=== PATIENT | male | born 1940 | race African-American/Black ===

== ENCOUNTER 2017-04-02 19:24 | Observation (INO) | payer MEDICARE ==
[~2017-04-02] VITALS: Ht 175.3 cm; Wt 100.7 kg
[~2017-04-02 19:24] MED LIST: AMLO10TA2 PO; Atenolol PO; BIMA2.5D EACHEYE; COLC0.6T34 PO; FERR325C PO; FLUT1DIS3 IH
[2017-04-02] MEDS ORDERED: FAMOTIDINE 20 MG/2 ML VIAL ONE (19:28)
[2017-04-02] MEDS ORDERED: methylPREDNISolone SOD SUCC PF 125 MG/2 ML VIAL. ONE (19:28)
[2017-04-02] MEDS ORDERED: diphenhydrAMINE 50 MG/ML VIAL ONE (19:28)
[2017-04-02] MEDS ORDERED: EPINEPHrine 1 MG/ML VIAL ONE (19:28)
[2017-04-02 19:43] LABS: BASO # 0.1 x10^3/uL (0.0-0.2); BASO % 1 % (0-3); EOS % 8 % (0-3); HEMOGLOBIN 15.5 g/dL (13.0-17.5); LYMPH # 3.6 x10^3/uL (1.0-4.8); LYMPH % 39 % (24-48); MEAN CORPUSCULAR HEMOGLOBIN 30 pg (25-35); MEAN CORPUSCULAR HGB CONC 33 g/dL (31-37); MEAN CORPUSCULAR VOLUME 89 fL (79-100); MONO % 12 % (0-9); NEUT % 40 % (31-73); PLATELET COUNT 338 x10^3/uL (140-400); RED BLOOD COUNT 5.27 x10^6/uL (4.30-5.70); RED CELL DISTRIBUTION WIDTH 14.2 % (11.5-14.5); WHITE BLOOD COUNT 9.3 x10^3/uL (4.0-11.0)
[2017-04-02] MEDS ORDERED: EPINEPHrine 1 MG/ML VIAL IM ONE ×2 (19:45→20:30)
[2017-04-02] MEDS ORDERED: methylPREDNISolone SOD SUCC PF 125 MG/2 ML VIAL. IV ONE (19:45)
[2017-04-02] MEDS ORDERED: FAMOTIDINE 20 MG/2 ML VIAL IVP ONE (19:45)
[2017-04-02] MEDS ORDERED: diphenhydrAMINE 50 MG/ML VIAL IV ONE (19:45)
[2017-04-02 19:59] LABS: CALCIUM 9.4 mg/dL (8.5-10.1); CREATININE 0.9 mg/dL (0.7-1.3); GFR 99.3; POTASSIUM 4.1 mmol/L (3.5-5.1)
[2017-04-02] MEDS ORDERED: EPIN0.3A8 IJ (19:59)
--- NOTE | 2017-04-02 19:59 | PHYS DOC ---
Past Medical History Past Medical History: Hypertension, Other Additional Past Medical Histor: GOUT Past Surgical History: Other Additional Past Surgical Histo: EYE SURGERY Alcohol Use: None Drug Use: None Adult General Chief Complaint Chief Complaint: ALLERGIC REACTION HPI HPI 77-year-old male presenting to the emergency department after having allergic reaction throat swelling and tongue swelling. This started approximately an hour prior to arrival. He is had this episode a few times now and does not know what the inciting factor is. Duration constant. No alleviating or exacerbating factors. Timing nonspecific. He denies being on STUART inhibitor's. Review of systems is negative for chest pain shortness of breath. He does report mild difficulty swallowing. She denies confusion syncope. All other review of systems is negative unless otherwise noted in history of present illness. ED course: 77-year-old male presenting to the emergency department today with anaphylaxis. Less likely STUART inhibitor angioedema given the lack of STUART inhibitor history. IV established. Intramuscular epinephrine along with Benadryl and steroids given. On reexamination the patient had improved. Patient' s tongue was mildly swollen still. No stridor present. Otherwise much improvement. Because of the tongue swelling the patient was to overnight for medical monitoring. The patient was then admitted to Dr. warren for further evaluation workup and care. Review of Systems Review of Systems SEE ABOVE. Current Medications Current Medications Current Medications Medications (Trade) Dose Ordered Sig/Ken Start Time Stop Time Status Last Admin Dose Admin Diphenhydramine HCl (Benadryl) 25 mg 1X ONCE 04/02/17 19:45 04/02/17 19:46 DC 04/02/17 19:38 25 MG Epinephrine HCl (Adrenalin) 0.3 mg 1X ONCE 04/02/17 20:30 04/02/17 20:31 DC 04/02/17 20:21 0.3 MG Famotidine (Pepcid) 20 mg 1X ONCE 04/02/17 19:45 04/02/17 19:46 DC 04/02/17 19:38 20 MG Methylprednisolone Sodium Succinate (SOLU-Medrol 125MG VIAL) 125 mg 1X ONCE 04/02/17 19:45 04/02/17 19:46 DC 04/02/17 19:37 125 MG Allergies Allergies Allergies Coded Allergies Type Severity Reaction Last Updated Verified No Known Drug Allergies 07/23/14 No Physical Exam Physical Exam Constitutional: Well developed, well nourished, no acute distress, non-toxic appearance. [] HENT: Normocephalic, atraumatic, bilateral external ears normal, . The patient' s face has mild swelling generally. His tongue is swollen. He is able to control his secretions during the examination and is able to swallow. Mild swelling of the neck as well. No stridor present. Eyes: PERRLA, EOMI, conjunctiva normal, no discharge. Neck: Normal range of motion, no tenderness, supple, no stridor. [] Cardiovascular:Heart rate regular rhythm, no murmur [] Lungs & Thorax: Bilateral breath sounds clear to auscultation Abdomen: Bowel sounds normal, soft, no tenderness, no masses, no pulsatile masses. [] Skin: Warm, dry, no erythema, no rash. [] Back: No tenderness, no CVA tenderness. Extremities: No tenderness, no cyanosis, no clubbing, ROM intact, no edema. [] Neurologic: Alert and oriented X 3, normal motor function, normal sensory function, no focal deficits noted. Psychologic: Affect normal, judgement normal, mood normal. [] Current Patient Data Vital Signs Vital Signs Date Time Temp Pulse Resp B/P (MAP) Pulse Ox O2 Delivery O2 Flow Rate FiO2 04/02/17 19:33 97.9 73 15 178/93 (121) 99 Room Air 97.9 Lab Values Laboratory Tests Test 04/02/17 19:35 White Blood Count 9.3 x10^3/uL (4.0-11.0) Red Blood Count 5.27 x10^6/uL (4.30-5.70) Hemoglobin 15.5 g/dL (13.0-17.5) Hematocrit 47.0 % (39.0-53.0) Mean Corpuscular Volume 89 fL (79-100) Mean Corpuscular Hemoglobin 30 pg (25-35) Mean Corpuscular Hemoglobin Concent 33 g/dL (31-37) Red Cell Distribution Width 14.2 % (11.5-14.5) Platelet Count 338 x10^3/uL (140-400) Neutrophils (%) (Auto) 40 % (31-73) Lymphocytes (%) (Auto) 39 % (24-48) Monocytes (%) (Auto) 12 % (0-9) H Eosinophils (%) (Auto) 8 % (0-3) H Basophils (%) (Auto) 1 % (0-3) Neutrophils # (Auto) 3.8 x10^3uL (1.8-7.7) Lymphocytes # (Auto) 3.6 x10^3/uL (1.0-4.8) Monocytes # (Auto) 1.2 x10^3/uL (0.0-1.1) H Eosinophils # (Auto) 0.7 x10^3/uL (0.0-0.7) Basophils # (Auto) 0.1 x10^3/uL (0.0-0.2) Sodium Level 141 mmol/L (136-145) Potassium Level 4.1 mmol/L (3.5-5.1) Chloride Level 105 mmol/L (98-107) Carbon Dioxide Level 29 mmol/L (21-32) Anion Gap 7 (6-14) Blood Urea Nitrogen 11 mg/dL (8-26) Creatinine 0.9 mg/dL (0.7-1.3) Estimated GFR (Cockcroft-Gault) 99.3 Glucose Level 102 mg/dL (70-99) H Calcium Level 9.4 mg/dL (8.5-10.1) Laboratory Tests 04/02/17 19:35 Laboratory Tests 04/02/17 19:35 EKG EKG [] Radiology/Procedures Radiology/Procedures [] Course & Med Decision Making Course & Med Decision Making Pertinent Labs and Imaging studies reviewed. (See chart for details) [] Dragon Disclaimer Dragon Disclaimer This electronic medical record was generated, in whole or in part, using a voice recognition dictation system. Departure Departure Impression: Primary Impression: Anaphylaxis Disposition: 01 HOME, SELF-CARE Condition: IMPROVED Referrals: DANNY COLLADO MD (PCP) Patient Instructions: Anaphylactic Reaction Scripts Epinephrine (EPINEPHRINE) 0.3 Mg/0.3 Ml Auto.injct 0.3 MG IJ PRN Y for ANAPHYLAXIS, #1 Prov: ROXIE HEATON MD 04/02/17 Critical Care Time Critical care time was [42] minutes exclusive of procedures. Time was spent evaluating the patient, ordering the administration of epinephrine and other medications, reevaluating the patient, and discussing with the admitting provider. Time was also spent documenting. ROXIE HEATON MD Apr 02, 2017 19:59
[2017-04-02] MEDS ORDERED: MORPHINE SULFATE 2 MG/ML DISP.SYRIN. IV PRN (21:00)
[2017-04-02] MEDS ORDERED: ONDANSETRON PF 4 MG/2 ML VIAL. IV PRN (21:00)
[2017-04-02 21:30] VITALS: BP 171/90
[2017-04-02] MEDS ORDERED: ATEN50TA PO (21:33)
[2017-04-02 23:00] VITALS: BP 157/86
[2017-04-03 03:00] VITALS: BP 154/86
[2017-04-03 05:25] LABS: BASO % 0 % (0-3); EOS % 0 % (0-3); HEMATOCRIT 47.1 % (39.0-53.0); HEMOGLOBIN 15.9 g/dL (13.0-17.5); LYMPH # 1.2 x10^3/uL (1.0-4.8); LYMPH % 17 % (24-48); MEAN CORPUSCULAR HEMOGLOBIN 30 pg (25-35); MEAN CORPUSCULAR HGB CONC 34 g/dL (31-37); MEAN CORPUSCULAR VOLUME 88 fL (79-100); MONO % 1 % (0-9); NEUT % 82 % (31-73); PLATELET COUNT 359 x10^3/uL (140-400); RED BLOOD COUNT 5.36 x10^6/uL (4.30-5.70); RED CELL DISTRIBUTION WIDTH 14.3 % (11.5-14.5); WHITE BLOOD COUNT 7.2 x10^3/uL (4.0-11.0)
[2017-04-03 05:57] LABS: CALCIUM 9.5 mg/dL (8.5-10.1); GFR 87.9; POTASSIUM 4.4 mmol/L (3.5-5.1)
[2017-04-03 07:00] VITALS: BP 149/93
[2017-04-03] MEDS ORDERED: NON FORMULARY ITEM (Fluticasone/Salmeterol (Advair 250-50 Diskus) 1 PUFF) IH PRN (09:30)
[2017-04-03] MEDS ORDERED: ATENOLOL 50 MG TABLET. PO SCH (10:00)
[2017-04-03] MEDS ORDERED: amLODIPine BESYLATE 10 MG TABLET PO SCH (10:00)
[2017-04-03 10:52] VITALS: BP 139/88
[2017-04-03] MEDS ORDERED: BUDESONIDE 0.5 MG/2 ML NEBU. NEB SCH (11:00)
[2017-04-03] MEDS ORDERED: ALBUTEROL SULFATE 2.5 MG/3 ML NEBU. NEB SCH (12:00)
[2017-04-03] MEDS ORDERED: EPIPEN 2-P0.3 MG/0.3 IJ (12:47)
[2017-04-03] MEDS ORDERED: PROAIR HFA8.5 GM INH (12:47)
[2017-04-03] MEDS ORDERED: LATANOPROST 0.005% OPHTH SOLUTION 2.5ML BOTTLE. OU SCH (21:00)
--- NOTE | 2017-04-04 00:16 | HP ---
ADMIT DATE: 04/02/2017 ADMITTING DIAGNOSES AND CHIEF COMPLAINT: Tongue and neck swelling. HISTORY OF PRESENT ILLNESS AND HOSPITAL COURSE: This patient is a 77-year-old -[place] male who was in usual state of health when he woke up with swollen tongue and neck. He had had minimal difficulty breathing, but had increased swelling, it was not resolved; therefore, came to Emergency Room for further evaluation. He was felt to have an allergic reaction and the patient does state he had a ____ back up in his home and had some wetness in his carpet and the cleaning company came and cleaned the carpet and some of the chemicals may have caused him to react. The patient was given IV steroids and treated in the Emergency Room and resolved, but due to clear recurrence and overt obstruction, he was admitted overnight for evaluation. The patient's symptoms continued to improve and no further evidence of allergies, therefore, plans for discharge to home were made and the patient was given EpiPen for recurrent Emergency symptoms and told to refer to Emergency Room if increased swelling does occur. He was discharged on his previous home medications without change and will follow up in the clinic in 2-3 days for continued care. PAST MEDICAL HISTORY: Significant for, 1. Asthma. 2. Hypertension. 3. Morbid obesity. 4. Hyperlipidemia. 5. Inflammatory arthritis. FAMILY HISTORY: Noncontributory. SOCIAL HISTORY: He does not smoke. He lives with his . He does not use alcohol. 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 ALLERGIES: Denies any drug allergies. REVIEW OF SYSTEMS: Benign except for current ____ of swelling. 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 PHYSICAL EXAMINATION: GENERAL: He is a morbidly obese -[place] male in no apparent distress. HEENT: Was now benign after treatment in the Emergency Room and observation for 12 hours. HEART: Regular rate and rhythm. LUNGS: Revealed occasional wheezing, but 100% saturation on room air. CARDIAC: Regular rate and rhythm. ABDOMEN: Soft, nontender. EXTREMITIES: Showed 2+ pulses without significant edema. NEUROLOGIC: Intact. ASSESSMENT: 1. ____ due to foreign chemical. 2. See past medical history. PLAN: To proceed with outpatient observation and discharged to home to follow up in the clinic in 3 days for routine 6-month checkup. DANNY COLLADO MD DR: Liza JOB#: [id number] / [id number]
== END 2017-04-03 13:20 | disposition home or self-care (01) ==
LOC: ER 19:24 → 5 SOUTH 20:43
PROVIDERS: ADMIT Family Medicine; ATTEND Family Medicine
DX: T88.6XXA Anaphylactic reaction due to adverse effect of correct drug or medicament properly administered, initial encounter (principal); J45.909 Unspecified asthma, uncomplicated; I10 Essential (primary) hypertension; E78.5 Hyperlipidemia, unspecified; M06.4 Inflammatory polyarthropathy; E66.01 Morbid (severe) obesity due to excess calories; M10.9 Gout, unspecified; X58.XXXA Exposure to other specified factors, initial encounter
CPT/HCPCS: 36415; 80048; 85027; 94250; 94640; 94760; 96372; 96374; 96375; 99291; G0378; J0171; J1200; J2930; S0028; G0379

== ENCOUNTER 2019-07-28 15:00 | Inpatient (IN) | payer MEDICARE ==
[~2019-07-28] VITALS: Ht 177.8 cm; Wt 102.3 kg
[~2019-07-28 15:00] MED LIST changes: +ALBU2.5V8 INH; -AMLO10TA2 PO; +AMLO10TA8 PO; +ATEN50TA PO; +EPIN0.3A8 IJ; +EPIPEN 2-P0.3 MG/0.3 IJ
[2019-07-28] MEDS ORDERED: AMIODARONE 150 MG in IV DEXTROSE 5% 100ML 100 ML IV ONE (15:15)
[2019-07-28] MEDS ORDERED: AMIODARONE 900 MG in IV DEXTROSE 5% 500 ML IV PRN (15:15)
[2019-07-28] MEDS ORDERED: AMIODARONE 150 MG/3 ML VIAL ONE (15:16)
[2019-07-28] MEDS ORDERED: ETOMIDATE 20 MG/10 ML VIAL. IV ONE (15:20)
[2019-07-28] MEDS ORDERED: PROPOFOL 0 ML IV ONE (15:21)
--- NOTE | 2019-07-28 15:21 | PHYS DOC ---
MODERATE SEDATION ASSESSMENT RISKS/ALTERNATIVES Risks/Alternatives Risks and alternatives of this type of sedation and procedure discussed with: RISK/ALTERNATIVES: Patient H & P ON CHART H & P H & P on chart and reviewed for co-morbid conditions and appropriate labs. H&P ON CHART: Yes STATUS PREG STATUS ASSESSED: N/A MEDS/ALLERGIES REVIEWED Meds/Allergies Reviewed Medications and Allergies including time and route of recently administered narcotics and sedatives. MEDS/ALLERGIES REVIEWED: Yes ASA RATING ASA RATING: III AIRWAY ASSESSMENT Airway Assessment Airway patency, oral function limitations, presence of caps, crowns, dentures, partials, and ability to extend neck assessed. AIRWAY ASSESSMENT: Yes MALLAMPATI SCORE MALLAMPATI SCORE: II PRE-SEDATION ASSESSMENT PRE-SEDATION ASSESSMENT: Yes ERICK MONTESINOS MD Jul 28, 2019 15:21
[2019-07-28 15:22] LABS: BASO # 0.1 x10^3/uL (0.0-0.2); BASO % 1 % (0-3); EOS # 0.4 x10^3/uL (0.0-0.7); EOS % 5 % (0-3); HEMATOCRIT 49.1 % (39.0-53.0); HEMOGLOBIN 16.3 g/dL (13.0-17.5); LYMPH # 3.1 x10^3/uL (1.0-4.8); LYMPH % 37 % (24-48); MEAN CORPUSCULAR HEMOGLOBIN 30 pg (25-35); MEAN CORPUSCULAR HGB CONC 33 g/dL (31-37); MEAN CORPUSCULAR VOLUME 90 fL (79-100); MONO % 12 % (0-9); NEUT # 3.9 x10^3/uL (1.8-7.7); NEUT % 46 % (31-73); PLATELET COUNT 363 x10^3/uL (140-400); RED BLOOD COUNT 5.47 x10^6/uL (4.30-5.70); RED CELL DISTRIBUTION WIDTH 14.5 % (11.5-14.5); WHITE BLOOD COUNT 8.6 x10^3/uL (4.0-11.0)
[2019-07-28 15:29] LABS: PROTHROMBIN TIME PATIENT 14.3 SEC (11.7-14.0)
[2019-07-28 15:32] LABS: CALCIUM 9.7 mg/dL (8.5-10.1); CREATININE 1.7 mg/dL (0.7-1.3); GFR 47.4; POTASSIUM 4.1 mmol/L (3.5-5.1)
[2019-07-28 15:38] LABS: ALBUMIN 3.5 g/dL (3.4-5.0); ALBUMIN/GLOBULIN RATIO 0.7 (1.0-1.7); TOTAL BILIRUBIN 1.8 mg/dL (0.2-1.0); TOTAL PROTEIN 8.5 g/dL (6.4-8.2)
--- NOTE | 2019-07-28 15:43 | PHYS DOC ---
Past Medical History Past Medical History: Asthma, Hypertension, Other Additional Past Medical Histor: , GLAUCOMA Past Surgical History: Other Additional Past Surgical Histo: EYE SURGERY, COLONOSCOPY Alcohol Use: None Drug Use: None Adult General Chief Complaint Chief Complaint: RAPID HEART RATE HPI HPI Patient is a 79 year old male presenting with weakness chest pain left-sided 2 hours associated with palpitations. In the emergency room triage was found to have a heart rate of 200 overall history is limited by the patient acuity Review of Systems Review of Systems Overall history limited by the patient's acuity however patient did note feeling not well for the last 2 days intermittent chest discomfort had some before going to [employer] went to [employer] did well then had this pain and discomfort again around noon or so Current Medications Current Medications Current Medications Medications (Trade) Dose Ordered Sig/Ken Start Time Stop Time Status Last Admin Dose Admin Amiodarone HCl (Cordarone) 150 mg STK-MED ONCE 07/28/19 15:16 07/28/19 15:16 DC Amiodarone HCl 150 mg/Dextrose 103 ml @ 618 mls/hr 1X ONCE 07/28/19 15:15 07/28/19 15:24 DC 07/28/19 15:40 618 MLS/HR Amiodarone HCl 900 mg/Dextrose 518 ml @ 33 mls/hr CONT PRN 07/28/19 15:15 07/28/19 15:40 DC 07/28/19 15:39 33 MLS/HR Aspirin (Children'S Aspirin) 324 mg 1X ONCE 07/28/19 15:45 07/28/19 15:46 DC 07/28/19 15:51 324 MG Etomidate (Amidate) 20 mg STK-MED ONCE 07/28/19 15:20 07/28/19 15:20 DC Heparin Sodium (Porcine) (Heparin Sodium) 4,000 unit 1X ONCE 07/28/19 16:00 07/28/19 16:01 UNV Propofol 0 ml @ As Directed STK-MED ONCE 07/28/19 15:21 07/28/19 15:21 DC Allergies Allergies Allergies Coded Allergies Type Severity Reaction Last Updated Verified No Known Drug Allergies 07/23/14 No Physical Exam Physical Exam Constitutional: Well developed, moderate distress HENT: Normocephalic, atraumatic, bilateral external ears normal, oropharynx moist, no oral exudates, nose normal. [] Eyes: PERRLA, EOMI, conjunctiva normal, no discharge. [] Neck: Normal range of motion, no tenderness, supple, no stridor. [] Cardiovascular:tachy diffcult to assess murmur Lungs & Thorax: Bilateral breath sounds clear to auscultation [] Abdomen: Bowel sounds normal, soft, no tenderness, no masses, no pulsatile masses. [] Skin: Warm, dry, no erythema, no rash. [] Back: No tenderness, no CVA tenderness. [] Extremities: No tenderness, no cyanosis, no clubbing, ROM intact, no edema. [] Neurologic: Alert and oriented X 3, normal motor function, normal sensory function, no focal deficits noted. [] Psychologic: Affect normal, judgement normal, mood normal. [] Current Patient Data Vital Signs Vital Signs Date Time Temp Pulse Resp B/P (MAP) Pulse Ox O2 Delivery O2 Flow Rate FiO2 07/28/19 15:40 71 168/100 Lab Values Laboratory Tests Test 07/28/19 15:10 White Blood Count 8.6 x10^3/uL (4.0-11.0) Red Blood Count 5.47 x10^6/uL (4.30-5.70) Hemoglobin 16.3 g/dL (13.0-17.5) Hematocrit 49.1 % (39.0-53.0) Mean Corpuscular Volume 90 fL (79-100) Mean Corpuscular Hemoglobin 30 pg (25-35) Mean Corpuscular Hemoglobin Concent 33 g/dL (31-37) Red Cell Distribution Width 14.5 % (11.5-14.5) Platelet Count 363 x10^3/uL (140-400) Neutrophils (%) (Auto) 46 % (31-73) Lymphocytes (%) (Auto) 37 % (24-48) Monocytes (%) (Auto) 12 % (0-9) H Eosinophils (%) (Auto) 5 % (0-3) H Basophils (%) (Auto) 1 % (0-3) Neutrophils # (Auto) 3.9 x10^3/uL (1.8-7.7) Lymphocytes # (Auto) 3.1 x10^3/uL (1.0-4.8) Monocytes # (Auto) 1.0 x10^3/uL (0.0-1.1) Eosinophils # (Auto) 0.4 x10^3/uL (0.0-0.7) Basophils # (Auto) 0.1 x10^3/uL (0.0-0.2) Prothrombin Time 14.3 SEC (11.7-14.0) H Prothrombin Time INR 1.1 (0.8-1.1) Sodium Level 145 mmol/L (136-145) Potassium Level 4.1 mmol/L (3.5-5.1) Chloride Level 105 mmol/L (98-107) Carbon Dioxide Level 29 mmol/L (21-32) Anion Gap 11 (6-14) Blood Urea Nitrogen 22 mg/dL (8-26) Creatinine 1.7 mg/dL (0.7-1.3) H Estimated GFR (Cockcroft-Gault) 47.4 BUN/Creatinine Ratio 13 (6-20) Glucose Level 126 mg/dL (70-99) H Calcium Level 9.7 mg/dL (8.5-10.1) Magnesium Level 2.0 mg/dL (1.8-2.4) Total Bilirubin 1.8 mg/dL (0.2-1.0) H Aspartate Amino Transferase (AST) 46 U/L (15-37) H Alanine Aminotransferase (ALT) 48 U/L (16-63) Alkaline Phosphatase 67 U/L (46-116) Troponin I Quantitative 1.026 ng/mL (0.000-0.055) XR-Mtu-B-Type Natriuretic Peptide 6999 pg/mL (0-449) H Total Protein 8.5 g/dL (6.4-8.2) H Albumin 3.5 g/dL (3.4-5.0) Albumin/Globulin Ratio 0.7 (1.0-1.7) L Laboratory Tests 07/28/19 15:10 Laboratory Tests 07/28/19 15:10 EKG EKG []EKG showed a normal sinus rhythm with rate of 74 there was a bundle branch block pattern there is some borderline ST elevation in lead 3 no clear STEMI was identified interpreted by me the time of encounter Radiology/Procedures Radiology/Procedures [] Course & Med Decision Making Course & Med Decision Making Pertinent Labs and Imaging studies reviewed. (See chart for details) [] Critical care time was 45 minutes exclusive of procedures. Patient presents with ventricular tachycardia rate of 190 perform cardioversion due to her instability chest pain. Informed consent was obtained patient's identity was confirmed with place the patient on cardiac specialist end-tidal CO2 continuous pulse ox blood pressure monitoring cardiac monitoring we gave a total of 8 mg of etomidate after the appropriate time out patient had no apnea and no hypoxia I performed a synchronous cardioversion at 100 J with good result we cardioverted the patient out of ventricular tachycardia into sinus rhythm repeat blood pressure was 168/100 patient slowly woke up over the course of 10 minutes. EKG prashant allen consulted will come in to cath. CAME IN to er at 345 plan to admit to [facility], currently labs are in process trop elev k is okay aspirin heparin amiodarone Dragon Disclaimer Dragon Disclaimer This electronic medical record was generated, in whole or in part, using a voice recognition dictation system. Departure Departure Impression: Primary Impression: Ventricular tachycardia Disposition: ADMITTED INPATIENT Admitting Physician: Angelica Lopez Condition: CRITICAL Referrals: DANNY COLLADO MD (PCP) ERICK MONTESINOS MD Jul 28, 2019 15:43
[2019-07-28] MEDS ORDERED: ASPIRIN CHEWABLE 81 MG TABLET. PO ONE (15:45)
[2019-07-28] MEDS ORDERED: HEPARIN for IV BOLUS 10,000 UNIT/10 ML VIAL. ONE ×2 (15:52→16:03)
[2019-07-28] MEDS ORDERED: HEPARIN for IV BOLUS 10,000 UNIT/10 ML VIAL. IV ONE ×2 (16:00→17:00)
[2019-07-28] MEDS ORDERED: fentaNYL PF VIAL 100 MCG/2 ML VIAL ONE (16:02)
[2019-07-28] MEDS ORDERED: IODIXANOL 320 MG/ML 100 ML VIAL. ONE ×2 (16:02→16:43)
[2019-07-28] MEDS ORDERED: VERAPAMIL 5 MG/2 ML VIAL. ONE (16:03)
[2019-07-28] MEDS ORDERED: LIDOCAINE 1% PF 2 ML VIAL. ONE (16:03)
[2019-07-28] MEDS ORDERED: NITROGLYCERIN 200 MCG/2 ML SYRINGE FOR CATH/VASC LAB. ONE (16:03)
[2019-07-28] MEDS ORDERED: MIDAZOLAM HCL/PF 2 MG/2 ML VIAL. ONE (16:03)
--- NOTE | 2019-07-28 16:23 | RAD ---
PORTABLE CHEST 1V Clinical History: Technique: AP view of the chest was obtained at 07/28/2019 3:14 PM. Comparison: None. Findings: The heart is mildly enlarged. The pulmonary vessels appear normal. There is linear opacities in the left lung base. Impression: 1. Mild, cardiomegaly. 2. Mild left basal infiltrate likely discoid atelectasis. Electronically signed by: Rufus Khan III, MD (07/28/2019 4:20 PM) [facility]
[2019-07-28] MEDS ORDERED: TIROFIBAN 12.5MG -0.9% NS 250 ML IV ONE (16:43)
[2019-07-28] MEDS ORDERED: IODIXANOL 320 MG/ML 100 ML VIAL. IART ONE (17:00)
[2019-07-28] MEDS ORDERED: NITROGLYCERIN 200 MCG/2 ML SYRINGE FOR CATH/VASC LAB. ICAR ONE (17:00)
[2019-07-28] MEDS ORDERED: CONTRAST GIVEN. MC PRN (17:00)
[2019-07-28] MEDS ORDERED: TIROFIBAN 12.5MG -0.9% NS 250 ML IV PRN (17:00)
[2019-07-28] MEDS ORDERED: HEPARIN for IV BOLUS 10,000 UNIT/10 ML VIAL. IART ONE (17:00)
[2019-07-28] MEDS ORDERED: NITROGLYCERIN 200 MCG/2 ML SYRINGE FOR CATH/VASC LAB. IART ONE (17:00)
[2019-07-28] MEDS ORDERED: fentaNYL PF VIAL 100 MCG/2 ML VIAL IV ONE (17:00)
[2019-07-28] MEDS ORDERED: VERAPAMIL 5 MG/2 ML VIAL. IART ONE (17:00)
[2019-07-28] MEDS ORDERED: MIDAZOLAM HCL/PF 2 MG/2 ML VIAL. IV ONE (17:00)
[2019-07-28] MEDS ORDERED: LIDOCAINE 1% PF 2 ML VIAL. INJ ONE (17:00)
[2019-07-28] MEDS ORDERED: PRASUGREL 10 MG TABLET. ONE (17:11)
--- NOTE | 2019-07-28 17:44 | CONS ---
DATE OF CONSULTATION: 07/28/2019 REASON FOR CONSULTATION: Chest pain and VT. HISTORY OF PRESENT ILLNESS: The patient is a pleasant 79-year-old man with past medical history as noted below, presented to the hospital in the setting of stuttering chest pain and dyspnea. Upon arrival to the ER, was noted to be in ventricular tachycardia with heart rate of 190. He was promptly cardioverted and post EKG did not reveal any acute ST elevations, but he did have an elevated troponin with persistent stuttering chest pain and therefore after discussion with the patient and the family, a decision was made to take him emergently to the paint laboratory technician. In speaking with the patient at baseline, he is able to do activities of daily living without any significant problems. Over the last 3-4 days, he has had exertional dyspnea and chest pain. PAST MEDICAL HISTORY: 1. Asthma. 2. Hypertension. SOCIAL HISTORY: The patient denies any alcohol, tobacco or illicit drug use. He is retired. FAMILY HISTORY: Noncontributory. ALLERGIES: No known drug allergies. CURRENT CARDIOVASCULAR MEDICATIONS: Unknown. REVIEW OF SYSTEMS: Negative unless otherwise mentioned above in HPI. PHYSICAL EXAMINATION: VITAL SIGNS: Afebrile, heart rate 100, blood pressure 178/86, respiratory rate 20 with a pulse oxygenation of 98% on 2 liters nasal cannula. GENERAL: He was mildly sedated from his recent cardioversion, but otherwise alert and oriented to person, place and time. HEAD AND NECK: Unremarkable. CARDIAC: Regular rate and rhythm without any obvious murmurs, rubs or gallops. LUNGS: Notable for decreased breath sounds at the bases. ABDOMEN: Obese, protuberant, nontender. EXTREMITIES: No cyanosis or clubbing with 2+ radial and dorsalis pedis pulses. NEUROLOGIC: No focal deficits. MUSCULOSKELETAL: No obvious trauma. DIAGNOSTIC STUDIES: Troponin elevated at 1.8. EKG demonstrates sinus rhythm with first degree AV block, right bundle branch block and PVCs. EKG during initial arrival revealed a ventricular tachycardia with low inferior axis. Cardiac catheterization demonstrated a 1-vessel coronary artery disease with subtotal occlusion of the ramus intermedius and he underwent successful stenting of the large ramus branch and balloon angioplasty of the smaller branch. IMPRESSION: 1. Ventricular tachycardia, likely ischemia due to ramus occlusion. 2. One vessel coronary artery disease. 3. Hypertension. 4. Acute on chronic decompensated diastolic heart failure with an LVEDP of 30. RECOMMENDATIONS: 1. Continue aspirin 81 mg daily, prasugrel 10 mg daily. 2. High dose statin therapy and cardiac rehabilitation upon discharge. 3. We will plan for an echocardiogram and further evaluation of his chronic kidney disease. 4. Likely will go home on a LifeVest therapy with consideration of ICD on an outpatient basis depending on his ejection fraction. Thank you for this consultation. GUNJAN OSPINA MD DR: CANDICE/nts JOB#: [id number] / [id number]
[2019-07-28 17:56] VITALS: BP 146/81
[2019-07-28 19:30] VITALS: BP 163/75
--- NOTE | 2019-07-28 20:06 | NUR ---
Patient admitted too room 107 at 1800 from labor commissioner. R wrist TR band with 14ml air remaining at time of arrival. Full code, no allergies. Call light in hand. Patient on Amio gtt, Aggrastat, MIV. Patient A/O x4, able to answer admit questions. Patient's son and DIL at bedside. See vascular assessment, VS, Assessments. Patient settled, assessed. Report given to Janee HALL.
[2019-07-28 20:55] VITALS: BP 153/81
[2019-07-28 21:30] VITALS: BP 145/78
[2019-07-28 22:45] VITALS: BP 176/79
[2019-07-28 23:32] VITALS: BP 176/79
[2019-07-29] VITALS (19 sets, daily range): BP systolic 104–191; BP diastolic 44–98
[2019-07-29] MEDS ORDERED: TIZA4TAB8 PO (06:42)
[2019-07-29] MEDS ORDERED: MELO7.5T29 PO (06:42)
[2019-07-29] MEDS ORDERED: TAMS0.4C97 PO (06:42)
[2019-07-29] MEDS ORDERED: METO50TA6 PO (06:42)
[2019-07-29] MEDS ORDERED: CHOL500050 PO (06:42)
[2019-07-29] MEDS ORDERED: NON FORMULARY ITEM (Fluticasone/Salmeterol (Advair 250-50 Diskus) 1 PUFF) IH PRN (06:45)
[2019-07-29] MEDS ORDERED: ALBUTEROL SULFATE 2.5 MG/3 ML NEBU. INH PRN (07:00)
--- NOTE | 2019-07-29 07:34 | EKG ---
[facility] [address] [place] [address] Test Date: 2019-07-28 Test Time: 15:09:18 Pat Name: CONY VILCHIS Department: Room: [facility] 1 Gender: M Pin Pusher: : 1940 Requested By: ERICK MONTESINOS Order Number: [id number] Reading MD: Jordan Loera MD Measurements Intervals [place] Rate: 191 P: HI: QRS: 57 QRSD: 180 T: -143 QT: 286 QTc: 511 Interpretive Statements PROBABLE VENTRICULAR TACHYCARDIA Electronically Signed On 08-06-2019 14:20:42 CDT by Jordan Loera MD
--- NOTE | 2019-07-29 07:37 | HP ---
ADMIT DATE: 07/28/2019 CHIEF COMPLAINT: Tachycardia. HISTORY OF PRESENT ILLNESS AND HOSPITAL COURSE: This patient is a 79-year-old -[place] male who states that two days prior to admission he did feel some palpitations; this resolved when taking aspirin. The patient began having recurrent palpitations on the day of admission with left-sided chest pain radiating to left arm, mild shortness of breath and diaphoresis. Upon arrival to the Emergency Room, he was found to be in ventricular tachycardia. The patient was conscious and was sedated and cardioverted with good results at this point. ST elevated TN was diagnosed and the patient was taken directly to the construction or leak gang laborer by Cardiology and had coronary artery disease diagnosed with a stent placed to a subtotal occlusion of the ramus intermedius as well as balloon angioplasty. The patient had excellent results and was transferred to the ICU. PAST MEDICAL HISTORY: Significant for: 1. Hypertension. 2. Asthma. 3. Hyperlipidemia. 4. Morbid obesity. 5. Inflammatory arthritis. 6. Vitamin D deficiency. PAST SURGICAL HISTORY: The patient has no significant surgical history. FAMILY HISTORY: Noncontributory. SOCIAL HISTORY: The patient does not smoke. He does not use alcohol. 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 The patient lives alone. The patient's as of one year ago. ALLERGIES: The patient has no known drug allergies. REVIEW OF SYSTEMS: Negative for weight loss, cough, cold, congestion, nausea, vomiting. The patient did have palpitations, diaphoresis, mild shortness of breath and radiation of pain to the left arm with palpitations occurring approximately two days ago as well. PHYSICAL EXAMINATION: GENERAL: A well-nourished, well-developed obese -[place] male in no apparent distress on my exam. He is alert and oriented. HEENT: Benign. NECK: Supple. CARDIAC: Regular rate and rhythm without murmur. LUNGS: Clear with some upper airway wheezing noted. ABDOMEN: Soft, nontender, without masses. EXTREMITIES: Have 2+ pulses without significant edema. NEUROLOGIC: Showed no unilateral findings. ASSESSMENT: 1. Ventricular tachycardia. 2. ST elevated myocardial infarction. 3. Coronary artery disease. 4. Hypertension. PLAN: To proceed with Cardiology care post-stent placement. Add nystatin therapy and monitor the patient's post-cardiac catheterization and TN course. DANNY COLLADO MD DR: Liza JOB#: [id number] / [id number]
[2019-07-29] MEDS: ALBUTEROL SULFATE 2.5 MG/3 ML NEBU. NEB SCH ×5 (07:42→23:34)
[2019-07-29] MEDS: BUDESONIDE 0.5 MG/2 ML NEBU. NEB SCH ×2 (07:42→19:37)
[2019-07-29 08:31] LABS: BASO # 0.1 x10^3/uL (0.0-0.2); BASO % 1 % (0-3); EOS # 0.6 x10^3/uL (0.0-0.7); EOS % 7 % (0-3); HEMATOCRIT 45.8 % (39.0-53.0); HEMOGLOBIN 15.1 g/dL (13.0-17.5); LYMPH # 2.3 x10^3/uL (1.0-4.8); LYMPH % 27 % (24-48); MEAN CORPUSCULAR HEMOGLOBIN 30 pg (25-35); MEAN CORPUSCULAR HGB CONC 33 g/dL (31-37); MEAN CORPUSCULAR VOLUME 90 fL (79-100); MONO # 1.1 x10^3/uL (0.0-1.1); MONO % 13 % (0-9); NEUT # 4.3 x10^3/uL (1.8-7.7); NEUT % 51 % (31-73); PLATELET COUNT 311 x10^3/uL (140-400); RED BLOOD COUNT 5.09 x10^6/uL (4.30-5.70); RED CELL DISTRIBUTION WIDTH 14.3 % (11.5-14.5); WHITE BLOOD COUNT 8.3 x10^3/uL (4.0-11.0)
[2019-07-29] MEDS ORDERED: PRASUGREL 10 MG TABLET. PO SCH ×2 (08:45→09:45)
[2019-07-29] MEDS: MELOXICAM 7.5 MG TABLET PO SCH (09:28)
[2019-07-29] MEDS: METOPROLOL TART IMMED RELEASE 50 MG TABLET. PO SCH (09:28)
[2019-07-29] MEDS: amLODIPine BESYLATE 10 MG TABLET PO SCH (09:32)
[2019-07-29] MEDS ORDERED: PRASUGREL 10 MG TABLET. PO ONE (10:15)
--- NOTE | 2019-07-29 10:45 | PDOC ---
LIU BOB [facility] 07/29/19 1045: CARDIO Progress Notes Date and Time Date of Service 07/29/19 Time of Evaluation 1045 Subjective Subjective: No Chest Pain, No shortness of breath, No Palpitations Vitals Vitals Vital Signs Date Time Temp Pulse Resp B/P (MAP) Pulse Ox O2 Delivery O2 Flow Rate FiO2 07/29/19 09:32 73 192/110 07/29/19 08:30 98.1 95 Nasal Cannula 2.0 98.1 07/29/19 05:32 17 Weight Weight [ ] Input and Output Intake and Output Intake and Output 07/29/19 07:00 Intake Total 403 ml Output Total 800 ml Balance -397 ml Intake Oral 300 ml IV Total 103 ml Output Urine Total 800 ml Laboratory Labs Laboratory Tests Test 07/28/19 15:10 07/28/19 18:55 07/29/19 07:41 07/29/19 08:15 White Blood Count 8.6 x10^3/uL (4.0-11.0) 8.3 x10^3/uL (4.0-11.0) Red Blood Count 5.47 x10^6/uL (4.30-5.70) 5.09 x10^6/uL (4.30-5.70) Hemoglobin 16.3 g/dL (13.0-17.5) 15.1 g/dL (13.0-17.5) Hematocrit 49.1 % (39.0-53.0) 45.8 % (39.0-53.0) Mean Corpuscular Volume 90 fL (79-100) 90 fL (79-100) Mean Corpuscular Hemoglobin 30 pg (25-35) 30 pg (25-35) Mean Corpuscular Hemoglobin Concent 33 g/dL (31-37) 33 g/dL (31-37) Red Cell Distribution Width 14.5 % (11.5-14.5) 14.3 % (11.5-14.5) Platelet Count 363 x10^3/uL (140-400) 311 x10^3/uL (140-400) Neutrophils (%) (Auto) 46 % (31-73) 51 % (31-73) Lymphocytes (%) (Auto) 37 % (24-48) 27 % (24-48) Monocytes (%) (Auto) 12 % (0-9) 13 % (0-9) Eosinophils (%) (Auto) 5 % (0-3) 7 % (0-3) Basophils (%) (Auto) 1 % (0-3) 1 % (0-3) Neutrophils # (Auto) 3.9 x10^3/uL (1.8-7.7) 4.3 x10^3/uL (1.8-7.7) Lymphocytes # (Auto) 3.1 x10^3/uL (1.0-4.8) 2.3 x10^3/uL (1.0-4.8) Monocytes # (Auto) 1.0 x10^3/uL (0.0-1.1) 1.1 x10^3/uL (0.0-1.1) Eosinophils # (Auto) 0.4 x10^3/uL (0.0-0.7) 0.6 x10^3/uL (0.0-0.7) Basophils # (Auto) 0.1 x10^3/uL (0.0-0.2) 0.1 x10^3/uL (0.0-0.2) Prothrombin Time 14.3 SEC (11.7-14.0) Prothromb Time International Ratio 1.1 (0.8-1.1) Sodium Level 145 mmol/L (136-145) Potassium Level 4.1 mmol/L (3.5-5.1) Chloride Level 105 mmol/L (98-107) Carbon Dioxide Level 29 mmol/L (21-32) Anion Gap 11 (6-14) Blood Urea Nitrogen 22 mg/dL (8-26) Creatinine 1.7 mg/dL (0.7-1.3) Estimated GFR (Cockcroft-Gault) 47.4 BUN/Creatinine Ratio 13 (6-20) Glucose Level 126 mg/dL (70-99) Calcium Level 9.7 mg/dL (8.5-10.1) Magnesium Level 2.0 mg/dL (1.8-2.4) Total Bilirubin 1.8 mg/dL (0.2-1.0) Aspartate Amino Transf (AST/SGOT) 46 U/L (15-37) Alanine Aminotransferase (ALT/SGPT) 48 U/L (16-63) Alkaline Phosphatase 67 U/L (46-116) Troponin I Quantitative 1.026 ng/mL (0.000-0.055) 0.857 ng/mL (0.000-0.055) IW-Unv-I-Type Natriuretic Peptide 6999 pg/mL (0-449) Total Protein 8.5 g/dL (6.4-8.2) Albumin 3.5 g/dL (3.4-5.0) Albumin/Globulin Ratio 0.7 (1.0-1.7) Glucose (Fingerstick) 96 mg/dL (70-99) Physical Exam HEENT: Neck Supple W Full Motion Chest: Symmetric LUNGS: Clear to Auscultation, Other (diminished ) Heart: S1S2, RRR, other (2/6 systolic murmur ) Abdomen: Soft N/T Extremities: Other (trace bilateral LE edema ) Neurology: alert, oriented, follow commands Assessment Assessment 1. Ventricular tachycardia most probably inducted by obstructive CAD. One e pisode of NSVT noted this morning on tele, otherwise maintaining SR 2. CAD; s/p PCI/ANAID to the ramus intermedius 3. Acute on chronic heart failure with probably systolic dysfunction; LVEDP 30 4. Hypertension; labile this morning 5. CKD Recommendations Lasix therapy Lipid panel Secondary prevention DAPT with ASA, Effient Continue BB, add ACEi Echocardiogram to assess LV systolic function If further significant arrhythmias noted, will start oral Amiodarone LIfeVest upon discharge if LVEF diminished Supportive care GUNJAN OSPINA MD 07/29/19 0622: CARDIO Progress Notes Plan Plan Pt. seen and examined. Agree with above BUSINESS INSTRUCTOR note Continue med titration of ischemic CMP Discussed with family LISBETHLIU [facility]ANTIAGO [facility] Jul 29, 2019 10:45 GUNJAN OSPINA MD Jul 29, 2019 21:59
--- NOTE | 2019-07-29 11:49 | CARD ---
MR#: [id number] Date of Study: 07/28/2019 Ordering Physician: GUNJAN OSPINA, Referring Physician: GUNJAN OSPINA, Tech: RT Hugo (R) KAITLYN APPROVED REPORT Technologist: RT Hugo (R) KAITLYN Nurse: Wilma Zaman R.N. Procedure(s) performed: FLUORO TIME 9.6 MINUTES DOSE 223.88 Gycm2 CONTRAST 154 VISIPAQUE MODERATE SEDATION 67 MINUTES LHC, Coronary angiography PCI of the Ramus Intermedius HISTORY : The patient is a 79 year-old male with a history of . INDICATION The indication(s) include : ventricular tachycardia. CSHA Clinical Frailty Scale CS Clinical Frailty Scale: Managing Well Heart Failure Heart Failure: Yes If Yes, Newly Diagnosed: Yes If Yes, HF Type: Diastolic If Yes, NYHA Class: Class III PROCEDURE NARRATIVE INFORMED CONSENT: After explaining the risks and benefits of the procedure and alternatives, informed consent was obtained. The patient was brought electively to the cardiac catheterization lab. A timeout was performed confi rming the patient's name, date of , procedure, and site of procedure. All necessary personnel w ere wearing the appropriate protective equipment and radiation monitor devices. (See nursing notes for medications administered). ACCESS: The right wrist was sterilely prepped and draped in the usual fashion. The right wrist was infiltrat ed with 1 mL of 2% lidocaine for subcutaneous anesthesia. A 6 Vietnamese Terumo glide sheath was inserte d into the right radial artery without difficulty. CORONARY ANGIOGRAPHY: Right and left coronary angiography was performed using a 6Fr TIG 4.0 catheter. Left ventricular en d diastolic pressure was obtained with a pigtail catheter and pullback was performed. All catheter e xchanges and advancements were performed over a guidewire. FINDINGS: HEMODYNAMICS: LVEDP 30 mm Hg No gradient on LV to aortic pullback. AO: 128/78 LEFT VENTRICULOGRAM: Deferred due to CKD CORONARY ANGIOGRAPHY: LM is a large caliber vessel with normal angiographic appearance. LAD is a large caliber vessel with normal angiographic appearance. Ramus is a moderate caliber bifurcating vessel with a focal 99% subtotal occlusion at the ostium of a small superior branch and a 90% focal stenossi of the inferior branch. LCx is a large caliber non-dominant vessel with normal angiographic appearance. OM1 is a large caliber vessel with normal angiographic appearance. RCA is a large caliber dominant vessel with a proximal 50% stenosis. RPDA is a moderate caliber vessel with normal angiographic appearance. INTERVENTIONAL TECHNIQUE: Due to the patient's presentation with stuttering chest pain, VT and NSTEMI with evidence of signific ant ramus disease, an intervention was planned. Heparin and Tirofiban were used for anticoagulation. Through a 6Fr EBU 3.75 guide catheter, a 0.014'' prowater wire was placed in the inferior ramus branc h. A second wire was placed in the superior branch. Next, the lesion in the ramus was angioplastied w ith a 2.5/12 mm balloon and then stented with a Resolute 2.5/15 mm ANAID. The superior branch was angio plastied with the 2.5 mm balloon at 14 michael. Finally, a kissing balloon was performed with a 3.0 mm NC balloon in the main vessel and 2.5mm balloon in the smaller superior branch. The superior branch was not stented due to less than 2mm size distally. Final angiography demonstrated excellent stent expan aisha with AMBER 3 flow in the vessel. CLOSURE: At case completion the right radial sheath was removed and a Terumo radial band was applied with 13 m l of air. COMPLICATIONS: The patient tolerated the procedure well and there were no immediate complications. AMBER Flow AMBER Flow (Pre-Intervention): AMBER-2 AMBER Flow (Post-Intervention): AMBER-3 Conclusion 1. Acute on chronic diastolic HF. LVEDP 30 mm Hg 2. Probable LV systolic dysfunction, await echo 3. Two vessel CAD 4. Successful PCI of the Ramus Intermedius vessel with a 2.5/15 ANAID Recommendations ASA 81 mg daily Prasugrel 10mg daily high dose statin therapy cardiac rehab. Signed by : Gunjan Ospina, Electronically Approved : 07/29/2019 11:49:30
[2019-07-29 12:04] LABS: CALCIUM 8.8 mg/dL (8.5-10.1); GFR 87.4
[2019-07-29 12:12] LABS: CHOLESTEROL/HDL RATIO 3.5
[2019-07-29] MEDS: ASPIRIN ENTERIC COATED 81 MG TABLET.DR. PO SCH (13:30)
[2019-07-29] MEDS ORDERED: FUROSEMIDE 40 MG/4 ML VIAL. IVP ONE (14:00)
[2019-07-29] MEDS ORDERED: FUROSEMIDE 100 MG/10 ML VIAL. IVP ONE (14:00)
[2019-07-29] MEDS ORDERED: LISINOPRIL 5 MG TABLET. PO SCH (14:00)
[2019-07-29] MEDS: PRASUGREL 10 MG TABLET. PO SCH (14:24)
--- NOTE | 2019-07-29 15:52 | NUR ---
SS following for discharge planning. SS reviewed pt chart. Pt is from home ([facility]) alone in independent living. Pt is currently requiring oxygen. PT/OT evaluated and recommended home independent. Pt transferring to room 252. SS will continue to follow for discharge planning.
[2019-07-29] MEDS: tiZANidine 4 MG TABLET. PO SCH (21:15)
[2019-07-29] MEDS: LATANOPROST 0.005% OPHTH SOLUTION 2.5ML BOTTLE. OU SCH (21:15)
[2019-07-29] MEDS: TAMSULOSIN 0.4 MG CAP.ER.24H. PO SCH (21:15)
[2019-07-29] MEDS ORDERED: LISINOPRIL 20 MG TABLET PO SCH (22:00)
[2019-07-30] VITALS (13 sets, daily range): BP systolic 118–165; BP diastolic 56–112
[2019-07-30] MEDS ORDERED: diphenhydrAMINE HCL 25 MG CAPSULE PO ONE ×2 (07:00→09:30)
[2019-07-30 07:30] LABS: BASO # 0.1 x10^3/uL (0.0-0.2); BASO % 1 % (0-3); EOS # 0.6 x10^3/uL (0.0-0.7); EOS % 7 % (0-3); HEMATOCRIT 46.4 % (39.0-53.0); HEMOGLOBIN 15.4 g/dL (13.0-17.5); LYMPH # 2.1 x10^3/uL (1.0-4.8); LYMPH % 24 % (24-48); MEAN CORPUSCULAR HEMOGLOBIN 30 pg (25-35); MEAN CORPUSCULAR HGB CONC 33 g/dL (31-37); MEAN CORPUSCULAR VOLUME 89 fL (79-100); MONO # 1.2 x10^3/uL (0.0-1.1); MONO % 13 % (0-9); NEUT # 4.9 x10^3/uL (1.8-7.7); NEUT % 55 % (31-73); PLATELET COUNT 310 x10^3/uL (140-400); RED BLOOD COUNT 5.21 x10^6/uL (4.30-5.70); RED CELL DISTRIBUTION WIDTH 14.2 % (11.5-14.5); WHITE BLOOD COUNT 8.9 x10^3/uL (4.0-11.0)
[2019-07-30 07:39] LABS: CALCIUM 8.8 mg/dL (8.5-10.1); GFR 87.4; POTASSIUM 3.5 mmol/L (3.5-5.1)
[2019-07-30] MEDS: BUDESONIDE 0.5 MG/2 ML NEBU. NEB SCH ×2 (08:15→19:24)
[2019-07-30] MEDS: ALBUTEROL SULFATE 2.5 MG/3 ML NEBU. NEB SCH ×3 (08:15→19:24)
[2019-07-30] MEDS: METOPROLOL TART IMMED RELEASE 50 MG TABLET. PO SCH (08:39)
[2019-07-30] MEDS: amLODIPine BESYLATE 10 MG TABLET PO SCH (08:39)
[2019-07-30] MEDS: MELOXICAM 7.5 MG TABLET PO SCH (08:40)
[2019-07-30] MEDS: ASPIRIN ENTERIC COATED 81 MG TABLET.DR. PO SCH (08:40)
[2019-07-30] MEDS: PRASUGREL 10 MG TABLET. PO SCH (08:40)
[2019-07-30] MEDS ORDERED: MAGNESIUM SULFATE 1GM 100 ML IV ONE (09:00)
[2019-07-30] MEDS ORDERED: POTASSIUM CHLORIDE 20 MEQ TABLET.ER. PO ONE (09:00)
[2019-07-30] MEDS ORDERED: AMIODARONE 150 MG in IV DEXTROSE 5% 100ML 100 ML IV ONE (09:00)
--- NOTE | 2019-07-30 09:16 | PDOC ---
SONNY UMANZOR [employer] 07/30/19 0916: CARDIO Progress Notes Date and Time Date of Service 07/30/2019 Time of Evaluation 0900 Subjective Subjective: No Chest Pain, No shortness of breath, No Palpitations Vitals Vitals Vital Signs Date Time Temp Pulse Resp B/P (MAP) Pulse Ox O2 Delivery O2 Flow Rate FiO2 07/30/19 08:39 82 165/86 07/30/19 08:25 98 Room Air 07/30/19 07:00 98.1 18 98.1 07/29/19 19:07 2.0 Weight Weight [ ] Input and Output Intake and Output Intake and Output 07/30/19 07:00 Intake Total 1260 ml Output Total 1751 ml Balance -491 ml Intake Oral 1260 ml Output Urine Total 1751 ml # Voids 1 Laboratory Labs Laboratory Tests Test 07/29/19 11:28 07/29/19 12:49 07/29/19 18:03 07/29/19 21:23 Sodium Level 141 mmol/L (136-145) Potassium Level 4.0 mmol/L (3.5-5.1) Chloride Level 105 mmol/L (98-107) Carbon Dioxide Level 27 mmol/L (21-32) Anion Gap 9 (6-14) Blood Urea Nitrogen 13 mg/dL (8-26) Creatinine 1.0 mg/dL (0.7-1.3) Estimated GFR (Cockcroft-Gault) 87.4 Glucose Level 112 mg/dL (70-99) Calcium Level 8.8 mg/dL (8.5-10.1) Magnesium Level 1.8 mg/dL (1.8-2.4) Triglycerides Level 78 mg/dL (0-150) Cholesterol Level 176 mg/dL (0-200) LDL Cholesterol, Calculated 109 mg/dL (0-100) VLDL Cholesterol, Calculated 16 mg/dL (0-40) Non-HDL Cholesterol Calculated 125 mg/dL (0-129) HDL Cholesterol 51 mg/dL (40-60) Cholesterol/HDL Ratio 3.5 Thyroid Stimulating Hormone (TSH) 1.988 uIU/mL (0.358-3.74) Glucose (Fingerstick) 105 mg/dL (70-99) 131 mg/dL (70-99) 103 mg/dL (70-99) Test 07/30/19 06:20 07/30/19 07:14 White Blood Count 8.9 x10^3/uL (4.0-11.0) Red Blood Count 5.21 x10^6/uL (4.30-5.70) Hemoglobin 15.4 g/dL (13.0-17.5) Hematocrit 46.4 % (39.0-53.0) Mean Corpuscular Volume 89 fL (79-100) Mean Corpuscular Hemoglobin 30 pg (25-35) Mean Corpuscular Hemoglobin Concent 33 g/dL (31-37) Red Cell Distribution Width 14.2 % (11.5-14.5) Platelet Count 310 x10^3/uL (140-400) Neutrophils (%) (Auto) 55 % (31-73) Lymphocytes (%) (Auto) 24 % (24-48) Monocytes (%) (Auto) 13 % (0-9) Eosinophils (%) (Auto) 7 % (0-3) Basophils (%) (Auto) 1 % (0-3) Neutrophils # (Auto) 4.9 x10^3/uL (1.8-7.7) Lymphocytes # (Auto) 2.1 x10^3/uL (1.0-4.8) Monocytes # (Auto) 1.2 x10^3/uL (0.0-1.1) Eosinophils # (Auto) 0.6 x10^3/uL (0.0-0.7) Basophils # (Auto) 0.1 x10^3/uL (0.0-0.2) Sodium Level 143 mmol/L (136-145) Potassium Level 3.5 mmol/L (3.5-5.1) Chloride Level 105 mmol/L (98-107) Carbon Dioxide Level 26 mmol/L (21-32) Anion Gap 12 (6-14) Blood Urea Nitrogen 11 mg/dL (8-26) Creatinine 1.0 mg/dL (0.7-1.3) Estimated GFR (Cockcroft-Gault) 87.4 Glucose Level 114 mg/dL (70-99) Calcium Level 8.8 mg/dL (8.5-10.1) Magnesium Level 1.9 mg/dL (1.8-2.4) Glucose (Fingerstick) 122 mg/dL (70-99) Physical Exam HEENT: Neck Supple W Full Motion Chest: Symmetric LUNGS: Other (diffuse wheeze) Heart: S1S2, RRR (SR with NSVT), other (2/6 systolic murmur ) Abdomen: Soft N/T Extremities: Other (trace bilateral LE edema ) Neurology: alert, oriented, follow commands Assessment Assessment 1. Ventricular tachycardia most probably inducted by obstructive CAD. 2. CAD; s/p PCI/ANAID to the ramus intermedius 3. Acute on chronic heart failure with probably systolic dysfunction; LVEDP 30 4. Hypertension; labile 5. CKD 6. NSVT: frequent 10-20 sec episodes 7. Facial swelling: possible angioedema Recommendations 1. Amiodarone protocol 2. Awaiting TTE and note EF and consideration for life vest 3. Mg and K replacement 4. Secondary prevention 5. DAPT with ASA, Effient 6. No ACEi/ARB for potential allergy with facial swelling 7. Lasix therapy. Pepcid and benadryl and solumedrol 8. EKG and check A1C. RBBB first degree AV block MCOT if no lifevest GUNJAN OSPINA MD 07/30/19 1646: CARDIO Progress Notes Plan Plan Patient seen and examined. Agree with above nurse practitioner note. No acute events overnight. He did have episodes of nonsustained VT requiring reinitiation of amiodarone therapy I had a long discussion today with the patient and his family regarding ICD therapy for his ventricular tachycardia. Options would be LifeVest therapy versus implantation of ICD prior to discharge. The family and him we'll discuss this and make a decision over the next 24 hours. His echocardiogram reveals ejection fraction with ischemic cardio myopathy at 45%. Continue aggressive medical therapy. We will stop his STUART inhibitor and put him on hydralazine and Imdur given his recent angioedema. 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 SONNY UMANZOR APRN Jul 30, 2019 09:16 GUJNAN OSPINA MD Jul 30, 2019 16:46
[2019-07-30] MEDS ORDERED: methylPREDNISolone SOD SUCC PF 125 MG/2 ML VIAL. IV ONE (09:30)
[2019-07-30] MEDS ORDERED: AMIODARONE 900 MG in IV DEXTROSE 5% 500 ML IV PRN (09:30)
[2019-07-30] MEDS ORDERED: FAMOTIDINE 20 MG TABLET. PO ONE (09:30)
--- NOTE | 2019-07-30 09:55 | EKG ---
[facility] [address] [place] [address] Test Date: 2019-07-30 Test Time: 10:50:09 Pat Name: CONY VILCHIS Department: Room: 252 1 Gender: M Lining Layer: CRISS : [id number] Requested By: SONNY UMANZOR Order Number: [id number] Reading MD: Jordan Loera MD Measurements Intervals [place] Rate: 59 P: 40 MN: 296 QRS: -76 QRSD: 122 T: 86 QT: 516 QTc: 516 Interpretive Statements SINUS RHYTHM PROLONGED MN INTERVAL RBBB Electronically Signed On 07-30-2019 11:50:12 CDT by Jordan Loera MD
--- NOTE | 2019-07-30 10:08 | RAD ---
CHEST AP ONLY Clinical Indication: CHF Comparison: 07/28/2019 portable chest x-ray exam. Findings: Portable upright frontal view the chest was obtained. The cardiomediastinal silhouette is enlarged in appearance although this may be in part technique related. Lungs are clear. There is no pneumothorax. No pleural effusion is appreciated. No acute bone abnormality. IMPRESSION: No acute cardiopulmonary process. Electronically signed by: De Singh MD (07/30/2019 10:05 AM) [facility]
[2019-07-30] MEDS ORDERED: METOPROLOL SUCC 24HR ER 25 MG TAB.ER.24H. PO ONE (12:00)
[2019-07-30] MEDS: ISOSORBIDE MONONITRATE ER 30 MG TAB.ER.24H PO SCH (12:40)
--- NOTE | 2019-07-30 13:16 | PDOC ---
PROGRESS NOTES Subjective Subjective Patient had several episodes of V. tach over the evening. These were asymptomatic. Patient also having swelling on left side of his face. Patient states this happens to him not to infrequently over the last several years. Patient's losartan and lisinopril have been discontinued due to suspected angioedema. Objective Objective Vital Signs Date Time Temp Pulse Resp B/P (MAP) Pulse Ox O2 Delivery O2 Flow Rate FiO2 07/30/19 12:40 82 148/86 07/30/19 12:04 Room Air 07/30/19 11:02 97.5 18 96 97.5 07/29/19 19:07 2.0 Intake and Output 07/30/19 07:00 Intake Total 1260 ml Output Total 1751 ml Balance -491 ml Intake Oral 1260 ml Output Urine Total 1751 ml # Voids 1 Physical Exam Physical Exam Left-sided facial swelling and lip edema. Abdomen: Normal bowel sounds Heart: Other Extremities: No edema (regular) General: Alert Lungs: Other (wheezing lower lobes bilaterally.) Assessment Assessment Problems Medical Problems: (1) Ventricular tachycardia Status: Acute 1. Ventricular tachycardia. 2. ST elevated myocardial infarction. 3. Coronary artery disease. 4. Hypertension. 5. Facial edema consistent with allergic response 6. Asthma with mild exacerbation Plan Plan of Care Continue cardiology eval. Await cardiac echo. Consider LifeVest versus pacer with ICD. Proceed with breathing treatments consider increased steroids if wheezing and facial swelling worsen. Comment Review of Relevant I have reviewed the following items ashkan (where applicable) has been applied. Labs Laboratory Tests Test 07/28/19 15:10 07/28/19 18:55 07/29/19 07:41 07/29/19 08:15 White Blood Count 8.6 x10^3/uL (4.0-11.0) 8.3 x10^3/uL (4.0-11.0) Red Blood Count 5.47 x10^6/uL (4.30-5.70) 5.09 x10^6/uL (4.30-5.70) Hemoglobin 16.3 g/dL (13.0-17.5) 15.1 g/dL (13.0-17.5) Hematocrit 49.1 % (39.0-53.0) 45.8 % (39.0-53.0) Mean Corpuscular Volume 90 fL (79-100) 90 fL (79-100) Mean Corpuscular Hemoglobin 30 pg (25-35) 30 pg (25-35) Mean Corpuscular Hemoglobin Concent 33 g/dL (31-37) 33 g/dL (31-37) Red Cell Distribution Width 14.5 % (11.5-14.5) 14.3 % (11.5-14.5) Platelet Count 363 x10^3/uL (140-400) 311 x10^3/uL (140-400) Neutrophils (%) (Auto) 46 % (31-73) 51 % (31-73) Lymphocytes (%) (Auto) 37 % (24-48) 27 % (24-48) Monocytes (%) (Auto) 12 % (0-9) 13 % (0-9) Eosinophils (%) (Auto) 5 % (0-3) 7 % (0-3) Basophils (%) (Auto) 1 % (0-3) 1 % (0-3) Neutrophils # (Auto) 3.9 x10^3/uL (1.8-7.7) 4.3 x10^3/uL (1.8-7.7) Lymphocytes # (Auto) 3.1 x10^3/uL (1.0-4.8) 2.3 x10^3/uL (1.0-4.8) Monocytes # (Auto) 1.0 x10^3/uL (0.0-1.1) 1.1 x10^3/uL (0.0-1.1) Eosinophils # (Auto) 0.4 x10^3/uL (0.0-0.7) 0.6 x10^3/uL (0.0-0.7) Basophils # (Auto) 0.1 x10^3/uL (0.0-0.2) 0.1 x10^3/uL (0.0-0.2) Prothrombin Time 14.3 SEC (11.7-14.0) Prothromb Time International Ratio 1.1 (0.8-1.1) Sodium Level 145 mmol/L (136-145) Potassium Level 4.1 mmol/L (3.5-5.1) Chloride Level 105 mmol/L (98-107) Carbon Dioxide Level 29 mmol/L (21-32) Anion Gap 11 (6-14) Blood Urea Nitrogen 22 mg/dL (8-26) Creatinine 1.7 mg/dL (0.7-1.3) Estimated GFR (Cockcroft-Gault) 47.4 BUN/Creatinine Ratio 13 (6-20) Glucose Level 126 mg/dL (70-99) Calcium Level 9.7 mg/dL (8.5-10.1) Magnesium Level 2.0 mg/dL (1.8-2.4) Total Bilirubin 1.8 mg/dL (0.2-1.0) Aspartate Amino Transf (AST/SGOT) 46 U/L (15-37) Alanine Aminotransferase (ALT/SGPT) 48 U/L (16-63) Alkaline Phosphatase 67 U/L (46-116) Troponin I Quantitative 1.026 ng/mL (0.000-0.055) 0.857 ng/mL (0.000-0.055) SD-Ymq-Y-Type Natriuretic Peptide 6999 pg/mL (0-449) Total Protein 8.5 g/dL (6.4-8.2) Albumin 3.5 g/dL (3.4-5.0) Albumin/Globulin Ratio 0.7 (1.0-1.7) Glucose (Fingerstick) 96 mg/dL (70-99) Test 07/29/19 11:28 07/29/19 12:49 07/29/19 18:03 07/29/19 21:23 Sodium Level 141 mmol/L (136-145) Potassium Level 4.0 mmol/L (3.5-5.1) Chloride Level 105 mmol/L (98-107) Carbon Dioxide Level 27 mmol/L (21-32) Anion Gap 9 (6-14) Blood Urea Nitrogen 13 mg/dL (8-26) Creatinine 1.0 mg/dL (0.7-1.3) Estimated GFR (Cockcroft-Gault) 87.4 Glucose Level 112 mg/dL (70-99) Calcium Level 8.8 mg/dL (8.5-10.1) Magnesium Level 1.8 mg/dL (1.8-2.4) Triglycerides Level 78 mg/dL (0-150) Cholesterol Level 176 mg/dL (0-200) LDL Cholesterol, Calculated 109 mg/dL (0-100) VLDL Cholesterol, Calculated 16 mg/dL (0-40) Non-HDL Cholesterol Calculated 125 mg/dL (0-129) HDL Cholesterol 51 mg/dL (40-60) Cholesterol/HDL Ratio 3.5 Thyroid Stimulating Hormone (TSH) 1.988 uIU/mL (0.358-3.74) Glucose (Fingerstick) 105 mg/dL (70-99) 131 mg/dL (70-99) 103 mg/dL (70-99) Test 07/30/19 06:20 07/30/19 07:14 07/30/19 11:24 White Blood Count 8.9 x10^3/uL (4.0-11.0) Red Blood Count 5.21 x10^6/uL (4.30-5.70) Hemoglobin 15.4 g/dL (13.0-17.5) Hematocrit 46.4 % (39.0-53.0) Mean Corpuscular Volume 89 fL (79-100) Mean Corpuscular Hemoglobin 30 pg (25-35) Mean Corpuscular Hemoglobin Concent 33 g/dL (31-37) Red Cell Distribution Width 14.2 % (11.5-14.5) Platelet Count 310 x10^3/uL (140-400) Neutrophils (%) (Auto) 55 % (31-73) Lymphocytes (%) (Auto) 24 % (24-48) Monocytes (%) (Auto) 13 % (0-9) Eosinophils (%) (Auto) 7 % (0-3) Basophils (%) (Auto) 1 % (0-3) Neutrophils # (Auto) 4.9 x10^3/uL (1.8-7.7) Lymphocytes # (Auto) 2.1 x10^3/uL (1.0-4.8) Monocytes # (Auto) 1.2 x10^3/uL (0.0-1.1) Eosinophils # (Auto) 0.6 x10^3/uL (0.0-0.7) Basophils # (Auto) 0.1 x10^3/uL (0.0-0.2) Sodium Level 143 mmol/L (136-145) Potassium Level 3.5 mmol/L (3.5-5.1) Chloride Level 105 mmol/L (98-107) Carbon Dioxide Level 26 mmol/L (21-32) Anion Gap 12 (6-14) Blood Urea Nitrogen 11 mg/dL (8-26) Creatinine 1.0 mg/dL (0.7-1.3) Estimated GFR (Cockcroft-Gault) 87.4 Glucose Level 114 mg/dL (70-99) Calcium Level 8.8 mg/dL (8.5-10.1) Magnesium Level 1.9 mg/dL (1.8-2.4) Glucose (Fingerstick) 122 mg/dL (70-99) 109 mg/dL (70-99) Laboratory Tests Test 07/29/19 18:03 07/29/19 21:23 07/30/19 06:20 07/30/19 07:14 Glucose (Fingerstick) 131 mg/dL (70-99) 103 mg/dL (70-99) 122 mg/dL (70-99) White Blood Count 8.9 x10^3/uL (4.0-11.0) Red Blood Count 5.21 x10^6/uL (4.30-5.70) Hemoglobin 15.4 g/dL (13.0-17.5) Hematocrit 46.4 % (39.0-53.0) Mean Corpuscular Volume 89 fL (79-100) Mean Corpuscular Hemoglobin 30 pg (25-35) Mean Corpuscular Hemoglobin Concent 33 g/dL (31-37) Red Cell Distribution Width 14.2 % (11.5-14.5) Platelet Count 310 x10^3/uL (140-400) Neutrophils (%) (Auto) 55 % (31-73) Lymphocytes (%) (Auto) 24 % (24-48) Monocytes (%) (Auto) 13 % (0-9) Eosinophils (%) (Auto) 7 % (0-3) Basophils (%) (Auto) 1 % (0-3) Neutrophils # (Auto) 4.9 x10^3/uL (1.8-7.7) Lymphocytes # (Auto) 2.1 x10^3/uL (1.0-4.8) Monocytes # (Auto) 1.2 x10^3/uL (0.0-1.1) Eosinophils # (Auto) 0.6 x10^3/uL (0.0-0.7) Basophils # (Auto) 0.1 x10^3/uL (0.0-0.2) Sodium Level 143 mmol/L (136-145) Potassium Level 3.5 mmol/L (3.5-5.1) Chloride Level 105 mmol/L (98-107) Carbon Dioxide Level 26 mmol/L (21-32) Anion Gap 12 (6-14) Blood Urea Nitrogen 11 mg/dL (8-26) Creatinine 1.0 mg/dL (0.7-1.3) Estimated GFR (Cockcroft-Gault) 87.4 Glucose Level 114 mg/dL (70-99) Calcium Level 8.8 mg/dL (8.5-10.1) Magnesium Level 1.9 mg/dL (1.8-2.4) Test 07/30/19 11:24 Glucose (Fingerstick) 109 mg/dL (70-99) Medications Current Medications Amiodarone HCl 150 mg/Dextrose 103 ml @ 618 mls/hr 1X ONCE IV Last administered on 07/28/19at 15:40; Start 07/28/19 at 15:15; Stop 07/28/19 at 1 5:24; Status DC Amiodarone HCl 900 mg/Dextrose 518 ml @ 33 mls/hr CONT PRN IV SEE I/O RECORD Last administered on 07/28/19at 15:39; Start 07/28/19 at 15:15; Stop 07/28/19 at 15:40; Status DC Amiodarone HCl (Cordarone) 150 mg STK-MED ONCE .ROUTE ; Start 07/28/19 at 15:16; Stop 07/28/19 at 15:16; Status DC Etomidate (Amidate) 20 mg STK-MED ONCE IV ; Start 07/28/19 at 15:20; Stop 07/28/19 at 15:20; Status DC Propofol 0 ml @ As Directed STK-MED ONCE IV ; Start 07/28/19 at 15:21; Stop 07/28/19 at 15:21; Status DC Aspirin (Children'S Aspirin) 324 mg 1X ONCE PO Last administered on 07/28/19at 15:51; Start 07/28/19 at 15:45; Stop 07/28/19 at 15:46; Status DC Heparin Sodium (Porcine) (Heparin Sodium) 4,000 unit 1X ONCE IV Last administered on 07/28/19at 15:58; Start 07/28/19 at 16:00; Stop 07/28/19 at 16:01; Status DC Heparin Sodium (Porcine) (Heparin Sodium) 10,000 unit STK-MED ONCE .ROUTE ; Start 07/28/19 at 15:52; Stop 07/28/19 at 15:53; Status DC Iodixanol (Visipaque 320) 100 ml STK-MED ONCE .ROUTE ; Start 07/28/19 at 16:02; Stop 07/28/19 at 16:03; Status DC Fentanyl Citrate (Fentanyl 2ml Vial) 100 mcg STK-MED ONCE .ROUTE ; Start 07/28/19 at 16:02; Stop 07/28/19 at 16:03; Status DC Midazolam HCl (Versed) 2 mg STK-MED ONCE .ROUTE ; Start 07/28/19 at 16:03; Stop 07/28/19 at 16:03; Status DC Heparin Sodium (Porcine) (Heparin Sodium) 10,000 unit STK-MED ONCE .ROUTE ; Start 07/28/19 at 16:03; Stop 07/28/19 at 16:03; Status DC Lidocaine HCl (Xylocaine-Mpf 1% 2ml Vial) 2 ml STK-MED ONCE .ROUTE ; Start 07/28/19 at 16:03; Stop 07/28/19 at 16:03; Status DC Verapamil HCl (Verapamil) 5 mg STK-MED ONCE .ROUTE ; Start 07/28/19 at 16:03; Stop 07/28/19 at 16:03; Status DC Heparin Sodium/ Sodium Chloride 1,000 ml @ As Directed STK-MED ONCE .ROUTE ; Start 07/28/19 at 16:03; Stop 07/28/19 at 16:03; Status DC Nitroglycerin (Nitroglycerin) 200 mcg STK-MED ONCE .ROUTE ; Start 07/28/19 at 16:03; Stop 07/28/19 at 16:04; Status DC Iodixanol (Visipaque 320) 100 ml STK-MED ONCE .ROUTE ; Start 07/28/19 at 16:43; Stop 07/28/19 at 16:43; Status DC Tirofiban/Sodium Chloride 250 ml @ As Directed STK-MED ONCE IV ; Start 07/28/19 at 16:43; Stop 07/28/19 at 16:43; Status DC Nitroglycerin (Nitroglycerin) 200 mcg 1X ONCE IART Last administered on 07/28/19 17:30; Start 07/28/19 at 17:00; Stop 07/28/19 at 17:02; Status DC Verapamil HCl (Verapamil) 2.5 mg 1X ONCE IART Last administered on 07/28/19at 17:31; Start 07/28/19 at 17:00; Stop 07/28/19 at 17:02; Status DC Heparin Sodium (Porcine) (Heparin Sodium) 2,500 unit 1X ONCE IART Last administered on 07/28/19at 17:38; Start 07/28/19 at 17:00; Stop 07/28/19 at 1 7:02; Status DC Heparin Sodium/ Sodium Chloride (HEPARIN for ARTERIAL LINE FLUSH) 1,000 unit 1X ONCE IART Last administered on 07/28/19 17:29; Start 07/28/19 at 17:00; Stop 07/28/19 at 17:02; Status DC Heparin Sodium/ Sodium Chloride (HEPARIN for ARTERIAL LINE FLUSH) 1,000 unit 1X ONCE IART Last administered on 07/28/19 17:30; Start 07/28/19 at 17:00; Stop 07/28/19 at 17:02; Status DC Midazolam HCl (Versed) 2 mg 1X ONCE IV Last administered on 07/28/19at 17:32; Start 07/28/19 at 17:00; Stop 07/28/19 at 17:02; Status DC Fentanyl Citrate (Fentanyl 2ml Vial) 100 mcg 1X ONCE IV Last administered on 07/28/19at 17:32; Start 07/28/19 at 17:00; Stop 07/28/19 at 17:02; Status DC Iodixanol (Visipaque 320) 100 ml 1X ONCE IART Last administered on 07/28/19 17:29; Start 07/28/19 at 17:00; Stop 07/28/19 at 17:02; Status DC Heparin Sodium (Porcine) (Heparin Sodium) 2,000 unit 1X ONCE IV Last administered on 07/28/19at 17:39; Start 07/28/19 at 17:00; Stop 07/28/19 at 17:02; Status DC Tirofiban/Sodium Chloride 250 ml @ 9.243 mls/ hr CONT PRN IV PER PROTOCOL Last administered on 07/28/19at 17:34; Start 07/28/19 at 17:00; Stop 07/29/19 at 10:59; Status DC Lidocaine HCl (Xylocaine-Mpf 1% 2ml Vial) 2 ml 1X ONCE INJ Last administered on 07/28/19at 17:29; Start 07/28/19 at 17:00; Stop 07/28/19 at 17:02; Status DC Nitroglycerin (Nitroglycerin) 200 mcg 1X ONCE ICAR Last administered on 07/28/19at 17:30; Start 07/28/19 at 17:00; Stop 07/28/19 at 17:02; Status DC Info (CONTRAST GIVEN -- Rx MONITORING) 1 each PRN DAILY PRN MC SEE COMMENTS; Start 07/28/19 at 17:00; Stop 07/30/19 at 16:59 Prasugrel (Effient) 10 mg STK-MED ONCE .ROUTE ; Start 07/28/19 at 17:11; Stop 07/28/19 at 17:11; Status DC Latanoprost (Xalatan) 1 drop QHS OU Last administered on 07/29/19at 21:15; Start 07/29/19 at 21:00 Non-Formulary Medication (Fluticasone/ Salmeterol (Advair 250-50 Diskus)) 1 puff PRN PRN IH SHORTNESS OF BREATH; Start 07/29/19 at 06:45; Status UNV Amlodipine Besylate (Norvasc) 10 mg DAILY PO Last administered on 07/30/19at 08:39; Start 07/29/19 at 09:00 Meloxicam (Mobic) 7.5 mg DAILY PO Last administered on 07/30/19at 08:40; Start 07/29/19 at 09:00 Metoprolol Tartrate (Lopressor) 50 mg DAILY08 PO Last administered on 07/30/19at 08:39; Start 07/29/19 at 08:00; Stop 07/30/19 at 09:13; Status DC Tamsulosin HCl (Flomax) 0.4 mg HS PO Last administered on 07/29/19at 21:15; Start 07/29/19 at 21:00 Tizanidine HCl (Zanaflex) 4 mg QHS PO Last administered on 07/29/19at 21:15; Start 07/29/19 at 21:00 Albuterol Sulfate (Ventolin Neb Soln) 2 mg PRN Q6HRS PRN INH SHORTNESS OF BREATH; Start 07/29/19 at 07:00 Albuterol Sulfate (Ventolin Neb Soln) 2.5 mg Q6HRS NEB Last administered on 07/30/19at 12:03; Start 07/29/19 at 07:30 Budesonide (Pulmicort) 0.5 mg RTBID NEB Last administered on 07/30/19at 08:15; Start 07/29/19 at 08:00 Prasugrel (Effient) 60 mg 1X PO ; Start 07/29/19 at 08:45; Stop 07/29/19 at 09:43; Status DC Prasugrel (Effient) 60 mg 1X PO ; Start 07/29/19 at 09:45; Status Cancel Prasugrel (Effient) 60 mg 1X ONCE PO Last administered on 07/28/19at 15:36; Start 07/29/19 at 10:15; Stop 07/29/19 at 10:16; Status DC Aspirin (Ecotrin) 81 mg DAILYWBKFT PO Last administered on 07/30/19at 08:40; Start 07/29/19 at 13:30 Furosemide (Lasix) 40 mg 1X ONCE IVP ; Start 07/29/19 at 14:00; Stop 07/29/19 at 14:01; Status Cancel Lisinopril (Prinivil) 5 mg DAILY PO Last administered on 07/29/19at 14:24; Start 07/29/19 at 14:00; Stop 07/29/19 at 21:34; Status DC Prasugrel (Effient) 10 mg DAILYWBKFT PO Last administered on 07/30/19at 08:40; Start 07/29/19 at 13:45 Furosemide (Lasix) 80 mg 1X ONCE IVP Last administered on 07/29/19at 14:23; Start 07/29/19 at 14:00; Stop 07/29/19 at 14:01; Status DC Lisinopril (Prinivil) 20 mg DAILY PO Last administered on 07/29/19at 22:01; Start 07/29/19 at 22:00; Stop 07/30/19 at 06:46; Status DC Diphenhydramine HCl (Benadryl) 50 mg 1X ONCE PO Last administered on 07/30/19at 07:10; Start 07/30/19 at 07:00; Stop 07/30/19 at 07:01; Status DC Amiodarone HCl 150 mg/Dextrose 103 ml @ 618 mls/hr 1X ONCE IV Last administered on 07/30/19at 09:15; Start 07/30/19 at 09:00; Stop 07/30/19 at 09:09; Status DC Magnesium Sulfate/ Dextrose 100 ml @ 100 mls/hr 1X ONCE IV Last administered on 07/30/19at 09:15; Start 07/30/19 at 09:00; Stop 07/30/19 at 09:59; Status DC Potassium Chloride (Klor-Con) 40 meq 1X ONCE PO Last administered on 07/30/19at 09:16; Start 07/30/19 at 09:00; Stop 07/30/19 at 09:01; Status DC Metoprolol Tartrate (Lopressor) 50 mg BID PO ; Start 07/30/19 at 21:00; Stop 07/30/19 at 11:54; Status DC Diphenhydramine HCl (Benadryl) 25 mg 1X ONCE PO ; Start 07/30/19 at 09:30; Stop 07/30/19 at 09:31; Status DC Famotidine (Pepcid) 20 mg 1X ONCE PO Last administered on 07/30/19at 10:09; Start 07/30/19 at 09:30; Stop 07/30/19 at 09:31; Status DC Methylprednisolone Sodium Succinate (SOLU-Medrol 125MG VIAL) 125 mg 1X ONCE IV Last administered on 07/30/19at 10:09; Start 07/30/19 at 09:30; Stop 07/30/19 at 09:31; Status DC Amiodarone HCl 900 mg/Dextrose 518 ml @ 0 mls/hr CONT PRN IV SEE I/O RECORD; Start 07/30/19 at 09:30; Stop 07/31/19 at 09:29 Hydralazine HCl (Apresoline) 25 mg TID PO ; Start 07/30/19 at 14:00 Isosorbide Mononitrate (Imdur) 30 mg DAILY PO Last administered on 07/30/19at 12:40; Start 07/30/19 at 12:00 Metoprolol Succinate (Toprol Xl) 50 mg DAILY PO ; Start 07/31/19 at 09:00 Metoprolol Succinate (Toprol Xl) 25 mg 1X ONCE PO Last administered on 07/30/19at 12:40; Start 07/30/19 at 12:00; Stop 07/30/19 at 12:01; Status DC Amiodarone HCl (Cordarone) 400 mg BID PO ; Start 07/30/19 at 21:00 Active Scripts Active Epipen 2-Martin (Epinephrine) 0.3 Mg/0.3 Ml Auto.injct 0.3 Mg IJ 1X Proair Hfa Inhaler (Albuterol Sulfate) 8.5 Gm Hfa.aer.ad 2 Puff INH PRN Q6HRS PRN Epinephrine 0.3 Mg/0.3 Ml Auto.injct 0.3 Mg IJ PRN PRN Reported Vitamin D (Cholecalciferol (Vitamin D3)) 50,000 Unit Capsule 1 Cap PO WEEKLY 28 Days Metoprolol Tartrate 50 Mg Tablet 1 Tab PO DAILY08 Meloxicam 7.5 Mg Tablet 1 Tab PO DAILY 30 Days Zanaflex (Tizanidine Hcl) 4 Mg Tablet 1 Tab PO QHS 30 Days Flomax (Tamsulosin Hcl) 0.4 Mg Cap.er.24h 1 Cap PO HS Atenolol 50 Mg Tablet 50 Mg PO DAILY Amlodipine Besylate 10 Mg Tablet 1 Tab PO DAILY Lumigan (Bimatoprost) 2.5 Ml Drops 1 Drop EACHEYE QHS Advair 250-50 Diskus (Fluticasone/Salmeterol) 1 Each Disk.w.dev 1 Puff IH PRN PRN Vitals/I & O Vital Sign - Last 24 Hours 07/29/19 07/29/19 07/29/19 07/29/19 13:30 13:47 14:00 14:24 Temp 98.7 98.7 98.7 98.7 Pulse 73 73 73 B/P (MAP) 168/95 (119) 158/95 (116) 161/97 Pulse Ox 95 93 93 O2 Delivery Nasal Cannula Room Air Nasal Cannula O2 Flow Rate 2.0 2.0 07/29/19 07/29/19 07/29/19 07/29/19 15:30 16:00 16:30 19:07 Temp 98.7 98.7 98.7 98.7 Pulse 73 73 Resp 20 B/P (MAP) 144/72 (96) 144/72 (96) Pulse Ox 93 93 O2 Delivery Nasal Cannula Nasal Cannula Nasal Cannula Nasal Cannula O2 Flow Rate 2.0 2.0 2.0 07/29/19 07/29/19 07/29/19 07/29/19 19:37 19:50 22:01 22:55 Temp 98.1 97.9 98.1 97.9 Pulse 64 64 67 Resp 20 18 B/P (MAP) 191/96 (127) 191/96 142/77 (98) Pulse Ox 93 95 97 O2 Delivery Room Air Room Air Room Air 07/30/19 07/30/19 07/30/19 07/30/19 02:45 07:00 08:00 08:17 Temp 98.2 98.1 98.2 98.1 Pulse 89 82 Resp 20 18 B/P (MAP) 150/66 (94) 165/86 (112) Pulse Ox 95 96 98 O2 Delivery Room Air Room Air Room Air Room Air 07/30/19 07/30/19 07/30/19 07/30/19 08:25 08:39 08:39 09:15 Pulse 82 82 82 B/P (MAP) 165/86 165/86 165/86 Pulse Ox 98 O2 Delivery Room Air 07/30/19 07/30/19 07/30/19 07/30/19 11:02 12:04 12:40 12:40 Temp 97.5 97.5 Pulse 82 82 82 Resp 18 B/P (MAP) 148/ 148/86 148/86 Pulse Ox 96 O2 Delivery Room Air Room Air Intake and Output 07/29/19 07/29/19 07/30/19 15:00 23:00 07:00 Intake Total 900 ml 260 ml 100 ml Output Total 1200 ml 351 ml 200 ml Balance -300 ml -91 ml -100 ml DANNY COLLADO MD Jul 30, 2019 13:16
[2019-07-30] MEDS: hydrALAZINE 25 MG TABLET PO SCH ×2 (15:15→20:55)
--- NOTE | 2019-07-30 16:19 | CARD ---
MR#: [id number] Date of Study: 07/30/2019 Ordering Physician: LIU BOB, Referring Physician: LIU BOB, Tech: Johanny Smyth [facility] APPROVED REPORT EXAM: Two-dimensional and M-mode echocardiogram with Doppler and color Doppler. Other Information Quality : AverageHR: 56bpm Rhythm : BradycardiaTechnically limited study due to body habitus. INDICATION CAD 2D DIMENSIONS RVDd3.1 (2.9-3.5cm)Left Atrium(2D)4.3 (1.6-4.0cm) IVSd1.9 (0.7-1.1cm)Aortic Root(2D)3.7 (2.0-3.7cm) LVDd5.1 (3.9-5.9cm)LVOT Diameter2.3 (1.8-2.4cm) PWd1.5 (0.7-1.1cm)LVDs3.9 (2.5-4.0cm) FS (%) 20.2 %SV50.3 ml LVEF(%)43.0 (>50%) M-Mode DIMENSIONS Left Atrium(MM)4.70 (2.5-4.0cm)Aortic Root3.38 (2.2-3.7cm) Aortic Valve AoV Peak [place].337.5cm/sAoV VTI67.2cm AO Peak GR.45.6mmHgLVOT VTI 26.72cm AO Mean GR.17mmHgAVA (VTI)1.70cm2 AI P 1/2 [id number] Mitral Valve MV E Nyttlorc37.9cm/sMV DECEL [id number] MV A Uhnsdpgz23.1cm/sE/A Ratio0.9 MV A [id number] TDI Lateral E' P. V7.47cm/sMedial E' P. V7.21cm/s E/Lateral E'8.8E/Medial E'9.1 LEFT VENTRICLE The left ventricle is normal size. There is moderate to severe concentric left ventricular hypertroph y. The systolic function is mildly impaired. The Ejection Fraction is 40-45%. There is mild to modera te global hypokinesis. Transmitral Doppler flow pattern is abnormal. RIGHT VENTRICLE The right ventricle is normal size. There is normal right ventricular wall thickness. The right ventr icular systolic function is normal. ATRIA The left atrium is mildly dilated. The right atrium size is normal. The interatrial septum is intact with no evidence for an atrial septal defect or patent foramen ovale as noted on 2-D or Doppler imagi ng. AORTIC VALVE The aortic valve is probably trileaflet. The aortic valve is moderately calcified. Doppler and Color Flow revealed trace to mild aortic regurgitation. There is mild to moderate valvular aortic stenosis. Calculated aortic valve area is 1.6 cm2 with maximum pressure gradient of 45 mmHg and mean pressure gradient of 17 mmHg. There is no aortic valvular vegetation. MITRAL VALVE The mitral valve is thickened but opens well. There is no evidence of mitral valve prolapse. There is no mitral valve stenosis. Doppler and Color-flow revealed trace mitral regurgitation. TRICUSPID VALVE The tricuspid valve is normal in structure and function. Doppler and Color Flow revealed no tricuspid valve regurgitation noted. There is no tricuspid valve prolapse or vegetation. There is no tricuspid valve stenosis. PULMONIC VALVE The pulmonic valve is not well visualized. GREAT VESSELS The aortic root is normal in size. The ascending aorta is normal in size. The IVC was not visualized. PERICARDIAL EFFUSION There is no evidence of significant pericardial effusion. Critical Notification Critical Value: No <Conclusion> The systolic function is mildly impaired. The Ejection Fraction is 40-45%. There is mild to moderate global hypokinesis. There is mild to moderate valvular aortic stenosis. Calculated aortic valve area is 1.6 cm2 with maxi mum pressure gradient of 45 mmHg and mean pressure gradient of 17 mmHg. Signed by : Jordan Loera, Electronically Approved : 07/30/2019 16:18:45
[2019-07-30] MEDS: AMIODARONE HCL 200 MG TABLET. PO SCH (20:54)
[2019-07-30] MEDS: TAMSULOSIN 0.4 MG CAP.ER.24H. PO SCH (20:55)
[2019-07-30] MEDS: LATANOPROST 0.005% OPHTH SOLUTION 2.5ML BOTTLE. OU SCH (20:55)
[2019-07-30] MEDS: tiZANidine 4 MG TABLET. PO SCH (20:55)
[2019-07-30] MEDS ORDERED: METOPROLOL TART IMMED RELEASE 50 MG TABLET. PO SCH (21:00)
--- NOTE | 2019-07-31 06:45 | NUR ---
REPORTED TO DR BERNARDO THAT PT WAS IN AND OUT OF VTACH OVER 10 MIN RATE 190.. 157/87 PT SOB PLACED ON 2 LITERS, EKG WAS DONE. ORDERS TO RESTART AMIODArone gtt per protocol. new iv placed in right hand #22. blood return and flushed.lcrn
[2019-07-31 07:00] VITALS: BP 157/87
[2019-07-31] MEDS ORDERED: AMIODARONE 150 MG in IV DEXTROSE 5% 100ML 100 ML IV ONE (07:45)
[2019-07-31] MEDS ORDERED: AMIODARONE 900 MG in IV DEXTROSE 5% 500 ML IV PRN (07:45)
[2019-07-31] MEDS: BUDESONIDE 0.5 MG/2 ML NEBU. NEB SCH (07:57)
[2019-07-31] MEDS: ALBUTEROL SULFATE 2.5 MG/3 ML NEBU. NEB SCH ×2 (07:57→12:08)
--- NOTE | 2019-07-31 08:00 | EKG ---
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
[2019-07-31] MEDS ORDERED: MAGNESIUM CITRATE 296 ML SOLUTION. PO ONE (09:00)
[2019-07-31] MEDS ORDERED: METOPROLOL SUCC 24HR ER 50 MG TAB.ER.24H. PO SCH (09:00)
[2019-07-31] MEDS: AMIODARONE HCL 200 MG TABLET. PO SCH (09:00)
[2019-07-31] MEDS: amLODIPine BESYLATE 10 MG TABLET PO SCH (09:09)
[2019-07-31] MEDS: ASPIRIN ENTERIC COATED 81 MG TABLET.DR. PO SCH (09:09)
[2019-07-31] MEDS: PRASUGREL 10 MG TABLET. PO SCH (09:09)
[2019-07-31] MEDS: ISOSORBIDE MONONITRATE ER 30 MG TAB.ER.24H PO SCH (09:09)
[2019-07-31] MEDS: MELOXICAM 7.5 MG TABLET PO SCH (09:09)
[2019-07-31] MEDS: hydrALAZINE 25 MG TABLET PO SCH (09:10)
--- NOTE | 2019-07-31 10:38 | PDOC ---
LIU BOB NISS[employer] SAL[employer] CONSULTANT 07/31/19 1038: CARDIO Progress Notes Date and Time Date of Service 07/31/19 Time of Evaluation 1040 Subjective Subjective: No Chest Pain, No shortness of breath, No Palpitations, No Dizziness Vitals Vitals Vital Signs Date Time Temp Pulse Resp B/P (MAP) Pulse Ox O2 Delivery O2 Flow Rate FiO2 07/31/19 09:10 82 157/87 07/31/19 08:00 99 Nasal Cannula 2.0 07/31/19 07:00 97.6 20 97.6 Weight Weight [ ] Input and Output Intake and Output Intake and Output 07/31/19 07:00 Intake Total 1680 ml Output Total 1270 ml Balance 410 ml Intake Oral 1680 ml Output Urine Total 1270 ml # Bowel Movements 1 Laboratory Labs Laboratory Tests Test 07/30/19 11:24 07/30/19 17:03 07/30/19 21:08 07/31/19 07:56 Glucose (Fingerstick) 109 mg/dL (70-99) 154 mg/dL (70-99) 195 mg/dL (70-99) 129 mg/dL (70-99) Physical Exam HEENT: Neck Supple W Full Motion Chest: Symmetric LUNGS: Other (faint expiratroy wheeze) Heart: S1S2, RRR (SR; having frequents episode of VT), other (2/6 systolic murmur ) Abdomen: Soft N/T Extremities: Other (trace bilateral LE edema ) Neurology: alert, oriented, follow commands Assessment Assessment 1. Ventricular tachycardia; continues to have episodes of VT despite Amiodarone therapy. QTc 520. 2. CAD; s/p PCI/ANAID 3. Acute on chronic systolic heart failure 4. ICM: LVEF 40-45% 4. Hypertension 5. CKD 6. Angioedema; ACEi discontinued Recommendations BMP, Mg Start Mexilitine given recurrent, sustained VT Will need AICD in primary prevention of SCD. Will transfer to [facility] as patient is [id number] here with [employer] Secondary prevention; DAPT with ASA, Effient Continue BB, Imdur, hydralazine. No ACEi/ARB with angioedema. EP evaluation Supportive care GUNJAN OSPINA MD 07/31/19 1535: CARDIO Progress Notes Plan Plan Patient seen and examined. Agree with above nurse practitioner note. Overnight he continues to have episodes of nonsustained VT versus SVT with aberrancy Denies any chest pain or dyspnea. His angioedema is improved. As noted above we'll plan on transfer due to insurance issues. Discussed his case with outside hospital hospitalist and cardiology nurse practitioner. Discussed with family as well. LIU BOB APRN Jul 31, 2019 10:38 GUNJAN OSPINA MD Jul 31, 2019 17:55
[2019-07-31 11:00] VITALS: BP 144/80
[2019-07-31] MEDS ORDERED: MEXILETINE HCL 200 MG CAPSULE PO SCH (12:00)
[2019-07-31 12:12] LABS: CALCIUM 8.8 mg/dL (8.5-10.1); CREATININE 1.3 mg/dL (0.7-1.3); GFR 64.6; POTASSIUM 3.8 mmol/L (3.5-5.1)
[2019-07-31] MEDS ORDERED: POTASSIUM CHLORIDE 20 MEQ TABLET.ER. PO ONE (12:45)
--- NOTE | 2019-07-31 12:51 | NUR ---
SS following up with discharge planning. SS received request for transfer to [facility]. SS contacted [facility] transfer line, , and made request. SS phoned and faxed records to [facility] per request, fax# [phone]. SS will await acceptance decision and will proceed accordingly. Packet, transfer form, and ambulance form on the chart.
--- NOTE | 2019-07-31 14:57 | NUR ---
SS following up with discharge planning. Pt accepted at [facility] ([facility]). Pt will discharge today and go to [facility] ([facility]) to room #578 at 1600 via [facility] transport, . [facility] ambulance reported that they had no availability until after 1800. RN notified to call report into [facility], at [phone]. Packet, [facility] form, and transfer form on the chart.
[2019-07-31 15:00] VITALS: BP 125/69
[2019-07-31 15:58] VITALS: BP 125/69
--- NOTE | 2019-07-31 16:33 | NUR ---
Discharge Note: WILBER VILCHIS [facility] Discharge instructions and discharge home medications attempted to be reviewed with Other facility, awaiting return phone call; copy sent with [facility].
--- NOTE | 2019-08-01 00:48 | DS ---
DATE OF DISCHARGE: 07/31/2019 ADMITTING DIAGNOSIS: ST elevated myocardial infarction. SECONDARY DIAGNOSES: 1. Ventricular tachycardia. 2. Coronary artery disease, status post stenting. 3. Hypertension. 4. Asthma. 5. Morbid obesity. 6. Hyperlipidemia. 7. Inflammatory arthritis. 8. Vitamin D deficiency. 9. Angioedema due to STUART inhibitor. HISTORY OF PRESENT ILLNESS AND HOSPITAL COURSE: This patient is a 79-year-old -[place] male who came to the Emergency Room complaining of rapid heart rate, was found to be in V-tach, was sedated and cardioverted in the Emergency Room, at which time he was found to have an ST elevated myocardial infarction. He was taken directly to [facility] where he had a stent placed to the inferior ramus. Despite this, the patient continued to have episodes of V-tach, although these were asymptomatic. He was treated with IV amiodarone and then subsequently was switched to mexiletine. The patient stabilized and further evaluation was held due to the patient being out of network and he was transferred to an in-network hospital at [facility]. Echocardiogram confirmed ejection fraction of 45% with some global hypokinesis noted as well as moderate aortic stenosis. DISCHARGE MEDICATIONS: The patient was discharged on the following medications: ProAir inhaler 2 puffs q.6h. p.r.n., amlodipine 10 mg daily, EpiPen p.r.n., Advair 250/50 one puff b.i.d., meloxicam 75 mg daily, metoprolol 50 mg b.i.d., tamsulosin 0.4 at bedtime, tizanidine 4 mg at bedtime, mexiletine was given in the hospital and followup antiarrhythmics will be managed by Cardiology at [facility]. DANNY COLLADO MD DR: DESIRAE/lani JOB#: [id number] / [id number]
[2019-08-01] MEDS ORDERED: AMIODARONE HCL 200 MG TABLET. PO SCH (09:00)
== END 2019-07-31 16:05 | disposition short-term general hospital (02) | DRG 246 ==
LOC: ER 15:00 → 1 WEST ICU 16:17 → 2 SOUTH 07-29 15:58
PROVIDERS: ADMIT Family Medicine; ATTEND Family Medicine
PROC: 027034Z Dilation of Coronary Artery, One Artery with Drug-eluting Intraluminal Device, Percutaneous Approach (ICD-10-PCS; principal; 2019-07-28)
PROC: 4A023N7 Measurement of Cardiac Sampling and Pressure, Left Heart, Percutaneous Approach (ICD-10-PCS; 2019-07-28)
PROC: B211YZZ Fluoroscopy of Multiple Coronary Arteries using Other Contrast (ICD-10-PCS; 2019-07-28)
PROC: B215YZZ Fluoroscopy of Left Heart using Other Contrast (ICD-10-PCS; 2019-07-28)
PROC: 02713ZZ Dilation of Coronary Artery, Two Arteries, Percutaneous Approach (ICD-10-PCS; 2019-07-28)
DX: I21.3 ST elevation (STEMI) myocardial infarction of unspecified site (principal); I50.43 Acute on chronic combined systolic (congestive) and diastolic (congestive) heart failure; I47.2 Ventricular tachycardia; I13.0 Hypertensive heart and chronic kidney disease with heart failure and stage 1 through stage 4 chronic kidney disease, or unspecified chronic kidney disease; J45.901 Unspecified asthma with (acute) exacerbation; T78.3XXA Angioneurotic edema, initial encounter; T46.4X5A Adverse effect of angiotensin-converting-enzyme inhibitors, initial encounter; E66.01 Morbid (severe) obesity due to excess calories; E55.9 Vitamin D deficiency, unspecified; N18.9 Chronic kidney disease, unspecified; I35.0 Nonrheumatic aortic (valve) stenosis; M06.4 Inflammatory polyarthropathy; H40.9 Unspecified glaucoma; I25.10 Atherosclerotic heart disease of native coronary artery without angina pectoris; E78.5 Hyperlipidemia, unspecified; Z68.32 Body mass index [BMI] 32.0-32.9, adult; Z95.5 Presence of coronary angioplasty implant and graft; Y92.89 Other specified places as the place of occurrence of the external cause
CPT/HCPCS: 36415; 71045; 80048; 80053; 80061; 82962; 83036; 83735; 83880; 84443; 84484; 85025; 85610; 92928; 93005; 93306; 93458; 94640; 94760; 96365; 96375; 99152; 99153; C1725; C1769; C1874; C1887; C1892; J0282; J1644; J1940; J2250; J2930; J3010; J3475; J3490; J7613; J7626; Q0163; Q9967; 99291-25; C1713; G0378; J3246

== ENCOUNTER 2019-10-01 04:06 | Inpatient (IN) | payer MEDICARE ==
[~2019-10-01] VITALS: Ht 177.8 cm; Wt 99.1 kg
[~2019-10-01 04:06] MED LIST changes: +CHOL500050 PO; +MELO7.5T29 PO; +METO50TA6 PO; +TAMS0.4C97 PO; +TIZA4TAB8 PO
--- NOTE | 2019-10-01 05:28 | PHYS DOC ---
Past Medical History Past Medical History: Asthma, Hypertension, Other Additional Past Medical Histor: , GLAUCOMA (JUAN RAMON MILLER DO) Past Surgical History: Other Additional Past Surgical Histo: EYE SURGERY, COLONOSCOPY, cardiac stent (JUAN RAMON MILLER DO) Alcohol Use: None Drug Use: None (JUAN RAMON MILLER DO) Adult General Chief Complaint Chief Complaint: BLOODY STOOL HPI HPI Patient is a 79 year old Armenian male with history of CAD, pacemaker who pres ents with a single episode of bright red blood with bowel movement earlier this morning. Patient reports only mild abdominal pain and cramping. Reports feeling generally weak and dizzy.. No fevers chills or sweats. Patient is on the anticoagulation therapy but does not remember the name of medication or have his medication list with him. Additional history obtained from the patient's son. (JUAN RAMON MILLER DO) Review of Systems Review of Systems ROS as per HPI [] All other systems were reviewed and found to be within normal limits, except as documented in this note. (JUAN RAMON MILLER DO) Current Medications Current Medications Current Medications Medications (Trade) Dose Ordered Sig/Ken Start Time Stop Time Status Last Admin Dose Admin Ketorolac Tromethamine (Toradol 15mg Vial) 15 mg 1X ONCE 10/01/19 05:30 10/01/19 05:31 DC 10/01/19 05:32 15 MG Ondansetron HCl (Zofran) 4 mg 1X ONCE 10/01/19 05:30 10/01/19 05:31 DC 10/01/19 05:32 4 MG Sodium Chloride 1,000 ml @ 1,000 mls/hr 1X ONCE 10/01/19 05:30 10/01/19 06:29 DC 10/01/19 05:32 1,000 MLS/HR (LINDSAY KIMBROUGH MD) Allergies Allergies Allergies Coded Allergies Type Severity Reaction Last Updated Verified No Known Drug Allergies 07/23/14 No (LINDSAY KIMBROUGH MD) Physical Exam Physical Exam Constitutional: Well developed, well nourished, no acute distress, non-toxic appearance. [] HENT: Normocephalic, atraumatic, bilateral external ears normal, oropharynx moist, nose normal. [] Eyes: PERRLA, EOMI, conjunctiva normal, no discharge. [] Neck: Normal range of motion, no tenderness, supple, no stridor. [] Cardiovascular:Heart rate regular rhythm, no murmur [] Lungs & Thorax: Bilateral breath sounds clear to auscultation [] Abdomen: Bowel sounds normal, soft, no tenderness. [] rectal: Dark red blood per rectum. [] Back: No tenderness. [] Extremities: No tenderness, peripheral edema. [] Neurologic: Alert and oriented X 3, normal motor function, normal sensory function, no focal deficits noted. [] Psychologic: Affect normal, judgement normal, mood normal. [] (JUAN RAMON MILLER DO) Current Patient Data Vital Signs Vital Signs Date Time Temp Pulse Resp B/P (MAP) Pulse Ox O2 Delivery O2 Flow Rate FiO2 10/01/19 04:45 97.5 69 18 157/84 (108) 97 Room Air 97.5 (LINDSAY KIMBROUGH MD) Lab Values Laboratory Tests Test 10/01/19 05:20 White Blood Count 6.1 x10^3/uL (4.0-11.0) Red Blood Count 4.84 x10^6/uL (4.30-5.70) Hemoglobin 14.3 g/dL (13.0-17.5) Hematocrit 43.5 % (39.0-53.0) Mean Corpuscular Volume 90 fL (79-100) Mean Corpuscular Hemoglobin 30 pg (25-35) Mean Corpuscular Hemoglobin Concent 33 g/dL (31-37) Red Cell Distribution Width 14.4 % (11.5-14.5) Platelet Count 228 x10^3/uL (140-400) Neutrophils (%) (Auto) 39 % (31-73) Lymphocytes (%) (Auto) 34 % (24-48) Monocytes (%) (Auto) 11 % (0-9) H Eosinophils (%) (Auto) 15 % (0-3) H Basophils (%) (Auto) 1 % (0-3) Neutrophils # (Auto) 2.4 x10^3/uL (1.8-7.7) Lymphocytes # (Auto) 2.1 x10^3/uL (1.0-4.8) Monocytes # (Auto) 0.7 x10^3/uL (0.0-1.1) Eosinophils # (Auto) 0.9 x10^3/uL (0.0-0.7) H Basophils # (Auto) 0.1 x10^3/uL (0.0-0.2) Prothrombin Time 13.6 SEC (11.7-14.0) Prothrombin Time INR 1.1 (0.8-1.1) Laboratory Tests 10/01/19 05:20 (LINDSAY KIMBROUGH MD) Lab Values Laboratory Tests Test 10/01/19 05:20 White Blood Count 6.1 x10^3/uL (4.0-11.0) Red Blood Count 4.84 x10^6/uL (4.30-5.70) Hemoglobin 14.3 g/dL (13.0-17.5) Hematocrit 43.5 % (39.0-53.0) Mean Corpuscular Volume 90 fL (79-100) Mean Corpuscular Hemoglobin 30 pg (25-35) Mean Corpuscular Hemoglobin Concent 33 g/dL (31-37) Red Cell Distribution Width 14.4 % (11.5-14.5) Platelet Count 228 x10^3/uL (140-400) Neutrophils (%) (Auto) 39 % (31-73) Lymphocytes (%) (Auto) 34 % (24-48) Monocytes (%) (Auto) 11 % (0-9) H Eosinophils (%) (Auto) 15 % (0-3) H Basophils (%) (Auto) 1 % (0-3) Neutrophils # (Auto) 2.4 x10^3/uL (1.8-7.7) Lymphocytes # (Auto) 2.1 x10^3/uL (1.0-4.8) Monocytes # (Auto) 0.7 x10^3/uL (0.0-1.1) Eosinophils # (Auto) 0.9 x10^3/uL (0.0-0.7) H Basophils # (Auto) 0.1 x10^3/uL (0.0-0.2) Prothrombin Time 13.6 SEC (11.7-14.0) Prothrombin Time INR 1.1 (0.8-1.1) Laboratory Tests 10/01/19 05:20 (JUAN RAMON MILLER DO) EKG EKG [] (JUAN RAMON MILLER DO) Radiology/Procedures Radiology/Procedures [] (JUAN RAMON MILLER DO) Course & Med Decision Making Course & Med Decision Making Pertinent Labs and Imaging studies reviewed. (See chart for details) [Dark red blood per rectum. On Effient. Care endorsed to oncoming ERP at 06:00 (JUAN RAMON MILLER DO) Course & Med Decision Making Patient's care transferred to [facility] at 0600. Patient complaining of 3 episodes of rectal bleeding since 3 AM today and had another episode of rectal bleeding while he was in ER with maroon-colored large amount of blood. Patient had stable vital signs without drop-off hemoglobin. Patient stated he took Advil last night for headache and currently taking anticoagulation medication. Patient requiring admission for further evaluation and treatment. Discussed with Dr. Soto who is in agreement with admission. Discussed findings and plan with p atient and family, who acknowledge understanding and agreement. (LINDSAY KIMBROUGH MD) Dragon Disclaimer Dragon Disclaimer This electronic medical record was generated, in whole or in part, using a voice recognition dictation system. (JUAN RAMON MILLER DO) Departure Departure Impression: Primary Impression: Lower GI bleed Disposition: ADMITTED INPATIENT (at 0710) Admitting Physician: NOVA (Dr. Soto accepted admission at 0708) (LINDSAY KIMBROUGH MD) Condition: IMPROVED Referrals: DANNY COLLADO MD (PCP) JUAN RAMON MILLER DO Oct 01, 2019 05:28 LINDSAY KIMBROUGH MD Oct 01, 2019 08:38
[2019-10-01] MEDS ORDERED: KETOROLAC 15 MG/ML VIAL. IVP ONE (05:30)
[2019-10-01] MEDS ORDERED: IV NORMAL SALINE 1000ML BAG 1,000 ML IV ONE (05:30)
[2019-10-01] MEDS ORDERED: ONDANSETRON PF 4 MG/2 ML VIAL. IVP ONE (05:30)
[2019-10-01 05:40] LABS: BASO # 0.1 x10^3/uL (0.0-0.2); BASO % 1 % (0-3); EOS # 0.9 x10^3/uL (0.0-0.7); EOS % 15 % (0-3); HEMATOCRIT 43.5 % (39.0-53.0); HEMOGLOBIN 14.3 g/dL (13.0-17.5); LYMPH # 2.1 x10^3/uL (1.0-4.8); LYMPH % 34 % (24-48); MEAN CORPUSCULAR HEMOGLOBIN 30 pg (25-35); MEAN CORPUSCULAR HGB CONC 33 g/dL (31-37); MEAN CORPUSCULAR VOLUME 90 fL (79-100); MONO # 0.7 x10^3/uL (0.0-1.1); MONO % 11 % (0-9); NEUT # 2.4 x10^3/uL (1.8-7.7); NEUT % 39 % (31-73); PLATELET COUNT 228 x10^3/uL (140-400); RED BLOOD COUNT 4.84 x10^6/uL (4.30-5.70); RED CELL DISTRIBUTION WIDTH 14.4 % (11.5-14.5); WHITE BLOOD COUNT 6.1 x10^3/uL (4.0-11.0)
[2019-10-01 05:50] LABS: PROTHROMBIN TIME PATIENT 13.6 SEC (11.7-14.0)
[2019-10-01 07:28] LABS: CREATININE 0.9 mg/dL (0.7-1.3); GFR 98.7; POTASSIUM 4.1 mmol/L (3.5-5.1)
[2019-10-01] MEDS ORDERED: PANTOPRAZOLE IV PUSH 40 MG VIAL. IVP ONE ×2 (07:30→08:00)
[2019-10-01] MEDS ORDERED: PANTOPRAZOLE SODIUM IV DRIP 80 MG in IV NORMAL SALINE 100ML 100 ML IV SCH ×2 (07:30→08:00)
[2019-10-01 07:33] LABS: ALBUMIN 2.7 g/dL (3.4-5.0); ALBUMIN/GLOBULIN RATIO 0.7 (1.0-1.7); TOTAL BILIRUBIN 0.5 mg/dL (0.2-1.0); TOTAL PROTEIN 6.8 g/dL (6.4-8.2)
[2019-10-01 07:37] LABS: FECAL OB PT POSITIVE (NEG)
[2019-10-01] MEDS ORDERED: PANTOPRAZOLE SODIUM IV DRIP 80 MG in IV NORMAL SALINE 100ML 100 ML IV PRN (08:00)
[2019-10-01] MEDS ORDERED: IV NORMAL SALINE 1000ML BAG 1,000 ML IV SCH (08:22)
--- NOTE | 2019-10-01 09:00 | NUR ---
The patient, CONY VILCHIS, 79 y/o, M admitted by CAROLYN STRICKLAND III, DO, was given written information regarding hospital policies, unit procedures and contact persons. Valuables were checked and left in room with patient. Pt arrived via wheelchair from ED. Ambulated to bathroom upon arrival. This RN noted blood in pt's stool. No complaints of pain at this time. Pt's son at bedside. VSS, on room air, call light within reach. Will continue to monitor.
[2019-10-01 09:35] VITALS: BP 176/84
[2019-10-01] MEDS ORDERED: PRAS10TA9 PO (09:35)
[2019-10-01] MEDS ORDERED: ASPI-630 PO (09:35)
[2019-10-01] MEDS ORDERED: FURO40TA4 PO (09:35)
[2019-10-01] MEDS ORDERED: LATA2.5D3 EACHEYE (09:35)
[2019-10-01] MEDS ORDERED: ISOS30TA4 PO (09:35)
[2019-10-01] MEDS ORDERED: METO200T46 PO (09:35)
[2019-10-01] MEDS ORDERED: ALBU2.5V14 NEB ×2 (09:35)
[2019-10-01] MEDS ORDERED: HYDR-2869 PO (09:35)
[2019-10-01] MEDS ORDERED: SOTA80TA48 PO (09:35)
[2019-10-01 10:50] VITALS: BP 123/67
--- NOTE | 2019-10-01 11:12 | PDOC2 ---
LIU BOB [facility] 10/01/19 1112: CARDIAC CONSULT DATE OF CONSULT Date of Consult DATE: 10/01/19 TIME: 11:01 REASON FOR CONSULT Reason for Consult: recent stent placement, on Effient REFERRING PHYSICIAN Referring Physician: Dr. Contreras SOURCE Source: Chart review, Patient HISTORY OF PRESENT ILLNESS HISTORY OF PRESENT ILLNESS This is a 79 yo male who presented secondary to blood in his stool. Patient repo rts he initially noticed some dark blood in his stool yesterday. Event became bring red blood in his stool. Persisted into early this morning so he came to the ED for further evaluation and treatment. No dizziness, diaphoresis, shortness of breath, palpitations, or nausea/vomiting. Has a history of CAD s/p PCI/ANAID to ramus intermedius 07/28/2019 and VT s/p AICD in late July of this year as well. Is on DAPT with ASA and Effient. PAST MEDICAL HISTORY Cardiovascular: CAD, CHF, HTN, Other (VT) Pulmonary: Asthma Rheumatologic: Gout Renal/: Benign prostatic enlarg. PAST SURGICAL HISTORY Past Surgical History: Pacemaker (AICD), Other (PCI/ANAID to ramus intermedius ) FAMILY HISTORY Family History: Hypertension SOCIAL HISTORY Smoke: No ALCOHOL: none Drugs: None Lives: Alone CURRENT MEDICATIONS CURRENT MEDICATIONS Current Medications Medications (Trade) Dose Ordered Sig/Ken Route PRN Reason Start Time Stop Time Status Last Admin Dose Admin Sodium Chloride 1,000 ml @ 1,000 mls/hr 1X ONCE IV 10/01/19 05:30 10/01/19 06:29 DC 10/01/19 05:32 Ketorolac Tromethamine (Toradol 15mg Vial) 15 mg 1X ONCE IVP 10/01/19 05:30 10/01/19 05:31 DC 10/01/19 05:32 Ondansetron HCl (Zofran) 4 mg 1X ONCE IVP 10/01/19 05:30 10/01/19 05:31 DC 10/01/19 05:32 Pantoprazole Sodium (PROTONIX VIAL for IV PUSH) 40 mg 1X ONCE IVP 10/01/19 08:00 10/01/19 08:01 DC 10/01/19 08:43 Pantoprazole Sodium 80 mg/ Sodium Chloride 100 ml @ 10 mls/hr Q10H PRN IV . 10/01/19 08:00 10/01/19 08:42 ALLERGIES ALLERGIES: Coded Allergies: No Known Drug Allergies (Unverified , 07/23/14) ROS Review of System 14 point ROS conducted with pertinent positives noted above in HPI. PHYSICAL EXAM General: Alert, Oriented X3, Cooperative, No acute distress HEENT: Atraumatic, Mucous membr. moist/pink Lungs: Clear to auscultation, Normal air movement Heart: Regular rate, Normal S1, Normal S2, Other (2/6 systolic murmur ) Abdomen: No tenderness Extremities: No edema, Normal pulses Skin: No breakdown, No significant lesion Neuro: Normal speech, Sensation intact Psych/Mental Status: Mental status NL, Mood NL MUSCULOSKELETAL: Osteoarthritic changes both hands VITALS/I&O VITALS/I&O: Vital Signs Date Time Temp Pulse Resp B/P (MAP) Pulse Ox O2 Delivery O2 Flow Rate FiO2 10/01/19 10:50 97.4 70 18 123/67 (85) 93 Room Air 97.4 LABS Lab: Laboratory Tests Test 10/01/19 05:20 10/01/19 06:30 10/01/19 07:00 White Blood Count 6.1 x10^3/uL (4.0-11.0) Red Blood Count 4.84 x10^6/uL (4.30-5.70) Hemoglobin 14.3 g/dL (13.0-17.5) Hematocrit 43.5 % (39.0-53.0) Mean Corpuscular Volume 90 fL (79-100) Mean Corpuscular Hemoglobin 30 pg (25-35) Mean Corpuscular Hemoglobin Concent 33 g/dL (31-37) Red Cell Distribution Width 14.4 % (11.5-14.5) Platelet Count 228 x10^3/uL (140-400) Neutrophils (%) (Auto) 39 % (31-73) Lymphocytes (%) (Auto) 34 % (24-48) Monocytes (%) (Auto) 11 % (0-9) H Eosinophils (%) (Auto) 15 % (0-3) H Basophils (%) (Auto) 1 % (0-3) Neutrophils # (Auto) 2.4 x10^3/uL (1.8-7.7) Lymphocytes # (Auto) 2.1 x10^3/uL (1.0-4.8) Monocytes # (Auto) 0.7 x10^3/uL (0.0-1.1) Eosinophils # (Auto) 0.9 x10^3/uL (0.0-0.7) H Basophils # (Auto) 0.1 x10^3/uL (0.0-0.2) Prothrombin Time 13.6 SEC (11.7-14.0) Prothrombin Time INR 1.1 (0.8-1.1) Stool Occult Blood Positive (NEG) Sodium Level 140 mmol/L (136-145) Potassium Level 4.1 mmol/L (3.5-5.1) Chloride Level 105 mmol/L (98-107) Carbon Dioxide Level 28 mmol/L (21-32) Anion Gap 7 (6-14) Blood Urea Nitrogen 16 mg/dL (8-26) Creatinine 0.9 mg/dL (0.7-1.3) Estimated GFR (Cockcroft-Gault) 98.7 BUN/Creatinine Ratio 18 (6-20) Glucose Level 106 mg/dL (70-99) H Calcium Level 8.0 mg/dL (8.5-10.1) L Total Bilirubin 0.5 mg/dL (0.2-1.0) Aspartate Amino Transferase (AST) 21 U/L (15-37) Alanine Aminotransferase (ALT) 13 U/L (16-63) L Alkaline Phosphatase 70 U/L (46-116) Total Protein 6.8 g/dL (6.4-8.2) Albumin 2.7 g/dL (3.4-5.0) L Albumin/Globulin Ratio 0.7 (1.0-1.7) L Laboratory Tests 10/01/19 05:20 Laboratory Tests 10/01/19 07:00 ECHOCARDIOGRAM ECHOCARDIOGRAM <Conclusion> The systolic function is mildly impaired. The Ejection Fraction is 40-45%. There is mild to moderate global hypokinesis. There is mild to moderate valvular aortic stenosis. Calculated aortic valve area is 1.6 cm2 with maximum pressure gradient of 45 mmHg and mean pressure gradient of 17 mmHg. DATE: 07/30/19 1603 HEART CATH HEART CATH CORONARY ANGIOGRAPHY: LM is a large caliber vessel with normal angiographic appearance. LAD is a large caliber vessel with normal angiographic appearance. Ramus is a moderate caliber bifurcating vessel with a focal 99% subtotal occlusion at the ostium of a small superior branch and a 90% focal stenossi of the inferior branch. LCx is a large caliber non-dominant vessel with normal angiographic appearance. OM1 is a large caliber vessel with normal angiographic appearance. RCA is a large caliber dominant vessel with a proximal 50% stenosis. RPDA is a moderate caliber vessel with normal angiographic appearance. INTERVENTIONAL TECHNIQUE: Due to the patient's presentation with stuttering chest pain, VT and NSTEMI with evidence of significant ramus disease, an intervention was planned. Heparin and Tirofiban were used for anticoagulation. Through a 6Fr EBU 3.75 guide catheter, a 0.014'' prowater wire was placed in the inferior ramus branch. A second wire was placed in the superior branch. Next, the lesion in the ramus was angioplastied with a 2.5/12 mm balloon and then stented with a Resolute 2.5/15 mm ANAID. The superior branch was angioplastied with the 2.5 mm balloon at 14 michael. Finally, a kissing balloon was performed with a 3.0 mm NC balloon in the main vessel and 2.5mm balloon in the smaller superior branch. The superior branch was not stented due to less than 2mm size distally. Final angiography demonstrated excellent stent expansion with AMBER 3 flow in the vessel. CLOSURE: At case completion the right radial sheath was removed and a Terumo radial band was applied with 13 ml of air. COMPLICATIONS: The patient tolerated the procedure well and there were no immediate complications. AMBER Flow AMBER Flow (Pre-Intervention): AMBER-2 AMBER Flow (Post-Intervention): AMBER-3 Conclusion 1. Acute on chronic diastolic HF. LVEDP 30 mm Hg 2. Probable LV systolic dysfunction, await echo 3. Two vessel CAD 4. Successful PCI of the Ramus Intermedius vessel with a 2.5/15 ANAID Recommendations ASA 81 mg daily Prasugrel 10mg daily high dose statin therapy cardiac rehab. DATE: 07/28/19 1721 ASSESSMENT/PLAN ASSESSMENT/PLAN 1. Hematochezia; hgb at 14. ? hemorrhoid bleeding 2. CAD; s/p recent PCI/ANAID to the ramus intermedius. On DAPT with ASA and Effient 3. Chronic systolic heart failure with ICM; LVEF 45%. Clinically compensated. 4. H/o VT s/p AICD; on sotalol for rhythm maintenance 4. Hypertension 5. CKD; stable. Recommendations Secondary prevention measures as able. Resume BB, sotalol. EKG note QTc Hold ASA/Effient for now with possible GI bleed No ACEi/ARB with h/o potential allergy with facial swelling PPI, monitor H and H Supportive care GUNJAN OSPINA MD 10/01/19 1537: CARDIAC CONSULT ASSESSMENT/PLAN ASSESSMENT/PLAN Patient seen and examined. Agree with above nurse practitioner note. 79-year-old man with possible GI bleeding in the setting of dual antiplatelet therapy for a recent PCI He is status post ICD Continue current medical therapy. We will withhold his aspirin and Effient for now. When cleared by the GI service would resume either aspirin 81mg daily or Plavix 75mg daily monotherapy only. Please call with any further questions. He will follow-up at [facility] cardiology service. LIU BOB APRN Oct 01, 2019 11:12 GUNJAN OSPINA MD Oct 01, 2019 15:37
--- NOTE | 2019-10-01 11:32 | PDOC1 ---
History and Physical Date of Admission: Date of Admission DATE: 10/01/19 TIME: 11:28 Chief Complaint: Problems: (1) Lower GI bleed (2) Ventricular tachycardia (3) STEMI (ST elevation myocardial infarction) (4) Lower GI bleed Chief Complain: Hematochezia History of Present Illness: HPI: This is a pleasant middle-aged -Armenian male who had cardiac stents and a pacemaker within the past few months The stents were actually placed here but the pacemaker was put in at another facility Basically he is on Effient and now he has melena I discussed the case with ER physician We are admitting the patient with consultation to GI and cardiology She we note the patient has associated weakness this is been occurring for several days moving makes it worse nothing makes it better described as irritating Past Medical/Surgical History: PMH/PSH: CAD and hypertension Arrhythmias Allergies: Allergies: Coded Allergies: No Known Drug Allergies (Unverified , 07/23/14) Family History: Family History: Coronary disease Social History: Social Hisoty: He doesn't drink smoke or take drugs He is retired and used to work at a [employer] Current Medications: Current Medications Current Medications Sodium Chloride 1,000 ml @ 1,000 mls/hr 1X ONCE IV Last administered on 10/01/19at 05:32; Start 10/01/19 at 05:30; Stop 10/01/19 at 06:29; Status DC Ketorolac Tromethamine (Toradol 15mg Vial) 15 mg 1X ONCE IVP Last administered on 10/01/19at 05:32; Start 10/01/19 at 05:30; Stop 10/01/19 at 05:31; Status DC Ondansetron HCl (Zofran) 4 mg 1X ONCE IVP Last administered on 10/01/19at 05:32; Start 10/01/19 at 05:30; Stop 10/01/19 at 05:31; Status DC Pantoprazole Sodium (PROTONIX VIAL for IV PUSH) 40 mg 1X ONCE IVP ; Start 10/01/19 at 07:30; Stop 10/01/19 at 07:36; Status DC Pantoprazole Sodium 80 mg/ Sodium Chloride 100 ml @ 10 mls/hr Q10H IV ; Start 10/01/19 at 07:30; Stop 10/01/19 at 07:46; Status DC Pantoprazole Sodium (PROTONIX VIAL for IV PUSH) 40 mg 1X ONCE IVP Last administered on 10/01/19at 08:43; Start 10/01/19 at 08:00; Stop 10/01/19 at 08:01; Status DC Pantoprazole Sodium 80 mg/ Sodium Chloride 100 ml @ 10 mls/hr Q10H IV ; Start 10/01/19 at 08:00; Stop 10/01/19 at 07:47; Status DC Pantoprazole Sodium 80 mg/ Sodium Chloride 100 ml @ 10 mls/hr Q10H PRN IV . Last administered on 10/01/19at 08:42; Start 10/01/19 at 08:00 Sodium Chloride 1,000 ml @ 150 mls/hr Q6H40M IV ; Start 10/01/19 at 08:22; Stop 10/02/19 at 08:21 Active Scripts Active Reported Effient (Prasugrel Hcl) 10 Mg Tablet 1 Tab PO DAILY Latanoprost 2.5 Ml Drops 1 Drop EACHEYE QHS Isosorbide Mononitrate Er (Isosorbide Mononitrate) 30 Mg Tab.er.24h 1 Tab PO DAILY Hydralazine Hcl 50 Mg Tablet 1 Tab PO TID Aspirin 81 Mg Tab.chew 1 Tab PO DAILY Albuterol Sulfate Conc Neb Soln (Albuterol Sulfate) 2.5 Mg/0.5 Ml Vial.neb 1 Vial NEB PRN Q6HRS PRN Albuterol Sulfate Conc Neb Soln (Albuterol Sulfate) 2.5 Mg/0.5 Ml Vial.neb 1 Vial NEB Q6HRS Metoprolol Succinate ( Xl ) (Metoprolol Succinate) 200 Mg Tab.er.24h 1 Tab PO DAILY Sotalol (Sotalol Hcl) 80 Mg Tablet 120 Mg PO BID Furosemide 40 Mg Tablet 1 Tab PO DAILY Vitamin D (Cholecalciferol (Vitamin D3)) 50,000 Unit Capsule 1 Cap PO WEEKLY 28 Days Zanaflex (Tizanidine Hcl) 4 Mg Tablet 1 Tab PO QHS 30 Days Flomax (Tamsulosin Hcl) 0.4 Mg Cap.er.24h 1 Cap PO HS Amlodipine Besylate 10 Mg Tablet 1 Tab PO DAILY Advair 250-50 Diskus (Fluticasone/Salmeterol) 1 Each Disk.w.dev 1 Puff IH PRN PRN ROS: Review of Systems Review of System REVIEW OF SYSTEMS: GENERAL: Denies weakness SKIN: No bruising, hair changes or rashes. EYES: No blurred, double or loss of vision. NOSE AND THROAT: No history of nosebleeds, hoarseness or sore throat. HEART: No history of palpitations, chest pain or shortness of breath on exertion. LUNGS: Denies cough, hemoptysis, wheezing or shortness of breath. GASTROINTESTINAL: Denies changes in appetite, nausea, vomiting, diarrhea or constipation. GENITOURINARY: No history of frequency, urgency, hesitancy or nocturia. NEUROLOGIC: Denies history of numbness, tingling, tremor or weakness. PSYCHIATRIC: No history of panic, anxiety or depression. ENDOCRINE: No history of heat or cold intolerance, polyuria or polydipsia. EXTREMITIES: Denies muscle weakness, joint pain, pain on walking or stiffness. Physical Exam: Vital Signs: Vital Signs Date Time Temp Pulse Resp B/P (MAP) Pulse Ox O2 Delivery O2 Flow Rate FiO2 10/01/19 10:50 97.4 70 18 123/67 (85) 93 Room Air 97.4 Physcial Exam: GEN: No apparent distress. Alert and oriented HEENT: Normal cephalic, atraumatic, external auditory canals are patent EYES: Extraocular muscles are intact, pupil are equally round and reactive to light and accommodation MUSCULOSKELETAL: Well developed , well nourished, good range of motion ENDOCRINE: Ny thyromegaly was palpated LYMPHATICS: No cervical chain or axillary nodes were noted HEMATOPOIETIC: No bruising NECK: Supple, no JVD, no thyromegaly was noted LUNGS: Clear to auscultation in all lung adair without rhonchi or wheezing HEART: RRR, S!, S2 present. Peripheral pulses intact, no obvious murmurs noted ABDOMEN: Soft, nontender. Positive bowel sounds, no organomegaly, normal bowel sounds EXTREMITIES: Without clubbing, cyanosis, or edema. Pedal pulses intact. Negative Homans sign NEUROLOGIC: Normal speech and tone. A&O x 3, moves all extremities, no obvious focal deficits PSYCHIATRIC: Normal affect, normal mood. Stable SKIN: No ulcerations or rashes, good skin turgor, no jaundice VASCULAR: Good capillary refill, neurovascular bundle appears to be intact Labs: Labs: Laboratory Tests Test 10/01/19 05:20 10/01/19 06:30 10/01/19 07:00 White Blood Count 6.1 x10^3/uL (4.0-11.0) Red Blood Count 4.84 x10^6/uL (4.30-5.70) Hemoglobin 14.3 g/dL (13.0-17.5) Hematocrit 43.5 % (39.0-53.0) Mean Corpuscular Volume 90 fL (79-100) Mean Corpuscular Hemoglobin 30 pg (25-35) Mean Corpuscular Hemoglobin Concent 33 g/dL (31-37) Red Cell Distribution Width 14.4 % (11.5-14.5) Platelet Count 228 x10^3/uL (140-400) Neutrophils (%) (Auto) 39 % (31-73) Lymphocytes (%) (Auto) 34 % (24-48) Monocytes (%) (Auto) 11 % (0-9) Eosinophils (%) (Auto) 15 % (0-3) Basophils (%) (Auto) 1 % (0-3) Neutrophils # (Auto) 2.4 x10^3/uL (1.8-7.7) Lymphocytes # (Auto) 2.1 x10^3/uL (1.0-4.8) Monocytes # (Auto) 0.7 x10^3/uL (0.0-1.1) Eosinophils # (Auto) 0.9 x10^3/uL (0.0-0.7) Basophils # (Auto) 0.1 x10^3/uL (0.0-0.2) Prothrombin Time 13.6 SEC (11.7-14.0) Prothromb Time International Ratio 1.1 (0.8-1.1) Stool Occult Blood Positive (NEG) Sodium Level 140 mmol/L (136-145) Potassium Level 4.1 mmol/L (3.5-5.1) Chloride Level 105 mmol/L (98-107) Carbon Dioxide Level 28 mmol/L (21-32) Anion Gap 7 (6-14) Blood Urea Nitrogen 16 mg/dL (8-26) Creatinine 0.9 mg/dL (0.7-1.3) Estimated GFR (Cockcroft-Gault) 98.7 BUN/Creatinine Ratio 18 (6-20) Glucose Level 106 mg/dL (70-99) Calcium Level 8.0 mg/dL (8.5-10.1) Total Bilirubin 0.5 mg/dL (0.2-1.0) Aspartate Amino Transf (AST/SGOT) 21 U/L (15-37) Alanine Aminotransferase (ALT/SGPT) 13 U/L (16-63) Alkaline Phosphatase 70 U/L (46-116) Total Protein 6.8 g/dL (6.4-8.2) Albumin 2.7 g/dL (3.4-5.0) Albumin/Globulin Ratio 0.7 (1.0-1.7) Laboratory Tests Test 10/01/19 05:20 10/01/19 06:30 10/01/19 07:00 White Blood Count 6.1 x10^3/uL (4.0-11.0) Red Blood Count 4.84 x10^6/uL (4.30-5.70) Hemoglobin 14.3 g/dL (13.0-17.5) Hematocrit 43.5 % (39.0-53.0) Mean Corpuscular Volume 90 fL (79-100) Mean Corpuscular Hemoglobin 30 pg (25-35) Mean Corpuscular Hemoglobin Concent 33 g/dL (31-37) Red Cell Distribution Width 14.4 % (11.5-14.5) Platelet Count 228 x10^3/uL (140-400) Neutrophils (%) (Auto) 39 % (31-73) Lymphocytes (%) (Auto) 34 % (24-48) Monocytes (%) (Auto) 11 % (0-9) Eosinophils (%) (Auto) 15 % (0-3) Basophils (%) (Auto) 1 % (0-3) Neutrophils # (Auto) 2.4 x10^3/uL (1.8-7.7) Lymphocytes # (Auto) 2.1 x10^3/uL (1.0-4.8) Monocytes # (Auto) 0.7 x10^3/uL (0.0-1.1) Eosinophils # (Auto) 0.9 x10^3/uL (0.0-0.7) Basophils # (Auto) 0.1 x10^3/uL (0.0-0.2) Prothrombin Time 13.6 SEC (11.7-14.0) Prothromb Time International Ratio 1.1 (0.8-1.1) Stool Occult Blood Positive (NEG) Sodium Level 140 mmol/L (136-145) Potassium Level 4.1 mmol/L (3.5-5.1) Chloride Level 105 mmol/L (98-107) Carbon Dioxide Level 28 mmol/L (21-32) Anion Gap 7 (6-14) Blood Urea Nitrogen 16 mg/dL (8-26) Creatinine 0.9 mg/dL (0.7-1.3) Estimated GFR (Cockcroft-Gault) 98.7 BUN/Creatinine Ratio 18 (6-20) Glucose Level 106 mg/dL (70-99) Calcium Level 8.0 mg/dL (8.5-10.1) Total Bilirubin 0.5 mg/dL (0.2-1.0) Aspartate Amino Transf (AST/SGOT) 21 U/L (15-37) Alanine Aminotransferase (ALT/SGPT) 13 U/L (16-63) Alkaline Phosphatase 70 U/L (46-116) Total Protein 6.8 g/dL (6.4-8.2) Albumin 2.7 g/dL (3.4-5.0) Albumin/Globulin Ratio 0.7 (1.0-1.7) Assessment/Plan Assessment/Plan 1. Hematochezia 2. CAD; s/p recent PCI/ANAID to the ramus intermedius 3. Chronic systolic heart failure with ICM; LVEF 45% 4. H/o VT s/p AICD 4. Hypertension 5. CKD Plan Trend hemoglobin We'll continue oral antiplatelet drugs if okay with cardiology and GI PT OT DVT prophylaxis Full code Continue other home medicines Hope to discharge for the holidays if okay with consultants? CAROLYN STRICKLAND III DO Oct 01, 2019 11:32
--- NOTE | 2019-10-01 13:22 | EKG ---
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
--- NOTE | 2019-10-01 13:47 | PDOC2 ---
CONSULT Date of Consult Date of Consult DATE: 10/01/19 TIME: 13:45 Reason for Consult Reason for Consult: Rectal bleed on anticoagulation Past Medical History Cardiovascular: CAD, CHF, HTN, Other (VT) Pulmonary: Asthma Rheumatologic: Gout Renal/: Benign prostatic enlarg. Past Surgical History Past Surgical History: Pacemaker (AICD), Other (PCI/ANAID to ramus intermedius ) Family History Family History: Hypertension Social History No ALCOHOL: none Drugs: None Lives: Alone Current Problem List Problem List Problems Medical Problems: (1) Lower GI bleed Status: Acute Current Medications Current Medications Current Medications Sodium Chloride 1,000 ml @ 1,000 mls/hr 1X ONCE IV Last administered on 10/01/19at 05:32; Start 10/01/19 at 05:30; Stop 10/01/19 at 06:29; Status DC Ketorolac Tromethamine (Toradol 15mg Vial) 15 mg 1X ONCE IVP Last administered on 10/01/19at 05:32; Start 10/01/19 at 05:30; Stop 10/01/19 at 05:31; Status DC Ondansetron HCl (Zofran) 4 mg 1X ONCE IVP Last administered on 10/01/19at 05:32; Start 10/01/19 at 05:30; Stop 10/01/19 at 05:31; Status DC Pantoprazole Sodium (PROTONIX VIAL for IV PUSH) 40 mg 1X ONCE IVP ; Start 1 12/02/18 at 07:30; Stop 10/01/19 at 07:36; Status DC Pantoprazole Sodium 80 mg/ Sodium Chloride 100 ml @ 10 mls/hr Q10H IV ; Start 10/01/19 at 07:30; Stop 10/01/19 at 07:46; Status DC Pantoprazole Sodium (PROTONIX VIAL for IV PUSH) 40 mg 1X ONCE IVP Last administered on 10/01/19at 08:43; Start 10/01/19 at 08:00; Stop 10/01/19 at 08:01; Status DC Pantoprazole Sodium 80 mg/ Sodium Chloride 100 ml @ 10 mls/hr Q10H IV ; Start 10/01/19 at 08:00; Stop 10/01/19 at 07:47; Status DC Pantoprazole Sodium 80 mg/ Sodium Chloride 100 ml @ 10 mls/hr Q10H PRN IV . Last administered on 10/01/19at 08:42; Start 10/01/19 at 08:00 Sodium Chloride 1,000 ml @ 150 mls/hr Q6H40M IV ; Start 10/01/19 at 08:22; Stop 10/02/19 at 08:21 Amlodipine Besylate (Norvasc) 10 mg DAILY PO ; Start 10/02/19 at 09:00 Furosemide (Lasix) 40 mg DAILY PO ; Start 10/02/19 at 09:00 Hydralazine HCl (Apresoline) 50 mg TID PO ; Start 10/01/19 at 14:00 Isosorbide Mononitrate (Imdur) 30 mg DAILY PO ; Start 10/02/19 at 09:00 Sotalol HCl (Betapace) 120 mg BID PO ; Start 10/01/19 at 21:00 Metoprolol Succinate (Toprol Xl) 200 mg DAILY PO ; Start 10/01/19 at 14:00 Atorvastatin Calcium (Lipitor) 40 mg QHS PO ; Start 10/01/19 at 21:00 Active Scripts Active Reported Effient (Prasugrel Hcl) 10 Mg Tablet 1 Tab PO DAILY Latanoprost 2.5 Ml Drops 1 Drop EACHEYE QHS Isosorbide Mononitrate Er (Isosorbide Mononitrate) 30 Mg Tab.er.24h 1 Tab PO DAILY Hydralazine Hcl 50 Mg Tablet 1 Tab PO TID Aspirin 81 Mg Tab.chew 1 Tab PO DAILY Albuterol Sulfate Conc Neb Soln (Albuterol Sulfate) 2.5 Mg/0.5 Ml Vial.neb 1 Vial NEB PRN Q6HRS PRN Albuterol Sulfate Conc Neb Soln (Albuterol Sulfate) 2.5 Mg/0.5 Ml Vial.neb 1 Vial NEB Q6HRS Metoprolol Succinate ( Xl ) (Metoprolol Succinate) 200 Mg Tab.er.24h 1 Tab PO DAILY Sotalol (Sotalol Hcl) 80 Mg Tablet 120 Mg PO BID Furosemide 40 Mg Tablet 1 Tab PO DAILY Vitamin D (Cholecalciferol (Vitamin D3)) 50,000 Unit Capsule 1 Cap PO WEEKLY 28 Days Zanaflex (Tizanidine Hcl) 4 Mg Tablet 1 Tab PO QHS 30 Days Flomax (Tamsulosin Hcl) 0.4 Mg Cap.er.24h 1 Cap PO HS Amlodipine Besylate 10 Mg Tablet 1 Tab PO DAILY Advair 250-50 Diskus (Fluticasone/Salmeterol) 1 Each Disk.w.dev 1 Puff IH PRN PRN Allergies Allergies: Coded Allergies: No Known Drug Allergies (Unverified , 07/23/14) Vitals VITALS Vital Signs Date Time Temp Pulse Resp B/P (MAP) Pulse Ox O2 Delivery O2 Flow Rate FiO2 10/01/19 10:50 97.4 70 18 123/67 (85) 93 Room Air 97.4 Labs Labs Laboratory Tests Test 10/01/19 05:20 10/01/19 06:30 10/01/19 07:00 White Blood Count 6.1 x10^3/uL (4.0-11.0) Red Blood Count 4.84 x10^6/uL (4.30-5.70) Hemoglobin 14.3 g/dL (13.0-17.5) Hematocrit 43.5 % (39.0-53.0) Mean Corpuscular Volume 90 fL (79-100) Mean Corpuscular Hemoglobin 30 pg (25-35) Mean Corpuscular Hemoglobin Concent 33 g/dL (31-37) Red Cell Distribution Width 14.4 % (11.5-14.5) Platelet Count 228 x10^3/uL (140-400) Neutrophils (%) (Auto) 39 % (31-73) Lymphocytes (%) (Auto) 34 % (24-48) Monocytes (%) (Auto) 11 % (0-9) Eosinophils (%) (Auto) 15 % (0-3) Basophils (%) (Auto) 1 % (0-3) Neutrophils # (Auto) 2.4 x10^3/uL (1.8-7.7) Lymphocytes # (Auto) 2.1 x10^3/uL (1.0-4.8) Monocytes # (Auto) 0.7 x10^3/uL (0.0-1.1) Eosinophils # (Auto) 0.9 x10^3/uL (0.0-0.7) Basophils # (Auto) 0.1 x10^3/uL (0.0-0.2) Prothrombin Time 13.6 SEC (11.7-14.0) Prothromb Time International Ratio 1.1 (0.8-1.1) Stool Occult Blood Positive (NEG) Sodium Level 140 mmol/L (136-145) Potassium Level 4.1 mmol/L (3.5-5.1) Chloride Level 105 mmol/L (98-107) Carbon Dioxide Level 28 mmol/L (21-32) Anion Gap 7 (6-14) Blood Urea Nitrogen 16 mg/dL (8-26) Creatinine 0.9 mg/dL (0.7-1.3) Estimated GFR (Cockcroft-Gault) 98.7 BUN/Creatinine Ratio 18 (6-20) Glucose Level 106 mg/dL (70-99) Calcium Level 8.0 mg/dL (8.5-10.1) Total Bilirubin 0.5 mg/dL (0.2-1.0) Aspartate Amino Transf (AST/SGOT) 21 U/L (15-37) Alanine Aminotransferase (ALT/SGPT) 13 U/L (16-63) Alkaline Phosphatase 70 U/L (46-116) Total Protein 6.8 g/dL (6.4-8.2) Albumin 2.7 g/dL (3.4-5.0) Albumin/Globulin Ratio 0.7 (1.0-1.7) Laboratory Tests Test 10/01/19 05:20 10/01/19 06:30 10/01/19 07:00 White Blood Count 6.1 x10^3/uL (4.0-11.0) Red Blood Count 4.84 x10^6/uL (4.30-5.70) Hemoglobin 14.3 g/dL (13.0-17.5) Hematocrit 43.5 % (39.0-53.0) Mean Corpuscular Volume 90 fL (79-100) Mean Corpuscular Hemoglobin 30 pg (25-35) Mean Corpuscular Hemoglobin Concent 33 g/dL (31-37) Red Cell Distribution Width 14.4 % (11.5-14.5) Platelet Count 228 x10^3/uL (140-400) Neutrophils (%) (Auto) 39 % (31-73) Lymphocytes (%) (Auto) 34 % (24-48) Monocytes (%) (Auto) 11 % (0-9) Eosinophils (%) (Auto) 15 % (0-3) Basophils (%) (Auto) 1 % (0-3) Neutrophils # (Auto) 2.4 x10^3/uL (1.8-7.7) Lymphocytes # (Auto) 2.1 x10^3/uL (1.0-4.8) Monocytes # (Auto) 0.7 x10^3/uL (0.0-1.1) Eosinophils # (Auto) 0.9 x10^3/uL (0.0-0.7) Basophils # (Auto) 0.1 x10^3/uL (0.0-0.2) Prothrombin Time 13.6 SEC (11.7-14.0) Prothromb Time International Ratio 1.1 (0.8-1.1) Stool Occult Blood Positive (NEG) Sodium Level 140 mmol/L (136-145) Potassium Level 4.1 mmol/L (3.5-5.1) Chloride Level 105 mmol/L (98-107) Carbon Dioxide Level 28 mmol/L (21-32) Anion Gap 7 (6-14) Blood Urea Nitrogen 16 mg/dL (8-26) Creatinine 0.9 mg/dL (0.7-1.3) Estimated GFR (Cockcroft-Gault) 98.7 BUN/Creatinine Ratio 18 (6-20) Glucose Level 106 mg/dL (70-99) Calcium Level 8.0 mg/dL (8.5-10.1) Total Bilirubin 0.5 mg/dL (0.2-1.0) Aspartate Amino Transf (AST/SGOT) 21 U/L (15-37) Alanine Aminotransferase (ALT/SGPT) 13 U/L (16-63) Alkaline Phosphatase 70 U/L (46-116) Total Protein 6.8 g/dL (6.4-8.2) Albumin 2.7 g/dL (3.4-5.0) Albumin/Globulin Ratio 0.7 (1.0-1.7) Assessment/Plan Assessment/Plan Rectal bleed- most likely secondary to diverticular bleed. Ischemic colitis, IBd, colon cancer, and/or AVMS in differential as well as PUD. Plan advance diet cbc tonight. if stable release for o/p egd/colonoscopy. If Hg dropping and bleeding contineus, then tagged rbc bleeding scan as inpt . Full ntoe dictated RICARDA POWELL MD Oct 01, 2019 13:47
[2019-10-01] MEDS: METOPROLOL SUCC 24HR ER 100 MG TAB.ER.24H. PO SCH (14:20)
[2019-10-01 14:26] LABS: HEMATOCRIT 38.6 % (39.0-53.0); HEMOGLOBIN 12.3 g/dL (13.0-17.5)
[2019-10-01 14:46] VITALS: BP 139/74
--- NOTE | 2019-10-01 15:11 | CONS ---
DATE OF CONSULTATION: 10/01/2019 REFERRING PHYSICIAN: Dr. Jean Claude Contreras. REASON FOR CONSULTATION: Rectal bleeding. HISTORY OF PRESENT ILLNESS: A 79-year-old -[place] male whose past medical history is significant for coronary artery disease, hypertension, arrhythmias, history of V-tach on anticoagulation, is admitted with rectal bleeding. There has been no pain, no dizziness, lightheadedness, change in bowel habits, change in weight or appetite. Last colonoscopy was over 6 years ago per the patient, which required potential repair of possible perforation, has done well since. He had the bleeding, which has been going on since three in the morning, has subsequently slowed down. He is hungry and wishes to eat and be released if possible with an impending holiday. PAST MEDICAL HISTORY: History of organic heart disease, CAD, hypertension, status post MT, history of V-tach. ALLERGIES: None. MEDICATIONS: Include isosorbide, furosemide, amlodipine, atorvastatin, sotalol, metoprolol, hydralazine, and pantoprazole. SOCIAL HISTORY: He is retired. Does not drink or smoke. FAMILY HISTORY: Noncontributory. REVIEW OF SYSTEMS: Per records. PHYSICAL EXAMINATION: GENERAL: Reveals a well-nourished, well-developed male who is alert, cooperative, in no acute distress. VITAL SIGNS: Temperature 97.4, pulse ____, respiratory rate 18, blood pressure 123/67. HEENT: Reveals normocephalic, atraumatic head. Pupils and extraocular muscles are not tested. Sclerae anicteric. NECK: Supple. LUNGS: Clear. CARDIOVASCULAR: Reveals an S1, S2 without S3, S4 or appreciable murmur. ABDOMEN: Soft abdomen, normal bowel sounds, without appreciable hepatosplenomegaly. EXTREMITIES: Reveals no cyanosis, clubbing or edema. LABORATORY STUDIES: Hemoglobin 14.3, hematocrit 43.5, white count 5.1, platelet count is 239,000. Sodium 140, potassium 4.1, chloride 105, BUN 16, creatinine 0.9, glucose 105, calcium is 8.0, total bilirubin 0.5, AST 21, ALT of 13, alkaline phosphatase 76, total protein 5.8, albumin 2.7. INR is 1.1. IMPRESSION: Rectal bleeding, most likely secondary to diverticular bleed. Differential does include ischemic colitis, colon cancer, colon polyps, AVMs, peptic ulcer disease. Therefore, recommend repeat blood counts, advance his diet, if blood counts are stable, can be released home with outpatient EGD and colonoscopy next week to two weeks. If the bleeding continues, and the hemoglobin does drop then an inpatient bleeding scan to direct therapy, prior to CTA colonoscopy and/or endoscopy would be pursued. RICARDA POWELL MD DR: JUVENTINO/lani JOB#: [id number] / [id number]
[2019-10-01] MEDS ORDERED: NON FORMULARY ITEM (Albuterol Sulfate (Albuterol Sulfate Conc Neb Soln) 1 VIAL) NEB PRN (15:30)
[2019-10-01] MEDS ORDERED: ALBUTEROL SULFATE 2.5 MG/3 ML NEBU. NEB PRN (15:45)
[2019-10-01] MEDS: ALBUTEROL SULFATE 2.5 MG/3 ML NEBU. NEB SCH ×2 (16:01→20:34)
[2019-10-01 17:49] LABS: BASO # 0.1 x10^3/uL (0.0-0.2); BASO % 1 % (0-3); EOS # 0.8 x10^3/uL (0.0-0.7); EOS % 10 % (0-3); HEMATOCRIT 35.6 % (39.0-53.0); HEMOGLOBIN 11.6 g/dL (13.0-17.5); LYMPH # 2.6 x10^3/uL (1.0-4.8); LYMPH % 33 % (24-48); MEAN CORPUSCULAR HEMOGLOBIN 30 pg (25-35); MEAN CORPUSCULAR HGB CONC 33 g/dL (31-37); MEAN CORPUSCULAR VOLUME 91 fL (79-100); MONO # 0.9 x10^3/uL (0.0-1.1); MONO % 11 % (0-9); NEUT # 3.5 x10^3/uL (1.8-7.7); NEUT % 45 % (31-73); PLATELET COUNT 197 x10^3/uL (140-400); RED BLOOD COUNT 3.92 x10^6/uL (4.30-5.70); RED CELL DISTRIBUTION WIDTH 14.5 % (11.5-14.5); WHITE BLOOD COUNT 7.8 x10^3/uL (4.0-11.0)
[2019-10-01] MEDS ORDERED: NON FORMULARY ITEM (Albuterol Sulfate (Albuterol Sulfate Conc Neb Soln) 1 VIAL) NEB SCH (18:00)
[2019-10-01 19:00] VITALS: BP 127/72
[2019-10-01] MEDS: TAMSULOSIN 0.4 MG CAP.ER.24H. PO SCH (20:05)
[2019-10-01] MEDS: LATANOPROST 0.005% OPHTH SOLUTION 2.5ML BOTTLE. OD SCH (20:06)
[2019-10-01] MEDS: SOTALOL 80 MG TABLET. PO SCH (20:06)
[2019-10-01] MEDS: tiZANidine 4 MG TABLET. PO SCH (20:06)
[2019-10-01] MEDS: ATORVASTATIN CALCIUM 40 MG TABLET. PO SCH (20:06)
[2019-10-01 23:00] VITALS: BP 103/58
[2019-10-02] VITALS (7 sets, daily range): BP systolic 91–143; BP diastolic 55–66
[2019-10-02 04:42] LABS: HEMOGLOBIN 9.6 g/dL (13.0-17.5)
[2019-10-02] MEDS: ALBUTEROL SULFATE 2.5 MG/3 ML NEBU. NEB SCH ×4 (04:49→22:03)
[2019-10-02] MEDS: amLODIPine BESYLATE 10 MG TABLET PO SCH (08:28)
[2019-10-02] MEDS: FUROSEMIDE 40 MG TABLET. PO SCH (08:28)
[2019-10-02] MEDS: SOTALOL 80 MG TABLET. PO SCH ×2 (08:29→21:20)
[2019-10-02] MEDS: ISOSORBIDE MONONITRATE ER 30 MG TAB.ER.24H PO SCH (08:29)
[2019-10-02] MEDS: METOPROLOL SUCC 24HR ER 100 MG TAB.ER.24H. PO SCH (08:30)
--- NOTE | 2019-10-02 11:39 | PDOC ---
Subjective: Subjective: No BM today- no further bleed. Hgb down from 11.6 to 9.4 Objective: Vital Signs: Vital Signs Date Time Temp Pulse Resp B/P (MAP) Pulse Ox O2 Delivery O2 Flow Rate FiO2 10/02/19 11:00 97.8 69 16 93/55 (68) 95 Room Air 97.8 10/02/19 04:50 2.0 Labs: Laboratory Tests Test 10/01/19 14:10 10/01/19 17:40 10/02/19 04:00 Hemoglobin 12.3 g/dL (13.0-17.5) 11.6 g/dL (13.0-17.5) 9.6 g/dL (13.0-17.5) Hematocrit 38.6 % (39.0-53.0) 35.6 % (39.0-53.0) 30.0 % (39.0-53.0) Mean Corpuscular Hemoglobin Concent 32 g/dL (31-37) 33 g/dL (31-37) 32 g/dL (31-37) White Blood Count 7.8 x10^3/uL (4.0-11.0) Red Blood Count 3.92 x10^6/uL (4.30-5.70) Mean Corpuscular Volume 91 fL (79-100) Mean Corpuscular Hemoglobin 30 pg (25-35) Red Cell Distribution Width 14.5 % (11.5-14.5) Platelet Count 197 x10^3/uL (140-400) Neutrophils (%) (Auto) 45 % (31-73) Lymphocytes (%) (Auto) 33 % (24-48) Monocytes (%) (Auto) 11 % (0-9) Eosinophils (%) (Auto) 10 % (0-3) Basophils (%) (Auto) 1 % (0-3) Neutrophils # (Auto) 3.5 x10^3/uL (1.8-7.7) Lymphocytes # (Auto) 2.6 x10^3/uL (1.0-4.8) Monocytes # (Auto) 0.9 x10^3/uL (0.0-1.1) Eosinophils # (Auto) 0.8 x10^3/uL (0.0-0.7) Basophils # (Auto) 0.1 x10^3/uL (0.0-0.2) Physical Exam: Physical Exam: PHYSICAL EXAMINATION: GENERAL: Reveals a well-nourished, well-developed male who is alert, cooperative, in no acute distress. HEENT: Reveals normocephalic, atraumatic head. Pupils and extraocular muscles are not tested. Sclerae anicteric. NECK: Supple. LUNGS: Clear. CARDIOVASCULAR: Reveals an S1, S2 without S3, S4 or appreciable murmur. ABDOMEN: Soft abdomen, normal bowel sounds, without appreciable hepatosplenomegaly. EXTREMITIES: Reveals no cyanosis, clubbing or edema. Assessment & Plan: Assessment : A 1) rectal bleed- most likely secondary to diverticular bleed. Differential does include ischemic colitis, colon cancer, colon polyps, AVMs, peptic ulcer disease. 2) anemia Plan: Plan: Check bleeding scan JOSEPH ARBOLEDA MD Oct 02, 2019 11:39
--- NOTE | 2019-10-02 11:51 | PDOC ---
[employer] PROGRESS NOTE Chief Complaint Chief Complaint Rectal bleeding on antiplatelet drugs for recent stent History of Present Illness History of Present Illness 10/02/19 Patient seen and examined Chart reviewed Discussed with RN Vitals/I&O Vitals/I&O: Vital Signs Date Time Temp Pulse Resp B/P (MAP) Pulse Ox O2 Delivery O2 Flow Rate FiO2 10/02/19 11:45 Room Air 10/02/19 11:00 97.8 69 16 93/55 (68) 95 97.8 10/02/19 04:50 2.0 I & O 10/01/19 10/01/19 10/02/19 15:00 23:00 07:00 Intake Total 700 ml 180 ml 300 ml Balance 700 ml 180 ml 300 ml Physical Exam General: Alert, Oriented X3, Cooperative, No acute distress Heart: Regular rate, Normal S1, Normal S2, Other (2/6 systolic murmur ) Lungs: Clear Abdomen: No tenderness Extremities: No edema, Normal pulses Skin: No rashes, No breakdown, No significant lesion Labs Labs: Laboratory Tests Test 10/01/19 14:10 10/01/19 17:40 10/02/19 04:00 Hemoglobin 12.3 g/dL (13.0-17.5) 11.6 g/dL (13.0-17.5) 9.6 g/dL (13.0-17.5) Hematocrit 38.6 % (39.0-53.0) 35.6 % (39.0-53.0) 30.0 % (39.0-53.0) Mean Corpuscular Hemoglobin Concent 32 g/dL (31-37) 33 g/dL (31-37) 32 g/dL (31-37) White Blood Count 7.8 x10^3/uL (4.0-11.0) Red Blood Count 3.92 x10^6/uL (4.30-5.70) Mean Corpuscular Volume 91 fL (79-100) Mean Corpuscular Hemoglobin 30 pg (25-35) Red Cell Distribution Width 14.5 % (11.5-14.5) Platelet Count 197 x10^3/uL (140-400) Neutrophils (%) (Auto) 45 % (31-73) Lymphocytes (%) (Auto) 33 % (24-48) Monocytes (%) (Auto) 11 % (0-9) Eosinophils (%) (Auto) 10 % (0-3) Basophils (%) (Auto) 1 % (0-3) Neutrophils # (Auto) 3.5 x10^3/uL (1.8-7.7) Lymphocytes # (Auto) 2.6 x10^3/uL (1.0-4.8) Monocytes # (Auto) 0.9 x10^3/uL (0.0-1.1) Eosinophils # (Auto) 0.8 x10^3/uL (0.0-0.7) Basophils # (Auto) 0.1 x10^3/uL (0.0-0.2) Assessment and Plan Assessmemt and Plan Problems Medical Problems: (1) Lower GI bleed Status Assessment Rectal bleeding Plan Trend hemoglobin Awaiting bleeding scan GI following IV Protonix DVT T prophylaxis home meds Appreciate GI and cardiology input Comment Review of Relevant I have reviewed the following items ashkan (where applicable) has been applied. Medications: Current Medications Medications (Trade) Dose Ordered Sig/Ken Route PRN Reason Start Time Stop Time Status Last Admin Dose Admin Amlodipine Besylate (Norvasc) 10 mg DAILY PO 10/02/19 09:00 10/02/19 08:28 Furosemide (Lasix) 40 mg DAILY PO 10/02/19 09:00 10/02/19 08:28 Hydralazine HCl (Apresoline) 50 mg TID PO 10/01/19 14:00 10/02/19 08:29 Isosorbide Mononitrate (Imdur) 30 mg DAILY PO 10/02/19 09:00 10/02/19 08:29 Sotalol HCl (Betapace) 120 mg BID PO 10/01/19 21:00 10/02/19 08:29 Metoprolol Succinate (Toprol Xl) 200 mg DAILY PO 10/01/19 14:00 10/02/19 08:30 Atorvastatin Calcium (Lipitor) 40 mg QHS PO 10/01/19 21:00 10/01/19 20:06 Latanoprost (Xalatan) 1 drop QHS OD 10/01/19 21:00 10/01/19 20:06 Tamsulosin HCl (Flomax) 0.4 mg HS PO 10/01/19 21:00 10/01/19 20:05 Tizanidine HCl (Zanaflex) 4 mg QHS PO 10/01/19 21:00 10/01/19 20:06 Albuterol Sulfate (Ventolin Neb Soln) 2.5 mg RTQID NEB 10/01/19 16:00 10/02/19 11:44 CAROLYN STRICKLAND III DO Oct 02, 2019 11:51
[2019-10-02 12:13] LABS: HEMATOCRIT 27.9 % (39.0-53.0)
[2019-10-02] MEDS ORDERED: HEPARIN for NUC MED 500 UNIT/5 ML DISP.SYRIN. IV ONE (14:45)
--- NOTE | 2019-10-02 17:49 | RAD ---
Examination: GI BLEED History: Rectal bleeding and anemia Comparison/Correlation: None Findings: 30 mCi technetium 99m UltraTag was utilized for purposes of GI bleed scan examination. Distribution of radiotracer is unremarkable. There is no abnormal accumulation definite for GI bleed. Uptake of radiotracer in the pelvis which appears to correspond with the urinary bladder is evident. Impression: No evidence of GI bleed. Electronically signed by: De Singh MD (10/02/2019 5:46 PM) [facility]
[2019-10-02 18:01] LABS: HEMATOCRIT 28.1 % (39.0-53.0); HEMOGLOBIN 9.1 g/dL (13.0-17.5)
[2019-10-02] MEDS: LATANOPROST 0.005% OPHTH SOLUTION 2.5ML BOTTLE. OD SCH (21:19)
[2019-10-02] MEDS: tiZANidine 4 MG TABLET. PO SCH (21:20)
[2019-10-02] MEDS: TAMSULOSIN 0.4 MG CAP.ER.24H. PO SCH (21:20)
[2019-10-02] MEDS: ATORVASTATIN CALCIUM 40 MG TABLET. PO SCH (21:20)
[2019-10-03 03:10] VITALS: BP 125/59
[2019-10-03 04:22] LABS: HEMATOCRIT 25.3 % (39.0-53.0); HEMOGLOBIN 8.3 g/dL (13.0-17.5)
[2019-10-03 07:00] VITALS: BP 152/65
[2019-10-03 08:04] LABS: CALCIUM 8.2 mg/dL (8.5-10.1); GFR 87.4; POTASSIUM 3.8 mmol/L (3.5-5.1)
--- NOTE | 2019-10-03 08:32 | EKG ---
[facility] [address] [place] [address] Test Date: 2019-10-03 Test Time: 08:29:31 Pat Name: CONY VILCHIS Department: Room: 256 1 Gender: M Auction Assistant: AMADO : 1940 Requested By: SONNY UMANZOR Order Number: [id number] Reading MD: Measurements Intervals Powell Rate: 70 P: 0 NV: 276 QRS: -36 QRSD: 168 T: 54 QT: 484 QTc: 526 Interpretive Statements SINUS RHYTHM VENTRICULAR PREMATURE COMPLEX(ES) PROLONGED NV INTERVAL ABNORMAL LEFT AXIS DEVIATION S1,S2,S3 PATTERN LEFT ANTERIOR FASCICULAR BLOCK RIGHT BUNDLE BRANCH BLOCK BIFASCICULAR BLOCK ABNORMAL ECG RI6.02 Compared to ECG 07/31/2019 08:45:18 First degree AV block now present Left-axis deviation now present Right bundle-branch block now present Bifascicular block now present Ventricular premature complex(es) no longer present
[2019-10-03] MEDS: amLODIPine BESYLATE 10 MG TABLET PO SCH (09:03)
[2019-10-03] MEDS: SOTALOL 80 MG TABLET. PO SCH ×2 (09:03→21:21)
[2019-10-03] MEDS: ISOSORBIDE MONONITRATE ER 30 MG TAB.ER.24H PO SCH (09:04)
[2019-10-03] MEDS: FUROSEMIDE 40 MG TABLET. PO SCH (09:05)
[2019-10-03] MEDS: METOPROLOL SUCC 24HR ER 100 MG TAB.ER.24H. PO SCH (09:06)
[2019-10-03] MEDS: ALBUTEROL SULFATE 2.5 MG/3 ML NEBU. NEB SCH ×4 (09:12→20:09)
--- NOTE | 2019-10-03 10:22 | PDOC ---
LIU BOB MOSAIC TECHNICIAN 10/03/19 1022: CARDIO Progress Notes Date and Time Date of Service 10/03/19 Time of Evaluation 1010 Subjective Subjective: No Chest Pain, No shortness of breath, No Palpitations Vitals Vitals Vital Signs Date Time Temp Pulse Resp B/P (MAP) Pulse Ox O2 Delivery O2 Flow Rate FiO2 10/03/19 09:13 95 Room Air 10/03/19 09:06 69 152/65 10/03/19 07:00 97.4 18 97.4 Weight Weight [ ] Input and Output Intake and Output Intake and Output 10/03/19 07:00 Intake Total 360 ml Balance 360 ml Intake Oral 360 ml # Voids 1 Laboratory Labs Laboratory Tests Test 10/02/19 12:05 10/02/19 17:50 10/03/19 03:40 Hemoglobin 9.0 g/dL (13.0-17.5) 9.1 g/dL (13.0-17.5) 8.3 g/dL (13.0-17.5) Hematocrit 27.9 % (39.0-53.0) 28.1 % (39.0-53.0) 25.3 % (39.0-53.0) Mean Corpuscular Hemoglobin Concent 32 g/dL (31-37) 33 g/dL (31-37) 33 g/dL (31-37) Sodium Level 141 mmol/L (136-145) Potassium Level 3.8 mmol/L (3.5-5.1) Chloride Level 106 mmol/L (98-107) Carbon Dioxide Level 31 mmol/L (21-32) Anion Gap 4 (6-14) Blood Urea Nitrogen 19 mg/dL (8-26) Creatinine 1.0 mg/dL (0.7-1.3) Estimated GFR (Cockcroft-Gault) 87.4 Glucose Level 101 mg/dL (70-99) Calcium Level 8.2 mg/dL (8.5-10.1) Magnesium Level 2.0 mg/dL (1.8-2.4) Physical Exam HEENT: Neck Supple W Full Motion Chest: Symmetric LUNGS: Clear to Auscultation Heart: S1S2, RRR, murmurs (2/6 systolic murmur) Abdomen: Soft N/T Extremities: No Edema Neurology: alert, follow commands Assessment Assessment 1. Hematochezia, GI bleed; hgb drifting downward 2. CAD; s/p recent PCI/ANAID to the ramus intermedius. 3. Chronic systolic heart failure with ICM; LVEF 45%. Clinically compensated. 4. H/o VT s/p AICD; on sotalol for rhythm maintenance. QTc 526. 4. Hypertension 5. CKD; stable. Recommendations Secondary prevention measures as able. Resume either Plavix or ASA monotherapy upon discharge Transfuse as warranted Continue Sotalol and metoprolol for rhythm control Supportive care Follow with with primary animal maintenance supervisor at [facility] upon discharge GUNJAN OSPINA MD 10/03/19 1513: CARDIO Progress Notes Plan Plan Patient seen and examined. Agree with above nurse practitioner note. No acute events overnight. Hemoglobin continues to decrease. Await GI evaluation. Plan as noted above. If he is unable to tolerate any antiplatelet therapy due to GI bleeding issues okay to withhold until follow-up with primary animal maintenance supervisor in 1 week or so. LIU BOB APRN Oct 03, 2019 10:22 GUNJAN OSPINA MD Oct 03, 2019 15:13
[2019-10-03 10:56] VITALS: BP 115/59
--- NOTE | 2019-10-03 11:37 | PDOC ---
[employer] PROGRESS NOTE Chief Complaint Chief Complaint Rectal bleeding on antiplatelet drugs for recent stent History of Present Illness History of Present Illness 10/02/19 Patient seen and examined Chart reviewed Discussed with RN 10/03/19 Patient seen and examined He is still dropping his hemoglobin daily about a gram each day Discussed with RN and the porter sample case and the patient's son Awaiting further GI input suspect he might need endoscopy Not clinically stable for transfer with his hemoglobin dropping so much ( he is apparently out of network) Vitals/I&O Vitals/I&O: Vital Signs Date Time Temp Pulse Resp B/P (MAP) Pulse Ox O2 Delivery O2 Flow Rate FiO2 10/03/19 10:56 98.5 69 18 115/59 (77) 93 Room Air 98.5 I & O 10/02/19 10/02/19 10/03/19 15:00 23:00 07:00 Intake Total 240 ml 120 ml Balance 240 ml 120 ml Physical Exam General: Alert, Oriented X3, Cooperative, No acute distress Heart: Regular rate, Normal S1, Normal S2, Other (2/6 systolic murmur ) Lungs: Clear Abdomen: No tenderness Extremities: No edema, Normal pulses Skin: No rashes, No breakdown, No significant lesion Labs Labs: Laboratory Tests Test 10/02/19 12:05 10/02/19 17:50 10/03/19 03:40 Hemoglobin 9.0 g/dL (13.0-17.5) 9.1 g/dL (13.0-17.5) 8.3 g/dL (13.0-17.5) Hematocrit 27.9 % (39.0-53.0) 28.1 % (39.0-53.0) 25.3 % (39.0-53.0) Mean Corpuscular Hemoglobin Concent 32 g/dL (31-37) 33 g/dL (31-37) 33 g/dL (31-37) Sodium Level 141 mmol/L (136-145) Potassium Level 3.8 mmol/L (3.5-5.1) Chloride Level 106 mmol/L (98-107) Carbon Dioxide Level 31 mmol/L (21-32) Anion Gap 4 (6-14) Blood Urea Nitrogen 19 mg/dL (8-26) Creatinine 1.0 mg/dL (0.7-1.3) Estimated GFR (Cockcroft-Gault) 87.4 Glucose Level 101 mg/dL (70-99) Calcium Level 8.2 mg/dL (8.5-10.1) Magnesium Level 2.0 mg/dL (1.8-2.4) Review of Systems Review of Systems: Complains of weakness complains of dizziness Assessment and Plan Assessmemt and Plan Problems Medical Problems: (1) Lower GI bleed Status: Acute Assessment Rectal bleeding Plan Trend hemoglobin Awaiting possible endoscopy We'll transfuse if he drops below 7 GI following IV Protonix DVT T prophylaxis home meds Appreciate GI and cardiology input Prognosis guarded Comment Review of Relevant I have reviewed the following items ashkan (where applicable) has been applied. Medications: Current Medications Medications (Trade) Dose Ordered Sig/Ken Route PRN Reason Start Time Stop Time Status Last Admin Dose Admin Heparin Sodium (Porcine) (HEPARIN for NUC MED) 100 unit 1X ONCE IV 10/02/19 14:45 10/02/19 14:46 DC 10/02/19 14:45 CAROLYN STRICKLAND III DO Oct 03, 2019 11:37
--- NOTE | 2019-10-03 13:14 | PDOC ---
G I PROGRESS NOTE Reason for Follow-up Rectal bleed Subjective No further bleeding Physical Exam Lungs clear CV S1 S2 ABD +BS, soft, nontender Review of Relevant I have reviewed the following items ashkan (where applicable) has been applied. Labs Laboratory Tests Test 10/01/19 14:10 10/01/19 17:40 10/02/19 04:00 10/02/19 12:05 Hemoglobin 12.3 g/dL (13.0-17.5) 11.6 g/dL (13.0-17.5) 9.6 g/dL (13.0-17.5) 9.0 g/dL (13.0-17.5) Hematocrit 38.6 % (39.0-53.0) 35.6 % (39.0-53.0) 30.0 % (39.0-53.0) 27.9 % (39.0-53.0) Mean Corpuscular Hemoglobin Concent 32 g/dL (31-37) 33 g/dL (31-37) 32 g/dL (31-37) 32 g/dL (31-37) White Blood Count 7.8 x10^3/uL (4.0-11.0) Red Blood Count 3.92 x10^6/uL (4.30-5.70) Mean Corpuscular Volume 91 fL (79-100) Mean Corpuscular Hemoglobin 30 pg (25-35) Red Cell Distribution Width 14.5 % (11.5-14.5) Platelet Count 197 x10^3/uL (140-400) Neutrophils (%) (Auto) 45 % (31-73) Lymphocytes (%) (Auto) 33 % (24-48) Monocytes (%) (Auto) 11 % (0-9) Eosinophils (%) (Auto) 10 % (0-3) Basophils (%) (Auto) 1 % (0-3) Neutrophils # (Auto) 3.5 x10^3/uL (1.8-7.7) Lymphocytes # (Auto) 2.6 x10^3/uL (1.0-4.8) Monocytes # (Auto) 0.9 x10^3/uL (0.0-1.1) Eosinophils # (Auto) 0.8 x10^3/uL (0.0-0.7) Basophils # (Auto) 0.1 x10^3/uL (0.0-0.2) Test 10/02/19 17:50 10/03/19 03:40 Hemoglobin 9.1 g/dL (13.0-17.5) 8.3 g/dL (13.0-17.5) Hematocrit 28.1 % (39.0-53.0) 25.3 % (39.0-53.0) Mean Corpuscular Hemoglobin Concent 33 g/dL (31-37) 33 g/dL (31-37) Sodium Level 141 mmol/L (136-145) Potassium Level 3.8 mmol/L (3.5-5.1) Chloride Level 106 mmol/L (98-107) Carbon Dioxide Level 31 mmol/L (21-32) Anion Gap 4 (6-14) Blood Urea Nitrogen 19 mg/dL (8-26) Creatinine 1.0 mg/dL (0.7-1.3) Estimated GFR (Cockcroft-Gault) 87.4 Glucose Level 101 mg/dL (70-99) Calcium Level 8.2 mg/dL (8.5-10.1) Magnesium Level 2.0 mg/dL (1.8-2.4) Laboratory Tests Test 10/02/19 17:50 10/03/19 03:40 Hemoglobin 9.1 g/dL (13.0-17.5) 8.3 g/dL (13.0-17.5) Hematocrit 28.1 % (39.0-53.0) 25.3 % (39.0-53.0) Mean Corpuscular Hemoglobin Concent 33 g/dL (31-37) 33 g/dL (31-37) Sodium Level 141 mmol/L (136-145) Potassium Level 3.8 mmol/L (3.5-5.1) Chloride Level 106 mmol/L (98-107) Carbon Dioxide Level 31 mmol/L (21-32) Anion Gap 4 (6-14) Blood Urea Nitrogen 19 mg/dL (8-26) Creatinine 1.0 mg/dL (0.7-1.3) Estimated GFR (Cockcroft-Gault) 87.4 Glucose Level 101 mg/dL (70-99) Calcium Level 8.2 mg/dL (8.5-10.1) Magnesium Level 2.0 mg/dL (1.8-2.4) Medications Current Medications Sodium Chloride 1,000 ml @ 1,000 mls/hr 1X ONCE IV Last administered on 10/01/19at 05:32; Start 10/01/19 at 05:30; Stop 10/01/19 at 06:29; Status DC Ketorolac Tromethamine (Toradol 15mg Vial) 15 mg 1X ONCE IVP Last administered on 10/01/19at 05:32; Start 10/01/19 at 05:30; Stop 10/01/19 at 05:31; Status DC Ondansetron HCl (Zofran) 4 mg 1X ONCE IVP Last administered on 10/01/19at 05:32; Start 10/01/19 at 05:30; Stop 10/01/19 at 05:31; Status DC Pantoprazole Sodium (PROTONIX VIAL for IV PUSH) 40 mg 1X ONCE IVP ; Start 10/01/19 at 07:30; Stop 10/01/19 at 07:36; Status DC Pantoprazole Sodium 80 mg/ Sodium Chloride 100 ml @ 10 mls/hr Q10H IV ; Start 10/01/19 at 07:30; Stop 10/01/19 at 07:46; Status DC Pantoprazole Sodium (PROTONIX VIAL for IV PUSH) 40 mg 1X ONCE IVP Last administered on 10/01/19at 08:43; Start 10/01/19 at 08:00; Stop 10/01/19 at 08:01; Status DC Pantoprazole Sodium 80 mg/ Sodium Chloride 100 ml @ 10 mls/hr Q10H IV ; Start 10/01/19 at 08:00; Stop 10/01/19 at 07:47; Status DC Pantoprazole Sodium 80 mg/ Sodium Chloride 100 ml @ 10 mls/hr Q10H PRN IV . Last administered on 10/01/19at 08:42; Start 10/01/19 at 08:00 Sodium Chloride 1,000 ml @ 150 mls/hr Q6H40M IV ; Start 10/01/19 at 08:22; Stop 10/01/19 at 14:35; Status DC Amlodipine Besylate (Norvasc) 10 mg DAILY PO Last administered on 10/03/19at 09:03; Start 10/02/19 at 09:00 Furosemide (Lasix) 40 mg DAILY PO Last administered on 10/03/19 09:05; Start 10/02/19 at 09:00 Hydralazine HCl (Apresoline) 50 mg TID PO Last administered on 10/03/19 09:06; Start 10/01/19 at 14:00 Isosorbide Mononitrate (Imdur) 30 mg DAILY PO Last administered on 10/03/19 09:04; Start 10/02/19 at 09:00 Sotalol HCl (Betapace) 120 mg BID PO Last administered on 10/03/19 09:03; Start 10/01/19 at 21:00 Metoprolol Succinate (Toprol Xl) 200 mg DAILY PO Last administered on 10/03/19 09:06; Start 10/01/19 at 14:00 Atorvastatin Calcium (Lipitor) 40 mg QHS PO Last administered on 10/02/19 21:20; Start 10/01/19 at 21:00 Latanoprost (Xalatan) 1 drop QHS OD Last administered on 10/02/19 21:19; Start 10/01/19 at 21:00 Tamsulosin HCl (Flomax) 0.4 mg HS PO Last administered on 10/02/19 21:20; Start 10/01/19 at 21:00 Tizanidine HCl (Zanaflex) 4 mg QHS PO Last administered on 10/02/19 21:20; Start 10/01/19 at 21:00 Non-Formulary Medication (Albuterol Sulfate (Albuterol Sulfate Conc Neb Soln)) 1 vial PRN Q6HRS PRN NEB SHORTNESS OF BREATH; Start 10/01/19 at 15:30; Status UNV Non-Formulary Medication (Albuterol Sulfate (Albuterol Sulfate Conc Neb Soln)) 1 vial Q6HRS NEB ; Start 10/01/19 at 18:00; Status UNV Albuterol Sulfate (Ventolin Neb Soln) 2.5 mg PRN Q6HRS PRN NEB SHORTNESS OF BREATH Last administered on 10/03/19 04:03; Start 10/01/19 at 15:45 Albuterol Sulfate (Ventolin Neb Soln) 2.5 mg RTQID NEB Last administered on 12/26/19at 13:10; Start 10/01/19 at 16:00 Heparin Sodium (Porcine) (HEPARIN for NUC MED) 100 unit 1X ONCE IV Last administered on 10/02/19at 14:45; Start 10/02/19 at 14:45; Stop 10/02/19 at 14:46; Status DC Active Scripts Active Reported Effient (Prasugrel Hcl) 10 Mg Tablet 1 Tab PO DAILY Latanoprost 2.5 Ml Drops 1 Drop EACHEYE QHS Isosorbide Mononitrate Er (Isosorbide Mononitrate) 30 Mg Tab.er.24h 1 Tab PO DAILY Hydralazine Hcl 50 Mg Tablet 1 Tab PO TID Aspirin 81 Mg Tab.chew 1 Tab PO DAILY Albuterol Sulfate Conc Neb Soln (Albuterol Sulfate) 2.5 Mg/0.5 Ml Vial.neb 1 Vial NEB PRN Q6HRS PRN Albuterol Sulfate Conc Neb Soln (Albuterol Sulfate) 2.5 Mg/0.5 Ml Vial.neb 1 Vial NEB Q6HRS Metoprolol Succinate ( Xl ) (Metoprolol Succinate) 200 Mg Tab.er.24h 1 Tab PO DAILY Sotalol (Sotalol Hcl) 80 Mg Tablet 120 Mg PO BID Furosemide 40 Mg Tablet 1 Tab PO DAILY Vitamin D (Cholecalciferol (Vitamin D3)) 50,000 Unit Capsule 1 Cap PO WEEKLY 28 Days Zanaflex (Tizanidine Hcl) 4 Mg Tablet 1 Tab PO QHS 30 Days Flomax (Tamsulosin Hcl) 0.4 Mg Cap.er.24h 1 Cap PO HS Amlodipine Besylate 10 Mg Tablet 1 Tab PO DAILY Advair 250-50 Diskus (Fluticasone/Salmeterol) 1 Each Disk.w.dev 1 Puff IH PRN PRN Vitals/I & O Vital Sign - Last 24 Hours 10/02/19 10/02/19 10/02/19 10/02/19 14:47 15:00 16:11 19:15 Temp 97.8 97.8 Pulse 71 71 71 69 Resp 16 B/P (MAP) 121/61 121/61 (81) 121/61 (81) 143/66 (91) Pulse Ox 95 O2 Delivery Room Air 10/02/19 10/02/19 10/02/19 10/02/19 20:00 21:20 21:20 22:03 Pulse 69 69 B/P (MAP) 143/66 143/66 O2 Delivery Room Air Room Air 10/02/19 10/03/19 10/03/19 10/03/19 22:55 03:10 04:03 07:00 Temp 97.5 97.9 97.4 97.5 97.9 97.4 Pulse 69 71 69 Resp 18 20 18 B/P (MAP) 91/55 (67) 125/59 (81) 152/65 (94) Pulse Ox 93 94 94 O2 Delivery Room Air Room Air Room Air Room Air 10/03/19 10/03/19 10/03/19 10/03/19 08:00 09:03 09:03 09:04 Pulse 69 69 69 B/P (MAP) 152/65 152/65 152/65 O2 Delivery Room Air 10/03/19 10/03/19 10/03/19 10/03/19 09:06 09:06 09:13 10:56 Temp 98.5 98.5 Pulse 69 69 69 Resp 18 B/P (MAP) 152/65 152/65 115/59 (77) Pulse Ox 95 93 O2 Delivery Room Air Room Air Intake and Output 10/02/19 10/02/19 10/03/19 15:00 23:00 07:00 Intake Total 240 ml 120 ml Balance 240 ml 120 ml Problem List Problems Medical Problems: (1) Lower GI bleed Status: Acute Assessment LGI bleed- most likely secondary to self limited diverticualr bleed, bleeding scan negative, Hg slowly drifting downwards, o/p colonoscopy recommended. RICARDA POWELL MD Oct 03, 2019 13:14
[2019-10-03 13:55] LABS: HEMATOCRIT 25.9 % (39.0-53.0); HEMOGLOBIN 8.5 g/dL (13.0-17.5)
[2019-10-03 15:01] VITALS: BP 125/58
--- NOTE | 2019-10-03 16:15 | NUR ---
SW following for discharge planning. Chart reviewed. Pt lives alone in a [facility]. GI following pt. SW will be available as needed.
[2019-10-03 19:29] VITALS: BP 106/54
[2019-10-03] MEDS: LATANOPROST 0.005% OPHTH SOLUTION 2.5ML BOTTLE. OD SCH (21:21)
[2019-10-03] MEDS: TAMSULOSIN 0.4 MG CAP.ER.24H. PO SCH (21:22)
[2019-10-03] MEDS: ATORVASTATIN CALCIUM 40 MG TABLET. PO SCH (21:22)
[2019-10-03] MEDS: tiZANidine 4 MG TABLET. PO SCH (21:22)
[2019-10-03 22:34] VITALS: BP 119/58
[2019-10-04 02:16] VITALS: BP 135/69
[2019-10-04 07:00] VITALS: BP 149/66
[2019-10-04] MEDS: ALBUTEROL SULFATE 2.5 MG/3 ML NEBU. NEB SCH ×2 (07:30→11:18)
[2019-10-04] MEDS ORDERED: ATOR40TA59 PO (08:40)
[2019-10-04] MEDS: amLODIPine BESYLATE 10 MG TABLET PO SCH (09:07)
[2019-10-04] MEDS: METOPROLOL SUCC 24HR ER 100 MG TAB.ER.24H. PO SCH (09:07)
[2019-10-04] MEDS: ISOSORBIDE MONONITRATE ER 30 MG TAB.ER.24H PO SCH (09:07)
[2019-10-04] MEDS: SOTALOL 80 MG TABLET. PO SCH (09:08)
[2019-10-04] MEDS: FUROSEMIDE 40 MG TABLET. PO SCH (09:08)
--- NOTE | 2019-10-04 09:54 | PDOC3 ---
Discharge Summary Visit Information Date of Admission: Oct 01, 2019 Date of Discharge: Oct 04, 2019 Admitting Diagnosis Comment: Diverticular bleed HGb trending down, 7 on dc NO more active bleed, NM scan neg CArdic dse on ASA and effient Final Diagnosis Problems Medical Problems: (1) Lower GI bleed Status: Acute Brief Hospital Course Allergies Allergies Coded Allergies Type Severity Reaction Last Updated Verified No Known Drug Allergies 07/23/14 No Vital Signs Vital Signs Date Time Temp Pulse Resp B/P (MAP) Pulse Ox O2 Delivery O2 Flow Rate FiO2 10/04/19 09:09 73 149/66 10/04/19 08:00 Room Air 10/04/19 07:31 98 10/04/19 07:00 97.8 18 97.8 Lab Results Laboratory Tests Test 10/02/19 12:05 10/02/19 17:50 10/03/19 03:40 10/03/19 12:15 Hemoglobin 9.0 g/dL (13.0-17.5) 9.1 g/dL (13.0-17.5) 8.3 g/dL (13.0-17.5) 8.5 g/dL (13.0-17.5) Hematocrit 27.9 % (39.0-53.0) 28.1 % (39.0-53.0) 25.3 % (39.0-53.0) 25.9 % (39.0-53.0) Mean Corpuscular Hemoglobin Concent 32 g/dL (31-37) 33 g/dL (31-37) 33 g/dL (31-37) 33 g/dL (31-37) Sodium Level 141 mmol/L (136-145) Potassium Level 3.8 mmol/L (3.5-5.1) Chloride Level 106 mmol/L (98-107) Carbon Dioxide Level 31 mmol/L (21-32) Anion Gap 4 (6-14) Blood Urea Nitrogen 19 mg/dL (8-26) Creatinine 1.0 mg/dL (0.7-1.3) Estimated GFR (Cockcroft-Gault) 87.4 Glucose Level 101 mg/dL (70-99) Calcium Level 8.2 mg/dL (8.5-10.1) Magnesium Level 2.0 mg/dL (1.8-2.4) Laboratory Tests Test 10/03/19 12:15 Hemoglobin 8.5 g/dL (13.0-17.5) Hematocrit 25.9 % (39.0-53.0) Mean Corpuscular Hemoglobin Concent 33 g/dL (31-37) Brief Hospital Course Mr. Pal is a 79 old AA male with cardiac hx, on asa and effient came in with BRBPR, hgb 7 on dc, has been trending down but no more active gI bleed, OP c scope advised, co managed with GI. VS stable,. Ok for home with dc educn instructions i have provided > 50% time,. I advsied to hold asa and effient 1-2 weeks, Ff up primary cards 1-2 weeks - dw cards too Consults: GI, cards PRoc: none Discharge Information Condition at Discharge: Improved, Stable Follow Up: Weeks (ff up primary cards 1-2 weeks) Disposition/Orders: D/C to Home Scheduled Albuterol Sulfate (Albuterol Sulfate Conc Neb Soln) 2.5 Mg/0.5 Ml Vial.neb, 1 VIAL NEB Q6HRS for , #120 Ref 5 (Reported) Entered as Reported by: ELLI FLORES RN on 10/01/19 0935 Last Action: Converted on 10/01/19 1524 by ELLI FLORES RN Amlodipine Besylate (Amlodipine Besylate) 10 Mg Tablet, 1 TAB PO DAILY, #30 Ref 5 (Reported) Entered as Reported by: YOCASTA SIEGEL on 07/22/14 1043 Last Action: Continued on 10/01/19 1306 by LIU BOB APRN Atorvastatin Calcium (Atorvastatin Calcium) 40 Mg Tablet, 40 MG PO QHS for lipids, #30 Prescribed by: CASSIE HERNANDEZ on 10/04/19 0840 Cholecalciferol (Vitamin D3) (Vitamin D) 50,000 Unit Capsule, 1 CAP PO WEEKLY for Vitamin D deficiency for 28 Days, #4 Ref 0 (Reported) Entered as Reported by: MARQUEZ LI on 07/29/19 0642 Last Action: Reviewed on 10/01/19 0935 by ELLI FLORES RN Furosemide (Furosemide) 40 Mg Tablet, 1 TAB PO DAILY for , #30 Ref 5 (Reported) Entered as Reported by: ELLI FLORES RN on 10/01/19934 Last Action: Continued on 10/01/191305 by LIU BOB APRN Hydralazine Hcl (Hydralazine Hcl) 50 Mg Tablet, 1 TAB PO TID for , #90 Ref 5 (Reported) Entered as Reported by: ELLI FLORES RN on 10/01/19934 Last Action: Continued on 10/01/191305 by LIU BBO APRN Isosorbide Mononitrate (Isosorbide Mononitrate Er) 30 Mg Tab.er.24h, 1 TAB PO DAILY for , #30 Ref 5 (Reported) Entered as Reported by: ELLI FLORES RN on 10/01/19934 Last Action: Continued on 10/01/191305 by LIU BOB APRN Latanoprost (Latanoprost) 2.5 Ml Drops, 1 DROP EACHEYE QHS for , #7.5 Ref 3 (Reported) Entered as Reported by: ELLI FLORES RN on 10/01/19934 Last Action: Continued on 10/01/191523 by ELLI FLORES RN Metoprolol Succinate (Metoprolol Succinate ( Xl )) 200 Mg Tab.er.24h, 1 TAB PO DAILY for , #30 Ref 5 (Reported) Entered as Reported by: ELLI FLORES RN on 10/01/19934 Last Action: Converted on 10/01/191305 by LIU BOB APRN Sotalol Hcl (Sotalol) 80 Mg Tablet, 120 MG PO BID for , (Reported) Entered as Reported by: ELLI FLORES RN on 10/01/19934 Last Action: Continued on 10/01/191305 by LIU BOB APRN Tamsulosin Hcl (Flomax) 0.4 Mg Cap.er.24h, 1 CAP PO HS for Urinary Retention, #30 Ref 11 (Reported) Entered as Reported by: MARQUEZ LI on 07/29/19641 Last Action: Continued on 10/01/191523 by ELLI FLORES RN Tizanidine Hcl (Zanaflex) 4 Mg Tablet, 1 TAB PO QHS for muscle relaxer for 30 Days, #30 Ref 0 (Reported) Entered as Reported by: MARQUEZ LI on 07/29/19641 Last Action: Continued on 10/01/191523 by ELLI FLORES RN Scheduled PRN Albuterol Sulfate (Albuterol Sulfate Conc Neb Soln) 2.5 Mg/0.5 Ml Vial.neb, 1 VIAL NEB PRN Q6HRS PRN for SHORTNESS OF BREATH, #120 Ref 5 (Reported) Entered as Reported by: ELLI FLORES RN on 10/01/19934 Last Action: Converted on 10/01/191523 by ELLI FLORES RN Fluticasone/Salmeterol (Advair 250-50 Diskus) 1 Each Disk.w.dev, 1 PUFF IH PRN PRN for SHORTNESS OF BREATH, #3 Ref 3 (Reported) Entered as Reported by: YOCASTA SIEGEL on 07/22/14 1038 Last Action: Reviewed on 10/01/19934 by ELLI FLORES RN Discontinued Medications Aspirin (Aspirin) 81 Mg Tab.chew, 1 TAB PO DAILY for , #30 Ref 3 (Reported) Entered as Reported by: ELLI FLORES RN on 10/01/19934 Last Action: New Order on 10/01/19934 by ELLI FLORES RN Prasugrel Hcl (Effient) 10 Mg Tablet, 1 TAB PO DAILY for , #90 Ref 1 (Reported) Entered as Reported by: ELLI FLORES RN on 10/01/19934 Last Action: New Order on 10/01/19934 by RAFAEL BIRCH CHERRIE Y MD Oct 04, 2019 09:54
--- NOTE | 2019-10-04 10:03 | PDOC ---
Subjective: Subjective: No bleeding. Tolerating diet. Would like to go home. Objective: Vital Signs: Vital Signs Date Time Temp Pulse Resp B/P (MAP) Pulse Ox O2 Delivery O2 Flow Rate FiO2 10/04/19 09:09 73 149/66 10/04/19 08:00 Room Air 10/04/19 07:31 98 10/04/19 07:00 97.8 18 97.8 PE: GEN: NAD LUNGS: CTAB HEART: RRR ABD: NABS, S/ND/NT NEURO/PSYCH: A & O 3 A/P: Suspected diverticular bleed - resolved, neg bleeding scan Anemia - Hgb last checked 10/03 (stable in 8-9 range) H/o CAD on ASA CRC screen - last in 2013 -- Stop PPI drip. DC per primary. Follow-up for outpt colonoscopy, consider iron supplementation for awhile. Will review timing of restarting ASA w/ Dr. Gabriel. KARO HERRERA Oct 04, 2019 10:03
[2019-10-04 11:00] VITALS: BP 148/68
--- NOTE | 2019-10-04 11:58 | SNU/HH DC ---
DISCHARGE WITH HOME HEALTH DISCHARGE INFORMATION: Discharge Date: Oct 04, 2019 Final Diagnosis: Problems Medical Problems: (1) Lower GI bleed Status: Acute Condition on Discharge: Stable CODE STATUS: Code Status: Full HOME HEALTH: Face to Face: I certify this patient is under my care and that I, or a nurse practitioner or physician's safety admin assistant working with me, had a face to face encounter that meets the physician face to face encounter requirements with this patient on []. Medical Complications: Other (gi bleed) RN For Eval/Treatment: Yes Physical Therapy For: Evalulation/Treatment Occupational Therapy For: Evaluation/Treatment Home Health Aide For: Self-care [employer] For: Community Resources Pt Meets Homebound Status: Unsteady balance w/ amb, POST DISCHARGE ORDERS: Activity Instructions for Disc: Activity as tolerated Weight Bearing Status after Di: As tolerated DIET AFTER DISCHARGE: Cardiac Wound/Incision Care: No wound care needed, Other, see below Other wound/incision instructi: FOLLOW UP WITH CARDIOLOGY AT [facility] FOR AFTERCARE CHECKS AFTER DISCHARGE: Checks after discharge: Check blood press - daily FOLLOW-UP: Follow up with: DR POWELL FOR OUTPATIENT SCOPE Follow Up With: YOUR PCP IN 1 WEEK TREATMENT/EQUIPMENT ORDERS: Adaptive Equipment Issued: Front wheeled walker CERTIFICATION STATEMENT: Certification Statement: Certification Statement: Based on the above finding, I certify that this patient is confined to the home and needs intermittent long term care, physical therapy and/or speech therapy, or continues to need occupational therapy.~ This patient is under my care, and I have initiated the establishment of the plan of care.~ This patient will be followed by myself or a community physician who will periodically review the plan of care. Home Meds Active Scripts Atorvastatin Calcium (ATORVASTATIN CALCIUM) 40 Mg Tablet, 40 MG PO QHS for lipids, #30 TAB Prov:CASSIE HERNANDEZ MD 10/04/19 Reported Medications Latanoprost (LATANOPROST) 2.5 Ml Drops, 1 DROP EACHEYE QHS for , #7.5 ML 3 Refills 10/01/19 Isosorbide Mononitrate (ISOSORBIDE MONONITRATE ER) 30 Mg Tab.er.24h, 1 TAB PO DAILY for , #30 TAB 5 Refills 10/01/19 Hydralazine Hcl (HYDRALAZINE HCL) 50 Mg Tablet, 1 TAB PO TID for , #90 TAB 5 Refills 10/01/19 Albuterol Sulfate (ALBUTEROL SULFATE CONC NEB SOLN) 2.5 Mg/0.5 Ml Vial.neb, 1 VIAL NEB PRN Q6HRS PRN for SHORTNESS OF BREATH, #120 VIAL 5 Refills 10/01/19 Albuterol Sulfate (ALBUTEROL SULFATE CONC NEB SOLN) 2.5 Mg/0.5 Ml Vial.neb, 1 VIAL NEB Q6HRS for , #120 VIAL 5 Refills 10/01/19 Metoprolol Succinate (METOPROLOL SUCCINATE ( XL )) 200 Mg Tab.er.24h, 1 TAB PO DAILY for , #30 TAB 5 Refills 10/01/19 Sotalol Hcl (SOTALOL) 80 Mg Tablet, 120 MG PO BID for , TAB 10/01/19 Furosemide (FUROSEMIDE) 40 Mg Tablet, 1 TAB PO DAILY for , #30 TAB 5 Refills 10/01/19 Cholecalciferol (Vitamin D3) (Vitamin D) 50,000 Unit Capsule, 1 CAP PO WEEKLY for Vitamin D deficiency for 28 Days, #4 CAP 0 Refills 07/29/19 Tizanidine Hcl (ZANAFLEX) 4 Mg Tablet, 1 TAB PO QHS for muscle relaxer for 30 Days, #30 TAB 0 Refills 07/29/19 Tamsulosin Hcl (FLOMAX) 0.4 Mg Cap.er.24h, 1 CAP PO HS for Urinary Retention, #30 CAP 11 Refills 07/29/19 Amlodipine Besylate (AMLODIPINE BESYLATE) 10 Mg Tablet, 1 TAB PO DAILY, #30 TAB 5 Refills 07/22/14 Fluticasone/Salmeterol (ADVAIR 250-50 DISKUS) 1 Each Disk.w.dev, 1 PUFF IH PRN PRN for SHORTNESS OF BREATH, #3 INHALER 3 Refills 07/22/14 Discontinued Reported Medications Prasugrel Hcl (EFFIENT) 10 Mg Tablet, 1 TAB PO DAILY for , #90 TAB 1 Refill 10/01/19 Aspirin (ASPIRIN) 81 Mg Tab.chew, 1 TAB PO DAILY for , #30 TAB 3 Refills 10/01/19 CASSIE HERNANDEZ MD Oct 04, 2019 11:58
--- NOTE | 2019-10-04 15:16 | NUR ---
HH resumption orders faxed to [facility] and discussed with Intake team. Discussed with RN.
== END 2019-10-04 12:24 | disposition home health service (06) | DRG 377 ==
LOC: ER 04:06 → 2 SOUTH 06:24
PROVIDERS: ADMIT Internal Medicine; ATTEND Internal Medicine
DX: K57.91 Diverticulosis of intestine, part unspecified, without perforation or abscess with bleeding (principal); E43 Unspecified severe protein-calorie malnutrition; I50.22 Chronic systolic (congestive) heart failure; I13.0 Hypertensive heart and chronic kidney disease with heart failure and stage 1 through stage 4 chronic kidney disease, or unspecified chronic kidney disease; I25.10 Atherosclerotic heart disease of native coronary artery without angina pectoris; M10.9 Gout, unspecified; D64.9 Anemia, unspecified; I25.5 Ischemic cardiomyopathy; N18.9 Chronic kidney disease, unspecified; J45.909 Unspecified asthma, uncomplicated; K64.9 Unspecified hemorrhoids; Z68.31 Body mass index [BMI] 31.0-31.9, adult; Z79.82 Long term (current) use of aspirin; Z79.02 Long term (current) use of antithrombotics/antiplatelets; Z95.5 Presence of coronary angioplasty implant and graft; Z95.0 Presence of cardiac pacemaker; Z79.01 Long term (current) use of anticoagulants; I25.2 Old myocardial infarction; Z82.49 Family history of ischemic heart disease and other diseases of the circulatory system
CPT/HCPCS: 36415; 78278; 80048; 80053; 82274; 83735; 85014; 85018; 85025; 85610; 86850; 86900; 86901; 93005; 94640; 94760; 96374; 96375; 96376; A9560; C9113; J1885; J2405; J7030; J7613; 99285-25; G0378

== ENCOUNTER 2021-04-27 08:26 | Outpatient (CLI) | payer MEDICARE ==
[2021-04-27] VITALS (14 sets, daily range): BP systolic 114–146; BP diastolic 55–85
[~2021-04-27] VITALS: Ht 177.8 cm; Wt 100.0 kg
[~2021-04-27 08:26] MED LIST changes: +ALBU2.5V14 NEB; +ALBU2.5V8 IH; +ALLO300T PO; +AMIO200T6 PO; +AMLO-187 PO; -AMLO10TA8 PO; +ASPI-630 PO; +ATOR40TA59 PO; +CARB15DR65 EACHEYE; +FURO40TA4 PO; +HYDR-2869 PO; +ISOS30TA68 PO; +LATA2.5D3 EACHEYE; +METO200T46 PO; +POTA10TA12 PO; +PRAS10TA9 PO; +SOTA80TA48 PO
[2021-04-27 10:13] LABS: HEMATOCRIT 36.9 % (39.0-53.0); HEMOGLOBIN 11.5 g/dL (13.0-17.5); RED BLOOD COUNT 4.42 x10^6/uL (4.30-5.70); RED CELL DISTRIBUTION WIDTH 23.1 % (11.5-14.5); WHITE BLOOD COUNT 4.5 x10^3/uL (4.0-11.0)
[2021-04-27 10:26] LABS: PROTHROMBIN TIME PATIENT 16.5 SEC (11.7-14.0)
[2021-04-27 10:27] LABS: CALCIUM 8.6 mg/dL (8.5-10.1); CREATININE 1.1 mg/dL (0.7-1.3); GFR 77.9; POTASSIUM 3.5 mmol/L (3.5-5.1)
[2021-04-27] MEDS ORDERED: fentaNYL PF VIAL 100 MCG/2 ML VIAL IV ONE (12:30)
[2021-04-27] MEDS ORDERED: IODIXANOL 320 MG/ML 100 ML VIAL. IART ONE (12:30)
[2021-04-27] MEDS ORDERED: MIDAZOLAM HCL/PF 2 MG/2 ML VIAL. IV ONE (12:30)
[2021-04-27] MEDS ORDERED: MIDAZOLAM HCL/PF 2 MG/2 ML VIAL. ONE (13:21)
[2021-04-27] MEDS ORDERED: fentaNYL PF VIAL 100 MCG/2 ML VIAL ONE (13:22)
[2021-04-27] MEDS ORDERED: LIDOCAINE 1% Multi-Dose 20 ML VIAL. ONE (13:24)
[2021-04-27] MEDS ORDERED: IODIXANOL 320 MG/ML 100 ML VIAL. ONE (13:24)
[2021-04-27] MEDS ORDERED: LIDOCAINE 1% Multi-Dose 20 ML VIAL. INJ ONE (13:30)
[2021-04-27] MEDS ORDERED: HEPARIN for IV BOLUS 10,000 UNIT/10 ML VIAL. ONE (13:34)
[2021-04-27] MEDS ORDERED: VERAPAMIL 5 MG/2 ML VIAL. ONE (13:34)
[2021-04-27] MEDS ORDERED: HEPARIN for IV BOLUS 10,000 UNIT/10 ML VIAL. IART ONE (13:45)
[2021-04-27] MEDS ORDERED: NITROGLYCERIN 200 MCG/2 ML SYRINGE FOR CATH/VASC LAB. IART ONE (13:45)
[2021-04-27] MEDS ORDERED: VERAPAMIL 5 MG/2 ML VIAL. IART ONE (13:45)
--- NOTE | 2021-04-27 17:46 | NUR ---
Discharge Note: CARLOS EDUARDO VILCHIS Discharge instructions and discharge home medications reviewed with Patient & his son and a copy given. All questions have been answered and understanding verbalized. The following instructions and handouts were given: radial site care,adult moderate sedation,and incision care Discontinued lines and drains: Peripheral IV intact. Patient discharged to Home or Self Care withFamily Membera Wheelchair
--- NOTE | 2021-04-28 20:34 | CARD ---
MR#: [id number] Date of Study: 04/27/2021 Ordering Physician: GUNJAN LOERA, Referring Physician: GUNJAN LOERA, Tech: RT Shine(R) APPROVED REPORT Technologist: Aysha Granado RT(R) Nurse: Vivi Bertrand RN Procedure(s) performed: Sedation Time: 40 Minutes Dose: 41 Gycm2 Fluoro Time: 2.4 Minutes Contrast: 32 mL Visipaque 320 Right and left heart catheterization Coronary angiography [facility] Clinical Frailty Scale [facility] Clinical Frailty Scale: Moderately Frail Heart Failure Heart Failure: Yes If Yes, Newly Diagnosed: No If Yes, HF Type: Diastolic Systolic If Yes, NYHA Class: Class II CASE TECHNIQUE IV conscious sedation was used throughout procedure with appropriate monitoring and was performed in the presence of a registered nurse who was an independent trained observer other than the physician p erforming the procedure. During this case, Fluoroscopy and low osmolar contrast were used for imaging . Specimen(s) Removed: N/A Estimated Blood loss: 15 cc's. PROCEDURE NARRATIVE Clinical information: 81-year-old male with past medical history of nonischemic cardiomyopathy status post dual-chamber ICD several years ago who was lost to follow-up was seen recently at [facility] for worse macario systolic and diastolic heart failure. He was found to have moderate to severe aortic stenosis. Due to persistent symptoms of dyspnea and lower extremity edema he was seen in the office and was fo und to have heart failure and therefore a right and left heart catheter[facility] was [facility] of his coronary anatomy and valvular heart disease and hemodynamics. Procedure details: The right neck and right wrist were prepped and draped in usual sterile fashion after appropriate inf ormed consent. Under 1% lidocaine local anesthesia a 8 Cuban sheath was placed in the right interna l jugular vein via ultrasound and fluoroscopic guidance. Next, a 6 Cuban sheath was placed in the r ight radial artery. Diagnostic angiography was performed with a 6 Cuban TIG catheter and a pigtail catheter. LVEDP was obtained with a pigtail catheter and a pullback was performed. Right heart cath eterization was performed with a 7.5 Cuban PA catheter and pressures and saturations were obtained. Findings: Hemodynamics: Aorta 140/80 LV to aortic pullback gradient peak to peak 60 mmHg, mean gradient on echocardiogram was approximatel y 35 mmHg Right heart catheterization: RA 17 mmHg RV 49/11/15 PA 46/21/31 Wedge 24 mmHg LVEDP 23 mmHg PA saturation 73%, FA saturation 98% Nadia cardiac output 6.2 L/min, cardiac index 2.8 Coronary angiography: Left main is a large short caliber vessel with normal angiographic appearance LAD is a large-caliber vessel with mild to moderate diffuse irregularities of up to 50% in the mid se gment Ramus is a small caliber vessel with a patent mid stent. Left circumflex is a large-caliber vessel with moderate diffuse irregularities of up to 50% LPL 1 and LPL 2 are moderate caliber vessels with mild luminal irregularities RCA is a large caliber dominant vessel with a proximal 50% stenosis At case completion the right radial sheath was removed and hemostasis was achieved with a Terumo radi al band. The right IJ sheath was removed and hemostasis was achieved via manual compression. No acute complications noted. Conclusion 1. Biventricular pressure overload 2. Mild group 2 pulmonary hypertension, mean PA 31 mmHg 3. Normal cardiac output 4. Mild to moderate nonobstructive three-vessel coronary artery disease 5. Patent ramus stent. Recommendations 1. Case discussed with [facility] and patient will be referred there for evaluatio n of aortic stenosis and possible transcatheter aortic valve replacement. 2. Increase diuretics given volume overload. Continue other goal-directed medical therapy. Signed by : Gunjan Loera, Electronically Approved : 04/28/2021 20:33:49
== END 2021-04-27 17:54 | disposition home or self-care (01) ==
LOC: CCL 08:26
PROVIDERS: ATTEND Internal Medicine Cardiovascular Disease
DX: I11.0 Hypertensive heart disease with heart failure (principal); I50.40 Unspecified combined systolic (congestive) and diastolic (congestive) heart failure; I25.10 Atherosclerotic heart disease of native coronary artery without angina pectoris; J45.909 Unspecified asthma, uncomplicated; M10.9 Gout, unspecified; N40.0 Benign prostatic hyperplasia without lower urinary tract symptoms; Z87.891 Personal history of nicotine dependence; Z79.899 Other long term (current) drug therapy; Z98.890 Other specified postprocedural states; Z79.82 Long term (current) use of aspirin
CPT/HCPCS: 36415; 80048; 85027; 85610; 93460; 99152; 99153; C1769; C1773; C1894; J1644; J2250; J3010; J3490; Q9967

== ENCOUNTER → 2021-09-04 | Outpatient (CLI) | payer MEDICARE ==
[2021-04-27 17:40] VITALS: BP 140/80
[~2021-09-04] MED LIST changes: +AMIO200T53 PO; -AMIO200T6 PO
== END ==
LOC: SPEC 14:56
PROVIDERS: ATTEND Family Medicine
DX: Z01.810 Encounter for preprocedural cardiovascular examination (principal); Z20.822 Contact with and (suspected) exposure to COVID-19
CPT/HCPCS: U0003

== ENCOUNTER → 2021-09-22 | Outpatient (CLI) | payer MEDICARE ==
[2021-04-27 17:40] VITALS: BP 140/80
[2021-09-22 11:40] LABS: CHOLESTEROL/HDL RATIO 2.1
== END ==
LOC: SPEC 08:08
PROVIDERS: ATTEND Family Medicine
DX: E03.9 Hypothyroidism, unspecified (principal); E78.5 Hyperlipidemia, unspecified; E55.9 Vitamin D deficiency, unspecified
CPT/HCPCS: 36415; 80061; 82306; 84443

== ENCOUNTER → 2021-09-28 | Outpatient (CLI) | payer MEDICARE ==
[2021-04-27 17:40] VITALS: BP 140/80
[2021-09-28 06:59] LABS: BASO # 0.1 x10^3/uL (0.0-0.2); BASO % 2 % (0-3); EOS # 0.1 x10^3/uL (0.0-0.7); EOS % 3 % (0-3); HEMOGLOBIN 11.5 g/dL (13.0-17.5); LYMPH # 1.5 x10^3/uL (1.0-4.8); LYMPH % 39 % (24-48); MEAN CORPUSCULAR HEMOGLOBIN 29 pg (25-35); MEAN CORPUSCULAR HGB CONC 32 g/dL (31-37); MEAN CORPUSCULAR VOLUME 91 fL (79-100); MONO # 0.5 x10^3/uL (0.0-1.1); MONO % 14 % (0-9); NEUT # 1.6 x10^3/uL (1.8-7.7); NEUT % 42 % (31-73); PLATELET COUNT 319 x10^3/uL (140-400); RED BLOOD COUNT 3.97 x10^6/uL (4.30-5.70); RED CELL DISTRIBUTION WIDTH 21.6 % (11.5-14.5); WHITE BLOOD COUNT 3.7 x10^3/uL (4.0-11.0)
[2021-09-28 07:27] LABS: ALBUMIN 2.8 g/dL (3.4-5.0); ALBUMIN/GLOBULIN RATIO 0.5 (1.0-1.7); CALCIUM 8.8 mg/dL (8.5-10.1); CREATININE 1.7 mg/dL (0.7-1.3); GFR 47.2; POTASSIUM 3.9 mmol/L (3.5-5.1); TOTAL BILIRUBIN 1.2 mg/dL (0.2-1.0); TOTAL PROTEIN 8.5 g/dL (6.4-8.2)
[2021-09-28 12:18] LABS: ANISOCYTOSIS PRESENT; PLT ESTIMATE ADEQUATE (ADEQUATE)
== END ==
LOC: SPEC 00:38
PROVIDERS: ATTEND Family Medicine
DX: I50.42 Chronic combined systolic (congestive) and diastolic (congestive) heart failure (principal); J44.9 Chronic obstructive pulmonary disease, unspecified
CPT/HCPCS: 36415; 80053; 85025

== ENCOUNTER → 2021-10-04 | Outpatient (CLI) | payer MEDICARE ==
[2021-04-27 17:40] VITALS: BP 140/80
[2021-10-04 07:58] LABS: CALCIUM 8.7 mg/dL (8.5-10.1); CREATININE 1.4 mg/dL (0.7-1.3); POTASSIUM 4.6 mmol/L (3.5-5.1)
== END ==
LOC: SPEC 00:40
PROVIDERS: ATTEND Family Medicine
DX: I50.42 Chronic combined systolic (congestive) and diastolic (congestive) heart failure (principal)
CPT/HCPCS: 36415; 80048

== ENCOUNTER → 2021-10-07 | Outpatient (CLI) | payer MEDICARE ==
[2021-04-27 17:40] VITALS: BP 140/80
== END ==
LOC: SPEC 11:24
PROVIDERS: ATTEND Family Medicine
DX: Z01.812 Encounter for preprocedural laboratory examination (principal); Z20.822 Contact with and (suspected) exposure to COVID-19
CPT/HCPCS: 87426

== ENCOUNTER → 2021-10-27 | Outpatient (CLI) | payer MEDICARE ==
[2021-04-27 17:40] VITALS: BP 140/80
[2021-10-27 07:54] LABS: CALCIUM 8.8 mg/dL (8.5-10.1); CREATININE 1.3 mg/dL (0.7-1.3); GFR 64.3; POTASSIUM 4.9 mmol/L (3.5-5.1)
== END ==
LOC: SPEC 00:54
PROVIDERS: ATTEND Family Medicine
DX: I50.9 Heart failure, unspecified (principal)
CPT/HCPCS: 36415; 80048

== ENCOUNTER → 2021-12-10 | Outpatient (CLI) | payer MEDICARE, MEDICAID ==
[2021-04-27 17:40] VITALS: BP 140/80
[2021-12-06 09:59] LABS: BASO # 0.1 x10^3/uL (0.0-0.2); BASO % 2 % (0-3); EOS # 0.3 x10^3/uL (0.0-0.7); EOS % 6 % (0-3); HEMATOCRIT 36.6 % (39.0-53.0); HEMOGLOBIN 11.6 g/dL (13.0-17.5); LYMPH # 1.6 x10^3/uL (1.0-4.8); LYMPH % 33 % (24-48); MEAN CORPUSCULAR HEMOGLOBIN 30 pg (25-35); MEAN CORPUSCULAR HGB CONC 32 g/dL (31-37); MEAN CORPUSCULAR VOLUME 94 fL (79-100); MONO # 0.7 x10^3/uL (0.0-1.1); MONO % 13 % (0-9); NEUT # 2.4 x10^3/uL (1.8-7.7); NEUT % 47 % (31-73); PLATELET COUNT 370 x10^3/uL (140-400); RED BLOOD COUNT 3.91 x10^6/uL (4.30-5.70); RED CELL DISTRIBUTION WIDTH 17.5 % (11.5-14.5)
[2021-12-06 10:41] LABS: ALBUMIN 2.7 g/dL (3.4-5.0); ALBUMIN/GLOBULIN RATIO 0.5 (1.0-1.7); CALCIUM 8.3 mg/dL (8.5-10.1); CREATININE 1.2 mg/dL (0.7-1.3); GFR 70.5; POTASSIUM 5.1 mmol/L (3.5-5.1); TOTAL BILIRUBIN 0.6 mg/dL (0.2-1.0); TOTAL PROTEIN 7.7 g/dL (6.4-8.2)
== END ==
LOC: SPEC 12-06 01:10 → EDSTATUS 14:45 → SPEC 14:47
PROVIDERS: ATTEND Family Medicine
DX: T82.7XXD Infection and inflammatory reaction due to other cardiac and vascular devices, implants and grafts, subsequent encounter (principal); Z79.2 Long term (current) use of antibiotics; X58.XXXD Exposure to other specified factors, subsequent encounter
CPT/HCPCS: 36415; 80053; 85025

== ENCOUNTER → 2021-12-13 | Outpatient (CLI) | payer MEDICARE ==
[2021-04-27 17:40] VITALS: BP 140/80
[2021-12-13 07:57] LABS: BASO # 0.1 x10^3/uL (0.0-0.2); BASO % 3 % (0-3); EOS # 0.7 x10^3/uL (0.0-0.7); EOS % 13 % (0-3); HEMATOCRIT 36.8 % (39.0-53.0); HEMOGLOBIN 11.5 g/dL (13.0-17.5); LYMPH # 1.4 x10^3/uL (1.0-4.8); LYMPH % 29 % (24-48); MEAN CORPUSCULAR HEMOGLOBIN 30 pg (25-35); MEAN CORPUSCULAR HGB CONC 31 g/dL (31-37); MEAN CORPUSCULAR VOLUME 95 fL (79-100); MONO # 0.6 x10^3/uL (0.0-1.1); MONO % 11 % (0-9); NEUT # 2.2 x10^3/uL (1.8-7.7); NEUT % 44 % (31-73); PLATELET COUNT 238 x10^3/uL (140-400); RED BLOOD COUNT 3.88 x10^6/uL (4.30-5.70)
[2021-12-13 08:08] LABS: ALBUMIN 2.8 g/dL (3.4-5.0); ALBUMIN/GLOBULIN RATIO 0.5 (1.0-1.7); CALCIUM 8.7 mg/dL (8.5-10.1); CREATININE 1.3 mg/dL (0.7-1.3); GFR 64.3; POTASSIUM 4.5 mmol/L (3.5-5.1); TOTAL BILIRUBIN 0.5 mg/dL (0.2-1.0)
== END ==
LOC: SPEC 01:58 → EDSTATUS 12-29 15:00 → SPEC 12-29 15:05
PROVIDERS: ATTEND Family Medicine
DX: T82.7XXD Infection and inflammatory reaction due to other cardiac and vascular devices, implants and grafts, subsequent encounter (principal); Z79.2 Long term (current) use of antibiotics; Y82.8 Other medical devices associated with adverse incidents
CPT/HCPCS: 36415; 80053; 85025